=== PATIENT | female | born 1970 | race Caucasian/White ===

== ENCOUNTER 2018-02-06 08:55 | Inpatient (IN) | payer OTHER, SELFPAY | END 2018-02-07 18:30 | DRG 918 | PROVIDERS: Admitting Provider Internal Medicine; Emergency Provider Emergency Medicine; Family Provider Nurse Practitioner Family; PCP Nurse Practitioner Family; Visit Provider Internal Medicine | DX: T39.012A Poisoning by aspirin, intentional self-harm, initial encounter (principal); E87.3 Alkalosis; F32.9 Major depressive disorder, single episode, unspecified; Z87.891 Personal history of nicotine dependence | CPT/HCPCS: 36000; 36415; 36600; 74010; 74019; 80051; 80053; 80305; 80320; 80329; 81003; 82805; 83930; 84439; 84443; 85025; 87797; 93005; 93010; 96361; 96365; 96366; 99058; 99285; G0480; J1650; J3480 ==

== ENCOUNTER → 2018-08-05 12:44 | Outpatient (CLI) | payer OTHER, SELFPAY ==
--- NOTE | 2018-08-05 | DI.MG.S_ITS ---
BILATERAL DIGITAL SCREENING MAMMOGRAM 3D/2D WITH CAD: 08/05/2018 CLINICAL: Routine screening. Comparison is made to exams dated: 08/02/2017 mammogram, 08/11/2016 mammogram, and 07/31/2016 mammogram - [facility]. The tissue of both breasts is heterogeneously dense. This may lower the sensitivity of mammography. Current study was also evaluated with a Computer Aided Detection (CAD) system. There is architectural distortion in the left breast at 6 o'clock middle depth. No other significant masses, calcifications, or other findings are seen in either breast. IMPRESSION: INCOMPLETE: NEEDS ADDITIONAL IMAGING EVALUATION The architectural distortion in the left breast is indeterminate. Additional views with possible ultrasound are recommended. This exam was interpreted at Station ID: [id number]. NOTE: For mammograms, a report in lay terms will be sent to the patient. Approximately 15% of breast malignancies will not be visualized mammographically. In the management of a palpable breast mass, a negative mammogram must not discourage biopsy of a clinically suspicious lesion. Electronically Signed By: Lynn [email or web address]/[email or web address]:08/06/2018 10:46:54 letter sent: Additional Imaging Needed ACR BI-RADS Category 0: Incomplete 3340F
== END ==
PROVIDERS: Family Provider Nurse Practitioner Family; PCP Nurse Practitioner Family; Visit Provider Nurse Practitioner Family
DX: Z12.31 Encounter for screening mammogram for malignant neoplasm of breast (principal)
CPT/HCPCS: 77063; 77067

== ENCOUNTER → 2018-08-30 08:20 | Outpatient (CLI) | payer OTHER, SELFPAY ==
--- NOTE | 2018-08-30 | DI.MG.S_ITS ---
UNILATERAL LEFT DIGITAL DIAGNOSTIC MAMMOGRAM 3D/2D WITH ADDITIONAL VIEWS: 08/30/2018 CLINICAL: Additional evaluation requested from prior study. Comparison is made to exams dated: 08/05/2018 mammogram, 08/02/2017 mammogram, 08/11/2016 mammogram, and 07/31/2016 mammogram - [facility]. The tissue of left breast is heterogeneously dense. This may lower the sensitivity of mammography. The architectural distortion in the left breast at 6 o'clock middle depth is not seen in additional views. No other significant masses or calcifications are seen in the breast. IMPRESSION: There is no mammographic evidence of malignancy. A 1 year screening mammogram is recommended. This exam was interpreted at Station ID: [id number]. NOTE: For mammograms, a report in lay terms will be sent to the patient. Approximately 15% of breast malignancies will not be visualized mammographically. In the management of a palpable breast mass, a negative mammogram must not discourage biopsy of a clinically suspicious lesion. Electronically Signed By: Lynn Alvarado M.D. lk/:08/30/2018 08:56:43 letter sent: Normal Exam ACR BI-RADS Category 2: Benign Finding(s) 3342F
== END ==
PROVIDERS: Family Provider Nurse Practitioner Family; PCP Nurse Practitioner Family; Visit Provider Nurse Practitioner Family
DX: R92.8 Other abnormal and inconclusive findings on diagnostic imaging of breast (principal)
CPT/HCPCS: 77065; G0279

== ENCOUNTER → 2018-09-29 17:29 | Outpatient (CLI) | payer OTHER, SELFPAY ==
[2018-09-29 18:12] LABS: Influenza A and B by PCR Rapid Negative (Negative)
== END ==
PROVIDERS: Family Provider Nurse Practitioner Family; PCP Nurse Practitioner Family; Visit Provider Physician Assistant
DX: R68.89 Other general symptoms and signs (principal)
CPT/HCPCS: 87400

== ENCOUNTER → 2018-10-17 18:40 | Outpatient (CLI) | payer OTHER, SELFPAY ==
--- NOTE | 2018-10-17 18:41 | DI.RAD.S_ITS ---
PROCEDURE: XR SHOULDER RT MIN 2V INDICATIONS: pain with lateral and forward abduction TECHNIQUE: 3 views of the shoulder were acquired. COMPARISON: None. FINDINGS: Bones: No fractures or dislocations. No suspicious bony lesions. Visualized ribs appear intact. Mild AC joint degeneration. Mild glenohumeral degenerative joint disease Soft tissues: No suspicious soft tissue calcifications. IMPRESSION: Mild right shoulder joint degeneration. Dictated by: Bean Street M.D. on 10/17/2018 at 19:02 Approved by: Bean Street M.D. on 10/17/2018 at 19:03
== END ==
PROVIDERS: Family Provider Nurse Practitioner Family; PCP Nurse Practitioner Family; Visit Provider Physician Assistant
DX: M25.511 Pain in right shoulder (principal); M19.011 Primary osteoarthritis, right shoulder
CPT/HCPCS: 73030

== ENCOUNTER → 2018-10-21 13:44 | Outpatient (CLI) | payer OTHER, SELFPAY ==
--- NOTE | 2018-10-21 13:45 | DI.MRI.S_ITS ---
PROCEDURE: MR SHOULDER RT WO CON INDICATIONS: Right shoulder pain with foward and lateral abduction TECHNIQUE: Noncontrast oblique coronal T2 fast spin echo with fat saturation, oblique sagittal T1 spin echo and T2 fast spin echo with fat saturation, axial T1 spin echo and T2 fast spin echo with fat saturation through the shoulder. COMPARISON: None. FINDINGS: Image quality: Excellent. Rotator cuff: There is moderate grade bursal surface partial thickness tear involving anterior fibers of the distal supraspinatus at its insertion on greater tuberosity of humeral head extending to the musculotendinous junction at the level of the a.c. joint. Tendinosis and low-grade bursal surface partial-thickness tear involving the posterior fibers of the distal supraspinatus and infraspinatus is seen. Distal subscapularis tendinosis or low-grade intrasubstance partial thickness tear is seen. No full-thickness rotator cuff tendon rupture. Sagittal images demonstrate mild supraspinatus muscle atrophy. Bones and bursae: No bone marrow contusions or fractures. Mild to moderate acromioclavicular joint osteoarthritis is seen with inferior osteophyte formation compressing on musculotendinous junction of rotator cuff tendons. Mild to moderate glenohumeral joint osteoarthritis is also seen. Small amount of fluid is seen the glenohumeral joint and subacromial subdeltoid bursa. No gross loose body. Capsule and soft tissues: In the absence of intra-articular contrast, there is suggestion of superior anterior labral tear from 12 to 2:00 position. Anterior inferior labral tear is also likely present fall 5 to 6:00 position. The glenohumeral ligaments appear intact. The long head of the biceps tendon demonstrates normal location and morphology. The rotator interval appears normal, without fibrosis. The coracohumeral ligament is normal in thickness. IMPRESSION: 1. Tendinosis and moderate to high grade bursal surface partial-thickness tear involving anterior to mid fibers of distal supraspinatus at its insertion on the humeral head extending to musculotendinous junction. Tendinosis and low-grade bursal surface partial-thickness tear involving the posterior fibers of distal supraspinatus and infraspinatus. Distal subscapularis tendinosis and low-grade intrasubstance partial thickness tear. Mild supraspinatus muscle atrophy. 2. Suggestion of anterior superior labral tear at 12 to 2:00 position and an anterior inferior labral tear at 5 to 6:00 position. 3. Mild to moderate acromioclavicular joint and glenohumeral joint osteoarthritis. Dictated by: Tony Singer M.D. on 10/21/2018 at 14:21 Approved by: Tony Singer M.D. on 10/21/2018 at 14:38
== END ==
PROVIDERS: Family Provider Nurse Practitioner Family; PCP Nurse Practitioner Family; Visit Provider Physician Assistant
DX: M25.511 Pain in right shoulder (principal); M75.111 Incomplete rotator cuff tear or rupture of right shoulder, not specified as traumatic; M19.011 Primary osteoarthritis, right shoulder
CPT/HCPCS: 73221

== ENCOUNTER → 2018-11-18 08:36 | Outpatient (CLI) | payer OTHER, SELFPAY ==
--- NOTE | 2018-11-18 | DI.US.S_ITS ---
PROCEDURE: US ABDOMEN COMPLETE INDICATIONS: ELEVATED LIVER ENZYMES TECHNIQUE: Real-time scanning was performed of the abdominal and retroperitoneal organs, with image documentation. COMPARISON: [facility], , ABDOMEN 2 VIEW, 02/06/2018, 12:38. FINDINGS: Liver: Liver is normal in size (right hepatic lobe measuring 15.0 cm in sagittal diameter) and is diffusely increased in echogenicity. The imaged portions of the hepatic veins and portal vein appear patent on Doppler imaging. Gallbladder: Gallbladder appears unremarkable. Negative sonographic Garrido's sign per suspender cutter. Biliary ducts: Intrahepatic bile ducts are non-dilated. Extrahepatic bile duct caliber measures 5 mm in greatest diameter. Pancreas: Visualized portions of the pancreatic head are unremarkable. Pancreatic body and tail are obscured by overlying bowel gas. Spleen: Spleen is normal in size (9.2 cm in long axis) and homogeneous in echotexture. Kidneys: Kidneys are normal in size and echotexture. Right kidney measures 10.8 cm long; left kidney measures 10.4 cm long. No hydronephrosis or nephrolithiasis. Aorta: Proximal abdominal aorta measures 2.2 cm in diameter. Mid-abdominal aorta measures 2.0 cm in diameter. Distal abdominal aorta measures 1.7 cm in diameter. Iliacs: Proximal common iliac arteries are not seen on this exam, as they are obscured by overlying bowel gas IVC: Intrahepatic inferior vena cava appears patent. Miscellaneous: There is a trace pleural fluid/effusion seen near the left hepatic lobe. IMPRESSION: 1. Increased hepatic echogenicity, which can be seen with hepatic steatosis, hepatic fibrosis/cirrhosis, and/or hepatitis. 2. Trace pleural fluid/effusion. Dictated by: James Rasmussen M.D. on 11/18/2018 at 10:44 Approved by: James Rasmussen M.D. on 11/18/2018 at 11:05
== END ==
PROVIDERS: Family Provider Nurse Practitioner Family; PCP Nurse Practitioner Family; Visit Provider Nurse Practitioner Family
DX: R74.8 Abnormal levels of other serum enzymes (principal)
CPT/HCPCS: 76700

== ENCOUNTER → 2018-12-21 15:20 | Outpatient (CLI) | payer OTHER, SELFPAY ==
[2018-12-21 15:46] LABS: Influenza A and B by PCR Rapid Negative (Negative)
== END ==
PROVIDERS: Family Provider Nurse Practitioner Family; PCP Nurse Practitioner Family; Visit Provider Physician Assistant
DX: R68.89 Other general symptoms and signs (principal)
CPT/HCPCS: 87400

== ENCOUNTER → 2019-01-09 11:35 | Outpatient (REF) | payer OTHER, SELFPAY ==
[2019-01-09 11:57] LABS: Influenza A and B by PCR Rapid Negative (Negative)
== END ==
LOC: LAB 11:35
PROVIDERS: Family Provider Nurse Practitioner Family; PCP Nurse Practitioner Family; Visit Provider Family Medicine
DX: Z11.59 Encounter for screening for other viral diseases (principal)
CPT/HCPCS: 87400

== ENCOUNTER 2019-02-26 19:40 | Emergency (ER) | payer OTHER, SELFPAY ==
[2019-02-26 19:47] VITALS: BP 119/84; PULSE 93; RESP 14; TEMP 36.2; O2SAT 97
--- NOTE | 2019-02-26 19:53 | DI.RAD.S_ITS ---
PROCEDURE: XR HAND RT MIN 3V INDICATIONS: crush injury TECHNIQUE: 3 views of the hand(s) acquired. COMPARISON: None. FINDINGS: Bones: No fractures or dislocations. Carpal bones are normally aligned. No suspicious bony lesions. Soft tissues: No suspicious soft tissue calcifications. IMPRESSION: No fracture Dictated by: Bean Street M.D. on 02/26/2019 at 20:31 Approved by: Bean Street M.D. on 02/26/2019 at 20:32
--- NOTE | 2019-02-26 22:11 | ED.UPPEXIN ---
HPI - Extremity Injury (Upper) <VALENCIA Molina-BC - Last Filed: 02/26/19 22:22> General Chief Complaint: Extremity Injury, Upper Stated Complaint: RT HAND INJURY Time Seen by Provider: 02/26/19 21:55 Source: patient Mode of arrival: ambulatory Limitations: no limitations History of Present Illness HPI narrative: The patient is a 48-year-old female with history of anxiety and is a former smoker presents with chief complaint of right hand pain. 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 She complains of bruising. She has not taken anything for pain. She is worried about a fracture. She denies any previous injuries to her hand. She is right-hand dominant. Related Data Home Medications Medication Instructions Recorded Confirmed atorvastatin [Lipitor] 10 mg PO HS #0 09/20/17 12/21/18 hydroxyzine pamoate 50 mg capsule 50 mg PO BID PRN cap 04/04/18 12/21/18 topiramate XR 25 mg 25 mg PO DAILY 09/29/18 12/21/18 capsule,extended release 24 hr Previous Rx's Medication Instructions Recorded fluoxetine 20 mg capsule 20 mg PO DAILY #30 cap 04/04/18 methocarbamol 750 mg tablet 1,500 mg PO BEDTIME #30 tab 10/17/18 trazodone 100 mg tablet 100 mg PO BEDTIME PRN #90 tab 12/03/18 Allergies Allergy/AdvReac Type Severity Reaction Status Date / Time No Known Drug Allergies Allergy Verified 02/26/19 19:51 Review of Systems <MAGALIE Molina - Last Filed: 02/26/19 22:22> Review of Systems GENERAL: Denies chills, fatigue, malaise, fever, sweats. HEENT: Denies sinus pain, ear pain, sore throat, difficulty swallowing, dizziness. RESPIRATORY: Denies dyspnea, cough, wheezing, hemoptysis, sputum. CARDIOVASCULAR: Denies chest pain, palpitations, orthopnea, edema, GASTROINTESTINAL: Denies nausea, vomiting, abdominal pain, diarrhea, constipation, melena. : Denies dysuria, frequency, incontinence, hematuria, urinary retention. MUSCULOSKELETAL: See HPI SKIN: See HPI NEUROLOGIC: Denies weakness, headache, numbness, change in speech, confusion, seizures, incoordination. PSYCHIATRIC: No concerning psychosocial issues. 12 point review of systems is negative except for those stated above PFSH <MAGALIE Molina - Last Filed: 02/26/19 22:22> Social History Smoking Status: Former smoker Social History Smoking Status: Former smoker Exam <MAGALIE Molina - Last Filed: 02/26/19 22:22> Narrative Exam Narrative: GENERAL: This is a well-nourished, well-developed patient, no acute distress HEAD: Atraumatic. Normocephalic. No temporal or scalp tenderness. EYES: Pupils equal round and reactive. Extraocular motions intact. No scleral icterus. No injection or drainage. ENT: Nose without bleeding, purulent drainage or septal hematoma. Throat without erythema, tonsillar hypertrophy or exudate. Uvula midline. Airway patent. NECK: Trachea midline. No JVD or lymphadenopathy. Supple, nontender, no meningeal signs. CARDIOVASCULAR: Regular rate and rhythm RESPIRATORY: No cough. No increased respiratory effort. No stridor. EXTREMITIES: Pain to palpation diffusely right hand. Patient is able to flex all fingers, but not fully due to pain. Capillary refill less than 2 seconds all fingers right hand. NEURO: AOx3. SKIN: Diffuse ecchymosis noted on dorsal aspect of right hand going up 2nd and 3rd fingers. No laceration or abrasion. Initial Vital Signs Initial Vital Signs: Vital Signs Temperature 97.2 F L 02/26/19 19:47 Pulse Rate 93 H 02/26/19 19:47 Respiratory Rate 14 02/26/19 19:47 Blood Pressure 119/84 02/26/19 19:47 Pulse Oximetry 97 02/26/19 19:47 <Tee Ellsworth MD - Last Filed: 02/27/19 06:58> Initial Vital Signs Initial Vital Signs: Vital Signs Temperature 97.2 F L 02/26/19 19:47 Pulse Rate 93 H 02/26/19 19:47 Respiratory Rate 14 02/26/19 19:47 Blood Pressure 119/84 02/26/19 19:47 Pulse Oximetry 97 02/26/19 19:47 Course <MAGALIE Molina - Last Filed: 02/26/19 22:22> Orders Ordered: Discontinued Medications Ketorolac Tromethamine (Toradol) 60 mg IM NOW ONE Stop: 02/26/19 22:00 Last Admin: 02/26/19 22:18 Dose: 60 mg Vital Signs - 8 hr 02/26/19 19:47 Temperature 97.2 F L Pulse Rate 93 H Respiratory Rate 14 Blood Pressure 119/84 Pulse Oximetry 97 <Tee Ellsworth MD - Last Filed: 02/27/19 06:58> Orders Ordered: Discontinued Medications Ketorolac Tromethamine (Toradol) 60 mg IM NOW ONE Stop: 02/26/19 22:00 Last Admin: 02/26/19 22:18 Dose: 60 mg Vital Signs - 8 hr 02/26/19 19:47 Temperature 97.2 F L Pulse Rate 93 H Respiratory Rate 14 Blood Pressure 119/84 Pulse Oximetry 97 MDM - Extremity Injury (Upper) <REMIGIO Molina - Last Filed: 02/26/19 22:22> Imaging Data Hand x-ray: Radiologist's impression: [address] [address] XRay Report Signed Patient: Geri Hoskins KMR#: [id number] : 1970Acct:[id number] Age/Sex: 48 / FDate of Service: 02/26/19 Loc: ED Accession Number: [id number] Procedure: XR hand RT min 3V Ordering Provider: Tee Ellsworth MD PROCEDURE: XR HAND RT MIN 3V INDICATIONS: crush injury TECHNIQUE: 3 views of the hand(s) acquired. COMPARISON: None. FINDINGS: Bones: No fractures or dislocations. Carpal bones are normally aligned. No suspicious bony lesions. Soft tissues: No suspicious soft tissue calcifications. IMPRESSION: No fracture Dictated by: Bean Street M.D. on 02/26/2019 at 20:31 Approved by: Bean Street M.D. on 02/26/2019 at 20:32 [facility] Narrative Medical decision making narrative: The patient is a 48-year-old female who presents with right hand pain after an impact. She has a negative x-ray, but ecchymosis. She is neurovascularly intact. She was given Toradol in the emergency department. I discussed at length the rest ice compression elevation as well as follow up with primary care provider. Given that her job does a lot of lifting and she is right-hand dominant, I did give her few days off of work. I encouraged continued ibuprofen and Tylenol. Discussed taking ibuprofen immediately after Toradol injection awaiting 6-8 hours. Discussed monitoring circulation of the fingers and following up if any acute concerns. No questions or concerns upon discharge. Discharge Plan Departure Patient Disposition: Home Clinical Impression: Contusion Qualifiers: Encounter type: initial encounter Contusion area: hand Laterality: right Qualified Code(s): S60.221A - Contusion of right hand, initial encounter Discharge Date/Time: 02/26/19 22:28 Interventions: ED Discharge Assessment Last Done: 02/26/19 23:10 Instructions: DI for Contusion, DI for Hand Pain Activity Restrictions/Additional Instructions: Your x-rays came back negative. Please follow up with your primary care provider for re-evaluation. I have given you a few days off. Please use rest ice compression elevation. Please use [id number] pain medications as needed and able. Please do not take ibuprofen for 6-8 hours after the Toradol injection in the emergency department. Prescriptions: No Action topiramate 25 mg capsule,extended release 24hr 25 mg PO DAILY RF: 0 methocarbamol 750 mg tablet 1,500 mg PO BEDTIME Qty: 30 RF: 0 fluoxetine 20 mg capsule 20 mg PO DAILY Qty: 30 RF: 2 hydroxyzine pamoate 50 mg capsule 50 mg PO BID PRNRF: 0 atorvastatin [Lipitor] 10 MG tablet 10 mg PO HS Qty: 0 RF: 0 trazodone 100 mg tablet 100 mg PO BEDTIME PRN (Reason: insomnia) Qty: 90 RF: 1 Referrals: Caryn Bagley ARNP [Primary Care Provider] - Stand Alone Forms: Work Release Note <Tee Ellsworth MD - Last Filed: 02/27/19 06:58> Cosign ED Attending Shukriature Attestation: I was present in the ER at the time of this patient's care. I was available for consultation or to see the patient directly if requested. I agree with the evaluation, assessment and treatment plan noted in the record.
--- NOTE | 2019-02-26 22:14 | ED_ITS ---
HPI - Extremity Injury (Upper) <VALENCIA Molina-BC - Last Filed: 02/26/19 22:22> General Chief Complaint: Extremity Injury, Upper Stated Complaint: RT HAND INJURY Time Seen by Provider: 02/26/19 21:55 Source: patient Mode of arrival: ambulatory Limitations: no limitations History of Present Illness HPI narrative: The patient is a 48-year-old female with history of anxiety and is a former smoker presents with chief complaint of right hand pain. 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 She complains of bruising. She has not taken anything for pain. She is worried about a fracture. She denies any previous injuries to her hand. She is right-hand dominant. Related Data Home Medications Medication Instructions Recorded Confirmed atorvastatin [Lipitor] 10 mg PO HS #0 09/20/17 12/21/18 hydroxyzine pamoate 50 mg capsule 50 mg PO BID PRN cap 04/04/18 12/21/18 topiramate XR 25 mg 25 mg PO DAILY 09/29/18 12/21/18 capsule,extended release 24 hr Previous Rx's Medication Instructions Recorded fluoxetine 20 mg capsule 20 mg PO DAILY #30 cap 04/04/18 methocarbamol 750 mg tablet 1,500 mg PO BEDTIME #30 tab 10/17/18 trazodone 100 mg tablet 100 mg PO BEDTIME PRN #90 tab 12/03/18 Allergies Allergy/AdvReac Type Severity Reaction Status Date / Time No Known Drug Allergies Allergy Verified 02/26/19 19:51 Review of Systems <MAGALIE Molina - Last Filed: 02/26/19 22:22> Review of Systems GENERAL: Denies chills, fatigue, malaise, fever, sweats. HEENT: Denies sinus pain, ear pain, sore throat, difficulty swallowing, dizziness. RESPIRATORY: Denies dyspnea, cough, wheezing, hemoptysis, sputum. CARDIOVASCULAR: Denies chest pain, palpitations, orthopnea, edema, GASTROINTESTINAL: Denies nausea, vomiting, abdominal pain, diarrhea, constipation, melena. : Denies dysuria, frequency, incontinence, hematuria, urinary retention. MUSCULOSKELETAL: See HPI SKIN: See HPI NEUROLOGIC: Denies weakness, headache, numbness, change in speech, confusion, seizures, incoordination. PSYCHIATRIC: No concerning psychosocial issues. 12 point review of systems is negative except for those stated above PFSH <MAGALIE Molina - Last Filed: 02/26/19 22:22> Social History Smoking Status: Former smoker Social History Smoking Status: Former smoker Exam <MAGALIE Molina - Last Filed: 02/26/19 22:22> Narrative Exam Narrative: GENERAL: This is a well-nourished, well-developed patient, no acute distress HEAD: Atraumatic. Normocephalic. No temporal or scalp tenderness. EYES: Pupils equal round and reactive. Extraocular motions intact. No scleral icterus. No injection or drainage. ENT: Nose without bleeding, purulent drainage or septal hematoma. Throat without erythema, tonsillar hypertrophy or exudate. Uvula midline. Airway patent. NECK: Trachea midline. No JVD or lymphadenopathy. Supple, nontender, no meningeal signs. CARDIOVASCULAR: Regular rate and rhythm RESPIRATORY: No cough. No increased respiratory effort. No stridor. EXTREMITIES: Pain to palpation diffusely right hand. Patient is able to flex all fingers, but not fully due to pain. Capillary refill less than 2 seconds all fingers right hand. NEURO: AOx3. SKIN: Diffuse ecchymosis noted on dorsal aspect of right hand going up 2nd and 3rd fingers. No laceration or abrasion. Initial Vital Signs Initial Vital Signs: Vital Signs Temperature 97.2 F L 02/26/19 19:47 Pulse Rate 93 H 02/26/19 19:47 Respiratory Rate 14 02/26/19 19:47 Blood Pressure 119/84 02/26/19 19:47 Pulse Oximetry 97 02/26/19 19:47 <Tee Ellsworth MD - Last Filed: 02/27/19 06:58> Initial Vital Signs Initial Vital Signs: Vital Signs Temperature 97.2 F L 02/26/19 19:47 Pulse Rate 93 H 02/26/19 19:47 Respiratory Rate 14 02/26/19 19:47 Blood Pressure 119/84 02/26/19 19:47 Pulse Oximetry 97 02/26/19 19:47 Course <MAGALIE Molina - Last Filed: 02/26/19 22:22> Orders Ordered: Discontinued Medications Ketorolac Tromethamine (Toradol) 60 mg IM NOW ONE Stop: 02/26/19 22:00 Last Admin: 02/26/19 22:18 Dose: 60 mg Vital Signs - 8 hr 02/26/19 19:47 Temperature 97.2 F L Pulse Rate 93 H Respiratory Rate 14 Blood Pressure 119/84 Pulse Oximetry 97 <Tee Ellsworth MD - Last Filed: 02/27/19 06:58> Orders Ordered: Discontinued Medications Ketorolac Tromethamine (Toradol) 60 mg IM NOW ONE Stop: 02/26/19 22:00 Last Admin: 02/26/19 22:18 Dose: 60 mg Vital Signs - 8 hr 02/26/19 19:47 Temperature 97.2 F L Pulse Rate 93 H Respiratory Rate 14 Blood Pressure 119/84 Pulse Oximetry 97 MDM - Extremity Injury (Upper) <REMIGIO Molina - Last Filed: 02/26/19 22:22> Imaging Data Hand x-ray: Radiologist's impression: [address] [address] XRay Report Signed Patient: Geri Hoskins KMR#: [id number] : 1970Acct:[id number] Age/Sex: 48 / FDate of Service: 02/26/19 Loc: ED Accession Number: [id number] Procedure: XR hand RT min 3V Ordering Provider: Tee Ellsworth MD PROCEDURE: XR HAND RT MIN 3V INDICATIONS: crush injury TECHNIQUE: 3 views of the hand(s) acquired. COMPARISON: None. FINDINGS: Bones: No fractures or dislocations. Carpal bones are normally aligned. No suspicious bony lesions. Soft tissues: No suspicious soft tissue calcifications. IMPRESSION: No fracture Dictated by: Bean Street M.D. on 02/26/2019 at 20:31 Approved by: Bean Street M.D. on 02/26/2019 at 20:32 [facility] Narrative Medical decision making narrative: The patient is a 48-year-old female who presents with right hand pain after an impact. She has a negative x-ray, but ecchymosis. She is neurovascularly intact. She was given Toradol in the emergency department. I discussed at length the rest ice compression elevation as well as follow up with primary care provider. Given that her job does a lot of lifting and she is right-hand dominant, I did give her few days off of work. I encouraged continued ibuprofen and Tylenol. Discussed taking ibuprofen immediately after Toradol injection awaiting 6-8 hours. Discussed monitoring circulation of the fingers and following up if any acute concerns. No questions or concerns upon discharge. Discharge Plan Departure Patient Disposition: Home Clinical Impression: Contusion Qualifiers: Encounter type: initial encounter Contusion area: hand Laterality: right Qualified Code(s): S60.221A - Contusion of right hand, initial encounter Discharge Date/Time: 02/26/19 22:28 Interventions: ED Discharge Assessment Last Done: 02/26/19 23:10 Instructions: DI for Contusion, DI for Hand Pain Activity Restrictions/Additional Instructions: Your x-rays came back negative. Please follow up with your primary care provider for re-evaluation. I have given you a few days off. Please use rest ice compression elevation. Please use [id number] pain medications as needed and able. Please do not take ibuprofen for 6-8 hours after the Toradol injection in the emergency department. Prescriptions: No Action topiramate 25 mg capsule,extended release 24hr 25 mg PO DAILY RF: 0 methocarbamol 750 mg tablet 1,500 mg PO BEDTIME Qty: 30 RF: 0 fluoxetine 20 mg capsule 20 mg PO DAILY Qty: 30 RF: 2 hydroxyzine pamoate 50 mg capsule 50 mg PO BID PRNRF: 0 atorvastatin [Lipitor] 10 MG tablet 10 mg PO HS Qty: 0 RF: 0 trazodone 100 mg tablet 100 mg PO BEDTIME PRN (Reason: insomnia) Qty: 90 RF: 1 Referrals: Caryn Bagley ARNP [Primary Care Provider] - Stand Alone Forms: Work Release Note <Tee Ellsworth MD - Last Filed: 02/27/19 06:58> Cosign ED Attending Shukriature Attestation: I was present in the ER at the time of this patient's care. I was available for consultation or to see the patient directly if requested. I agree with the evaluation, assessment and treatment plan noted in the record.
[2019-02-26] MEDS: KETOROLAC 60 MG/2 ML VIAL IM (22:18)
[2019-02-26 22:22] VITALS: BP 142/83; PULSE 70; RESP 18; O2SAT 99
[2019-02-26 22:44] VITALS: PULSE 70
== END 2019-02-26 22:28 | disposition home or self-care (01) ==
PROVIDERS: Emergency Provider Nurse Practitioner Family; Family Provider Nurse Practitioner Family; PCP Nurse Practitioner Family
DX: S60.221A Contusion of right hand, initial encounter (principal); W23.1XXA Caught, crushed, jammed, or pinched between stationary objects, initial encounter; Y99.0 Civilian activity done for income or pay
CPT/HCPCS: 73130; 96372; 99282; 99283; J1885

== ENCOUNTER → 2019-08-06 11:18 | Outpatient (CLI) | payer OTHER, SELFPAY ==
--- NOTE | 2019-08-06 | DI.MG.S_ITS ---
BILATERAL DIGITAL SCREENING MAMMOGRAM 3D/2D WITH CAD: 08/06/2019 CLINICAL: Routine screening. Comparison is made to exams dated: 08/05/2018 mammogram, 08/02/2017 mammogram, and 07/31/2016 mammogram - [facility]. The tissue of both breasts is heterogeneously dense. This may lower the sensitivity of mammography. Current study was also evaluated with a Computer Aided Detection (CAD) system. No significant masses, calcifications, or other findings are seen in either breast. There has been no significant interval change. IMPRESSION: NEGATIVE There is no mammographic evidence of malignancy. A 1 year screening mammogram is recommended. This exam was interpreted at Station ID: [id number]. NOTE: For mammograms, a report in lay terms will be sent to the patient. Approximately 15% of breast malignancies will not be visualized mammographically. In the management of a palpable breast mass, a negative mammogram must not discourage biopsy of a clinically suspicious lesion. Electronically Signed By: Lynn elizalde/meghan:08/06/2019 13:04:27 letter sent: Normal Exam ACR BI-RADS Category 1: Negative [id number]
== END ==
PROVIDERS: Family Provider Nurse Practitioner Family; PCP Nurse Practitioner Family; Visit Provider Nurse Practitioner Family
DX: Z12.31 Encounter for screening mammogram for malignant neoplasm of breast (principal)
CPT/HCPCS: 77063; 77067

== ENCOUNTER → 2019-12-29 10:24 | Outpatient (ROUT) | payer OTHER, SELFPAY ==
[2019-12-29 11:11] LABS: Influenza A - CEPHEID Flu A NEGATIVE (NEGATIVE); Influenza B - CEPHEID Flu B NEGATIVE (NEGATIVE)
== END ==
PROVIDERS: PCP Nurse Practitioner Family; Visit Provider Internal Medicine
DX: R50.9 Fever, unspecified (principal)
CPT/HCPCS: 87502

== ENCOUNTER → 2020-06-15 12:38 | Outpatient (CLI) | payer OTHER, SELFPAY ==
--- NOTE | 2020-06-15 | DI.RAD.S_ITS ---
PROCEDURE: XR CERVICAL SPINE 2V OR 3V INDICATIONS: RIGHT RADICULAR HAND PAIN, RIGHT SHOULDER PAIN TECHNIQUE: 3 view(s) of the cervical spine were acquired. COMPARISON: None. FINDINGS: Bones: No fractures or dislocations to the T1 level. The lateral masses of C1 appear intact on the odontoid view. No suspicious bony lesions. There is a moderate degree of degenerative disc height reduction at C3-C4 with facet osteoarthritis that appears moderately severe and there is associated grade 1 anterolisthesis of C3 on C4. A similar degree of anterolisthesis of C4 on C5 is associated with moderate degenerative disc disease and facet osteoarthritis. Moderately severe to severe degenerative see 5-C6 and C6-C7 disc height reduction and endplate osteophyte formation is present to the degree that additional spinal and foraminal stenosis at these levels likely would be present. Soft tissues: No prevertebral soft tissue swelling. IMPRESSION: Moderately severe to severe mid and lower cervical degenerative disc disease and facet osteoarthritis allowing anterolisthesis, grade 1, of C3 on C4, and C4 on C5. Both spinal and foraminal stenosis would be expected at multiple levels along the cervical spine given the degree of degeneration found. Dictated by: Justin Martino M.D. on 06/15/2020 at 13:15 Approved by: Justin Martino M.D. on 06/15/2020 at 13:17
== END ==
PROVIDERS: Family Provider Nurse Practitioner Family; PCP Internal Medicine; Referring Provider Internal Medicine; Visit Provider Internal Medicine
DX: M25.511 Pain in right shoulder (principal); M79.641 Pain in right hand; M50.31 Other cervical disc degeneration, high cervical region; M47.812 Spondylosis without myelopathy or radiculopathy, cervical region; M43.12 Spondylolisthesis, cervical region
CPT/HCPCS: 72040

== ENCOUNTER 2020-07-20 18:06 | Emergency (ER) | payer OTHER, SELFPAY ==
[2020-07-20 18:11] VITALS: BP 139/82; PULSE 78; RESP 18; TEMP 36.8; O2SAT 100; BMI 27.9
--- NOTE | 2020-07-20 19:19 | ED.NECK ---
HPI - Neck Pain/Injury General Chief Complaint: Neck Pain/Injury Stated Complaint: MUSCLE ACHE NECK PAIN Time Seen by Provider: 07/20/20 19:09 Source: patient and family Mode of arrival: Ambulatory Limitations: no limitations History of Present Illness HPI Narrative: Patient here for chronic neck pain with exacerbation worsening the past 3-4 days. Ongoing for the past 2 years. Seen by primary care physician recently in the last month and had x-ray of the cervical spine noting degenerative disc disease. Patient is in the process of starting her 1st physical therapy session tomorrow. She is not received 1st appointment with her orthopedic surgeon yet. No MRI until completion of physical therapy. Denies any bowel or bladder incontinence or retention. No numbness or tingling to the feet or groin. Pain radiates on the right side and goes to the thumb index and middle fingers. No weakness. Pain limits range of motion of the right arm, not weakness. Again not weakness. No recent illness fever chills. Pain with rotation of the neck to the right. Pain of the right neck with attempt to forward flex the right arm or bring right hand behind the back. Is on light duty at work. Is off work for the next 3 days. 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 employer complaint: neck pain Related Data Home Medications Medication Instructions Recorded Confirmed atorvastatin [Lipitor] 10 mg PO HS #0 09/20/17 07/08/20 hydroxyzine pamoate 50 mg capsule 50 mg PO BID PRN cap 04/04/18 07/08/20 topiramate 25 mg capsule,extended 25 mg PO DAILY 09/29/18 07/08/20 release 24 hr estradiol 0.5 mg tablet 0.5 mg PO DAILY 07/08/20 07/08/20 melatonin 5 mg tablet 10 mg PO BEDTIME PRN 07/08/20 07/08/20 progesterone micronized 100 mg 100 mg PO QAM 07/08/20 07/08/20 capsule Previous Rx's Medication Instructions Recorded methocarbamol 750 mg tablet 1,500 mg PO BEDTIME #30 tab 10/17/18 trazodone 100 mg tablet 100 mg PO BEDTIME PRN #90 tab 07/08/20 diazepam [Valium] 5 mg PO BEDTIME PRN #7 tab 07/20/20 Allergies Allergy/AdvReac Type Severity Reaction Status Date / Time No Known Drug Allergies Allergy Verified 07/20/20 18:15 Review of Systems Review of Systems Narrative: GENERAL: Denies chills, fatigue, malaise, fever, sweats. HEENT: Denies sinus pain, ear pain, sore throat, difficulty swallowing, dizziness. RESPIRATORY: Denies dyspnea, cough, wheezing, hemoptysis, sputum. CARDIOVASCULAR: Denies chest pain, palpitations, orthopnea, edema, GASTROINTESTINAL: Denies nausea, vomiting, abdominal pain, diarrhea, constipation, melena. : Denies dysuria, frequency, incontinence, hematuria, urinary retention. MUSCULOSKELETAL: denies weakness, joint pain, or bony pain, complains of muscle pain. Complains of neck pain SKIN: Denies rash, skin lesions NEUROLOGIC: Denies weakness, headache, numbness, change in speech, confusion, seizures, incoordination. PSYCHIATRIC: No concerning psychosocial issues. ROS Unobtainable: All systems reviewed & are unremarkable except as noted in HPI and below Patient History Medical History Major depressive disorder, recurrent, moderate (Resolved) Salicylate overdose (Acute) Family History Mother No problems noted. Social History marital status: number of children: 2 household members: spouse housing: house occupational status: employed Smoking Status: Former smoker Smoking Status: Former smoker alcohol intake frequency: holidays/special occasions only Substance Use Type: does not use Exam Narrative Exam Narrative: GENERAL: patient appears stated age. Well-nourished, well-developed patient, in no distress, not toxic HEAD: Atraumatic. Normocephalic. EYES: Pupils equal round and reactive. Extraocular motions intact. No scleral icterus. No injection or drainage. ENT: Nose without bleeding, purulent drainage. Throat without erythema, tonsillar hypertrophy or exudate. Airway patent. NECK: Trachea midline. No midline tenderness or step-off. There is muscle spasm of the trapezius right greater than left as well as the right paracervical muscles. Increased pain with rotating head to the right. Able to rotate head to the left tilt up and down. CARDIOVASCULAR: Regular rate and rhythm without murmurs, gallops, or rubs. RESPIRATORY: Clear to auscultation. Breath sounds equal bilaterally. No wheezes, rales, or rhonchi. GASTROINTESTINAL: Abdomen soft, non-tender, nondistended. EXTREMITIES: No edema or joint tenderness. Pain on the right neck with attempt of right arm forward flexion and bringing the hand behind her back or attempt to do abduction of the right arm to 90? BACK: Nontender without deformity or crepitance. No flank tenderness. NEURO: AOx4. Clear speech no facial droop light touch intact to bilateral face hands and legs/ankles. Strong equal beer still runner compounder. Strong biceps reflex as well as bilateral patellar reflexes. Steady self gait no footdrop. SKIN: No rash or erythema of visible areas PSYCH: Not anxious, is cooperative Initial Vital Signs Initial Vital Signs: Vital Signs Temperature 98.2 F 07/20/20 18:11 Pulse Rate 78 07/20/20 18:11 Respiratory Rate 18 07/20/20 18:11 Blood Pressure 139/82 07/20/20 18:11 Pulse Oximetry 100 07/20/20 18:11 Course Orders Ordered: Discontinued Medications Hydrocodone Bitart/Acetaminophen ([place] 5/325) 2 tab PO NOW ONE Stop: 07/20/20 19:19 Last Admin: 07/20/20 19:25 Dose: 2 tab Documented by: IMTIAZ Ketorolac Tromethamine (Toradol) 30 mg IM NOW ONE Stop: 07/20/20 19:19 Last Admin: 07/20/20 19:26 Dose: 30 mg Documented by: IMTIAZ Ondansetron HCl (Zofran Odt) 4 mg SL NOW ONE Stop: 07/20/20 19:19 Last Admin: 07/20/20 19:24 Dose: 4 mg Documented by: IMTIAZ Prednisone (Deltasone) 60 mg PO NOW ONE Stop: 07/20/20 19:19 Last Admin: 07/20/20 19:24 Dose: 60 mg Documented by: IMTIAZ Reevaluation(s) Reevaluation #1: is driving. They agree with treatment plan tonight. Time: 19:28 Vital Signs Vital signs: Vital Signs - 8 hr 07/20/20 18:11 07/20/20 19:44 Temperature 98.2 F Pulse Rate 78 70 Respiratory Rate 18 16 Blood Pressure 139/82 115/67 Pulse Oximetry 100 99 MDM - Neck Pain/Injury Differential Diagnosis Differential diagnosis: Likely cervical radiculopathy Medical Records Attestation: I reviewed the patient's medical records. Medical records narrative: [address] [address] XRay Report Signed Patient: Geri Hoskins KMR#: [id number] : 1970Acct:[id number] Age/Sex: 49 / FDate of Service: 06/15/20 Loc: RAD Accession Number: [id number] Procedure: XR cervical spine 2V or 3V Ordering Provider: Ana Reyes PROCEDURE: XR CERVICAL SPINE 2V OR 3V INDICATIONS: RIGHT RADICULAR HAND PAIN, RIGHT SHOULDER PAIN TECHNIQUE: 3 view(s) of the cervical spine were acquired. COMPARISON: None. FINDINGS: Bones: No fractures or dislocations to the T1 level. The lateral masses of C1 appear intact on the odontoid view. No suspicious bony lesions. There is a moderate degree of degenerative disc height reduction at C3-C4 with facet osteoarthritis that appears moderately severe and there is associated grade 1 anterolisthesis of C3 on C4. A similar degree of anterolisthesis of C4 on C5 is associated with moderate degenerative disc disease and facet osteoarthritis. Moderately severe to severe degenerative see 5-C6 and C6-C7 disc height reduction and endplate osteophyte formation is present to the degree that additional spinal and foraminal stenosis at these levels likely would be present. Soft tissues: No prevertebral soft tissue swelling. IMPRESSION: Moderately severe to severe mid and lower cervical degenerative disc disease and facet osteoarthritis allowing anterolisthesis, grade 1, of C3 on C4, and C4 on C5. Both spinal and foraminal stenosis would be expected at multiple levels along the cervical spine given the degree of degeneration found. Dictated by: Justin Martino M.D. on 06/15/2020 at 13:15 Approved by: Justin Martino M.D. on 06/15/2020 at 13:17 [facility] Narrative Medical decision making narrative: No labs or imaging indicated tonight. This is ongoing. Acute on chronic exacerbation of right neck pain with cervical radiculopathy. No neuro deficits otherwise. No recent illness. Appropriate for discharge home Discharge Plan Departure Patient Disposition: Home Clinical Impression: Cervical radiculopathy Discharge Date/Time: 07/20/20 19:45 Instructions: DI for Cervical Radiculopathy, DI for Neck Pain, DI for Degenerative Disc Disease Activity Restrictions/Additional Instructions: No driving tonight. Be sure to attend to your 1st physical therapy session tomorrow. See family doctor as scheduled. Return if worse or if any questions or concerns. See orthopedic referral as provided by your family physician. Prescriptions: New diazepam [Valium] 5 mg tablet 5 mg PO BEDTIME PRN (Reason: muscle spasm) Qty: 7 RF: 0 No Action topiramate 25 mg capsule,extended release 24hr 25 mg PO DAILY RF: 0 methocarbamol 750 mg tablet 1,500 mg PO BEDTIME Qty: 30 RF: 0 hydroxyzine pamoate 50 mg capsule 50 mg PO BID PRNRF: 0 progesterone micronized 100 mg capsule 100 mg PO QAM RF: 0 estradiol 0.5 mg tablet 0.5 mg PO DAILY RF: 0 trazodone 100 mg tablet 100 mg PO BEDTIME PRN (Reason: insomnia) Qty: 90 RF: 3 melatonin 5 mg tablet 10 mg PO BEDTIME PRNRF: 0 atorvastatin [Lipitor] 10 MG tablet 10 mg PO HS Qty: 0 RF: 0 Referrals: Ana Reyes ARNP [Primary Care Provider] -
[2020-07-20] MEDS: predniSONE 20 MG TABLET 60 MG PO (19:24)
[2020-07-20] MEDS: ONDANSETRON 4 MG ODT SL (19:24)
[2020-07-20] MEDS: HYDROCODONE/ACET 5/325 TABLET 2 TAB PO (19:25)
[2020-07-20] MEDS: KETOROLAC 60 MG/2 ML VIAL 30 MG IM (19:26)
[2020-07-20 19:44] VITALS: BP 115/67; PULSE 70; RESP 16; O2SAT 99
== END 2020-07-20 19:45 | disposition home or self-care (01) ==
PROVIDERS: Emergency Provider Emergency Medicine; Family Provider Internal Medicine; PCP Internal Medicine
DX: M54.12 Radiculopathy, cervical region (principal)
CPT/HCPCS: 96372; 99283; J1885

== ENCOUNTER → 2020-08-11 10:59 | Outpatient (CLI) | payer OTHER, SELFPAY ==
--- NOTE | 2020-08-11 | DI.MG.S_ITS ---
BILATERAL DIGITAL SCREENING MAMMOGRAM 3D/2D WITH CAD: 08/11/2020 CLINICAL: Routine screening. Comparison is made to exams dated: 08/06/2019 mammogram, 08/30/2018 mammogram, and 08/05/2018 mammogram - [facility]. The tissue of both breasts is heterogeneously dense. This may lower the sensitivity of mammography. Current study was also evaluated with a Computer Aided Detection (CAD) system. No significant masses, calcifications, or other findings are seen in either breast. There has been no significant interval change. IMPRESSION: NEGATIVE There is no mammographic evidence of malignancy. A 1 year screening mammogram is recommended. This exam was interpreted at Station ID: [id number]. NOTE: For mammograms, a report in lay terms will be sent to the patient. Approximately 15% of breast malignancies will not be visualized mammographically. In the management of a palpable breast mass, a negative mammogram must not discourage biopsy of a clinically suspicious lesion. Electronically Signed By: Yary quintero/meghan:08/11/2020 17:14:50 letter sent: Normal Exam ACR BI-RADS Category 1: Negative [id number]
== END ==
PROVIDERS: Family Provider Internal Medicine; PCP Internal Medicine; Referring Provider Internal Medicine; Visit Provider Internal Medicine
DX: Z12.31 Encounter for screening mammogram for malignant neoplasm of breast (principal)
CPT/HCPCS: 77063; 77067

== ENCOUNTER 2020-08-20 10:30 | Outpatient (RCR) | payer OTHER, SELFPAY ==
--- NOTE | 2020-07-14 15:51 | PT.OIE ---
Current Diagnoses Pain in right shoulder (07/14/20) Radiculopathy, site unspecified (07/14/20) Cervicalgia (07/14/20) Past Medical History (This Medical Record has been edited. Action required.) Major depressive disorder, recurrent, moderate (Resolved) Salicylate overdose (Acute) Visit Care Team Role Provider Type JACEY Patrick Attending Provider Advanced Bowling Alley Mechanic Family Provider Primary Care Provider Referring Provider Specialty: Family Practice Address: [address] [place] [address], [facility] [place], [facility] Email: [email or web address] Physical Therapy Initial Evaluation PT-OP-A Visit Information Start: 07/13/20 14:06 Freq: Status: Active Protocol: Document 07/14/20 09:45 MB (Rec: 07/14/20 10:02 MB [id number]) Out-Patient Physical Therapy Visit Information Visit Information Visit Type Initial Evaluation Visit Note Healthcare Management, PT only Visit Start Time 09:45 Visit Stop Time 10:30 Total Visit Minutes 45 Visit Number 1 Evaluation Information Evaluation Date 07/14/20 PT-OP-B Current Condition Start: 07/13/20 14:06 Freq: Status: Active Protocol: Document 07/14/20 09:45 MB (Rec: 07/14/20 10:02 MB [id number]) Current Condition History of Current Condition Onset Date 2 years ago, progressive Current Complaints Numbness and tingling right hand, biceps area pain with movement/lift History of Current Condition Pt reports 7/10 right biceps pain with reaching, lifting and stretching and pain in side of right neck (mostly posterior) up to 4/10 and numbness and tingling right hand. Pt reports occ headache up the back of the head and into the right pentecostal. She takes Excedrin Migraine. She gets headaches about 3x/wk. 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 Pt is right handed. Pt was diagnosed with right biceps tendinits 09/2018. She was given a shot. The shot was helpful. She reports numbness dorsal and palmar middle three fingers of her right hand that is worse when her elbow is bent and at night. She was given muscle relaxor and anti- inflammatory at night and they are not helping. She is sleeping on her sides and back . Pt was put on light duty at work and is not supposed to lift more than 2 lbs. 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 She has had trouble with stocking and working in the [employer]. 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 duty until 08/13/2020. Pt reports a familial history of cervical changes. Pt denies further PMH. Prior Treatments and Tests Cervical spine x-ray 06/15/2020: mod to severe mid and lower cervical degenerative disc disease and facet OA allowing anterolisthesis grade 1 of C3 on C4, C4 on C5, spinal and formainal stenosis would be expected at multiple levels 2018 and 2019 biceps cortisone injections Treatment Goals Patient/Caregiver Goals To get this to go away and to have a normal life. I want to be able to sleep through the night. I want to be able to keep my job. I don't want to have surgery. PT-OP-C Subjective Start: 07/13/20 14:06 Freq: Status: Active Protocol: Document 07/14/20 09:45 MB (Rec: 07/14/20 10:02 MB [id number]) OP-PT Subjective Patient Comments Patient Comments See history of current condition Patient Reported Progress Worse Patient Questionnaires Neck Disability Index NDI Score 29 Neck Disability Index Impairment 40 to 59% Impaired (Score 20- 29) Quick Dash- Upper Extremity Quick Dash UE Impairment 60 to 79% Impaired (Score 60- 79) PT-OP-J Posture/Palpation/Skin Start: 07/13/20 14:06 Freq: Status: Active Protocol: Document 07/14/20 09:45 MB (Rec: 07/14/20 15:51 MB [id number]) Posture Evaluation Comments Posture Comments Standing: Dowager's hump, decreased cervical lordosis, decreased thoracic kyphosis, increased lumbar lordosis, right iliac crest higher than the left. PT-OP-K Range of Motion Start: 07/13/20 14:06 Freq: Status: Active Protocol: Document 07/14/20 09:45 MB (Rec: 07/14/20 15:51 MB [id number]) Cervical Spine Range of Motion Cervical Spine Active Testing Position Standing Flexion 18 Extension 40 Rotation Left 38 Rotation Right 40 Lateral Flexion Left 10 Lateral Flexion Right 20 Comments Pt reports increased numbness and tingling in right arm and hand with cervical flexion ( repeated x5) and cervical rotation Shoulder Goniometric Range of Motion Shoulder Right Shoulder ROM WFL No Testing Position Standing Flexion 90 Abduction 28 Comments Pt reports 7-8/10 lateral proximal right shoulder pain with abdcution efforts Left Shoulder ROM WFL Yes Testing Position Standing PT-OP-M Strength Start: 07/13/20 14:06 Freq: Status: Active Protocol: Document 07/14/20 09:45 MB (Rec: 07/14/20 15:51 MB [id number]) Shoulder Strength Shoulder Manual Muscle Testing Right Comments Deferred all MMT d/t pt response to active movement Left Flexion 5 Normal Abduction (C5) 5 Normal External Rotation 5 Normal Internal Rotation 5 Normal Elbow/Forearm Strength Elbow and Forearm Manual Muscle Testing Right Comments Deferred all MMT d/t pt response to active movement Left Flexion (C6) 5 Normal Extension (C7) 5 Normal Pronation 5 Normal Supination 5 Normal Wrist Strength Wrist Manual Muscle Testing Right Comments Deferred all MMT d/t pt response to active movement Left Flexion (C7) 5 Normal Extension (C6) 4 Good PT-OP-Q Treatments Start: 07/13/20 14:06 Freq: Status: Active Protocol: Document 07/14/20 09:45 MB (Rec: 07/14/20 15:28 MB [id number]) Self-Care/Home Management Treatment Education Caregiver Education Benefits of ice and heat, proper sleeping position with towel roll support at neck and pillow between arms, log roll to get in and OOB, pillow support under right arm when sitting PT-OP-T Assessment and Plan Start: 07/13/20 14:06 Freq: Status: Active Protocol: Document 07/14/20 09:45 MB (Rec: 07/14/20 15:47 MB [id number]) Physical Therapy Assessment Rehab Potential Rehabilitation Potential Fair Evaluation Complexity Number of Personal Factors/Comorbidities 1-2 Number of Body Systems Impaired 1-2 Clinical Presentation at Evaluation Evolving Impairments Impairments Activity Tolerance,Functional Mobility,Pain,Posture,ROM, Sensation,Soft Tissue Mobility ,Strength Goals 5 Weasand Trimmer Goal (LTG) Pt will report a 75% improvement in sleeping due to pain to promote restful sleep and recovery by 09/13/2020. LTG Duration 8 weeks 4 Alf Goal (LTG) Pt will perform progressive HEP with I including flexibility, postural and core strengthening, relaxation and ergonomic and body mechanics training to improve pain, posture and strength by 2019. 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 LTG Duration 8 weeks 2 Weasand Trimmer Goal (LTG) Pt will present with an improved NDI score of no more than 20% score to reflect decreased pain with functional activities by 09/13/2020. LTG Duration 8 weeks 1 Weasand Trimmer Goal (LTG) Pt will present with an improved QuickDASH score to reflect no more than 20% impairment to prepare for return to full duty work by . LTG Duration 8 weeks Assessment Summary Assessment Pt is a 50 y/o female presenting with progressive right posterolateral neck and lateral proximal right shoulder (near middle deltoid) pain as well as right 2nd, 3rd, and 4th finger numbness and tingling on palmar and dorsal sides of hand. Pt is tearful about her symptoms and how they are affecting her work, sleep and overall quality of life. Right lateral arm pain is provoked with active right shoulder movement and she cannot abduct her arm much today d/t c/o -05/24. Paresthesias down the arm to the hand increase with active neck flexion and rotation. Hand symptoms are not provoked by passive wrist extension and flexion. Pt's reports that her hand symptoms are worse when her right elbow is bent do not clearly follow a shoulder or cervical pattern d /t this occurs when the arm is supported by pillow. Pt presents with postural changes , decrease range of motion, weakness and myofascial changes. She will benefit from PT to address these deficits, for manual intervention, circuit breaker mechanic and ergonomic education and postural strengthening. Barriers include work requirements, ability to come to therapy only 1x/wk, chronicity of symptoms in setting of cervical changes and pt reporting history of 3 or more family members having had to have cervical surgeries in the past d/t similar presentation . Pt is also very anxious about her condition and states that she is leaving it to therapy to fix her. PT does spend extensive time educating pt about findings on x-ray report, showing drawings in anatomy book and on spinal model about the neck, nerve roots and dermatomes and goal that therapy can improve flexibility, strength, body mechanics and fascial changes but that PT cannot reverse degenerative changes of the spine. Physical Therapy Plan Frequency and Duration Frequency of Treatment 1x/Week Duration of Treatment 8 weeks Plan of Care Start Date 07/14/20 Plan of Care End Date 09/13/20 Therapeutic Interventions Therapeutic Interventions Balance Training,Canalithic Repositioning,Home Exercise Program,Joint Mobilizations, Manual Therapy,Neuromuscular Re-education,Patient/Caregiver Education,Self-Care/Home Management,Sensory Integration ,Soft Tissue Mobilization, Taping,Therapeutic Activities, Therapeutic Exercises Modalities Cold Pack/Ice Massage,Electric Stimulation,Hot Packs, Ultrasound Other Referrals/Consults Referrals/Consults Recommended Speak with doctor about extending light duty through August to allow PT to assist pt in reducing pain and improving posture, ergonomics and body mechanics Next Visit Focus/Plan Next Note Type Treatment Note Next Visit Plan Initiate racquet ball STM as pt tolerates, diaphragm breathing, initiate discussion about work station/body mechanics
--- NOTE | 2020-07-14 15:51 | PT.OPPOC ---
Physical, Occupational & Speech Therapy At [facility] Current Diagnoses Pain in right shoulder (07/14/20) Radiculopathy, site unspecified (07/14/20) Cervicalgia (07/14/20) Visit Care Team Role Provider Type JACEY Patrick Attending Provider Advanced Automation Design Engineer Family Provider Primary Care Provider Referring Provider Specialty: Family Practice Address: [address] [place] [address], [facility] [place], [facility] Email: Plan Of Care PT-OP-T Assessment and Plan Start: 07/13/20 14:06 Freq: Status: Active Protocol: Document 07/14/20 09:45 MB (Rec: 07/14/20 15:47 MB [id number]) Physical Therapy Assessment Rehab Potential Rehabilitation Potential Fair Evaluation Complexity Number of Personal Factors/Comorbidities 1-2 Number of Body Systems Impaired 1-2 Clinical Presentation at Evaluation Evolving Impairments Impairments Activity Tolerance,Functional Mobility,Pain,Posture,ROM, Sensation,Soft Tissue Mobility ,Strength Goals 5 Research Instructor Goal (LTG) Pt will report a 75% improvement in sleeping due to pain to promote restful sleep and recovery by 09/13/2020. LTG Duration 8 weeks 4 Senior Care Goal (LTG) Pt will perform progressive HEP with I including flexibility, postural and core strengthening, relaxation and ergonomic and body mechanics training to improve pain, posture and strength by 2019. 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 LTG Duration 8 weeks 2 Senior Care Goal (LTG) Pt will present with an improved NDI score of no more than 20% score to reflect decreased pain with functional activities by 09/13/2020. LTG Duration 8 weeks 1 Research Instructor Goal (LTG) Pt will present with an improved QuickDASH score to reflect no more than 20% impairment to prepare for return to full duty work by . LTG Duration 8 weeks Assessment Summary Assessment Pt is a 50 y/o female presenting with progressive right posterolateral neck and lateral proximal right shoulder (near middle deltoid) pain as well as right 2nd, 3rd, and 4th finger numbness and tingling on palmar and dorsal sides of hand. Pt is tearful about her symptoms and how they are affecting her work, sleep and overall quality of life. Right lateral arm pain is provoked with active right shoulder movement and she cannot abduct her arm much today d/t c/o 7-05/24. Paresthesias down the arm to the hand increase with active neck flexion and rotation. Hand symptoms are not provoked by passive wrist extension and flexion. Pt's reports that her hand symptoms are worse when her right elbow is bent do not clearly follow a shoulder or cervical pattern d /t this occurs when the arm is supported by pillow. Pt presents with postural changes , decrease range of motion, weakness and myofascial changes. She will benefit from PT to address these deficits, for manual intervention, body man and ergonomic education and postural strengthening. Barriers include work requirements, ability to come to therapy only 1x/wk, chronicity of symptoms in setting of cervical changes and pt reporting history of 3 or more family members having had to have cervical surgeries in the past d/t similar presentation . Pt is also very anxious about her condition and states that she is leaving it to therapy to fix her. PT does spend extensive time educating pt about findings on x-ray report, showing drawings in anatomy book and on spinal model about the neck, nerve roots and dermatomes and goal that therapy can improve flexibility, strength, body mechanics and fascial changes but that PT cannot reverse degenerative changes of the spine. Physical Therapy Plan Frequency and Duration Frequency of Treatment 1x/Week Duration of Treatment 8 weeks Plan of Care Start Date 07/14/20 Plan of Care End Date 09/13/20 Therapeutic Interventions Therapeutic Interventions Balance Training,Canalithic Repositioning,Home Exercise Program,Joint Mobilizations, Manual Therapy,Neuromuscular Re-education,Patient/Caregiver Education,Self-Care/Home Management,Sensory Integration ,Soft Tissue Mobilization, Taping,Therapeutic Activities, Therapeutic Exercises Modalities Cold Pack/Ice Massage,Electric Stimulation,Hot Packs, Ultrasound Other Referrals/Consults Referrals/Consults Recommended Speak with doctor about extending light duty through August to allow PT to assist pt in reducing pain and improving posture, ergonomics and body mechanics Next Visit Focus/Plan Next Note Type Treatment Note Next Visit Plan Initiate jonathan BACK as pt tolerates, diaphragm breathing, initiate discussion about work station/body mechanics Plan of Care Dates Plan of Care Start Date 07/14/20 Plan of Care End Date 09/13/20 Electronically Signed by: Tami Good, PT 07/14/20 [id number] Please Sign and Return: I have reviewed this Plan of Care and certify that the skilled therapy services above are required to meet the patient?s needs. Physician Signature Date Printed Name and Credentials Clinical Instructor Signature Printed Name and Credentials
--- NOTE | 2020-07-21 11:21 | PT.OTN ---
Current Diagnoses Pain in right shoulder (07/21/20) Radiculopathy, site unspecified (07/21/20) Cervicalgia (07/21/20) Physical Therapy Treatment Note PT-OP-A Visit Information Start: 07/13/20 14:06 Freq: Status: Active Protocol: Document 07/21/20 10:31 MB (Rec: 07/21/20 11:21 MB [id number]) Out-Patient Physical Therapy Visit Information Visit Information Visit Type Treatment Note Visit Start Time 10:31 Visit Stop Time 11:15 Total Visit Minutes 44 Visit Number 2 PT-OP-B Current Condition Start: 07/13/20 14:06 Freq: Status: Active Protocol: Document 07/14/20 09:45 MB (Rec: 07/14/20 10:02 MB [id number]) Current Condition History of Current Condition Onset Date 2 years ago, progressive Current Complaints Numbness and tingling right hand, biceps area pain with movement/lift History of Current Condition Pt reports 7/10 right biceps pain with reaching, lifting and stretching and pain in side of right neck (mostly posterior) up to 4/10 and numbness and tingling right hand. Pt reports occ headache up the back of the head and into the right christian. She takes Excedrin Migraine. She gets headaches about 3x/wk. It tends to occur with working in the [employer] and bending her neck with cutting. Pt is right handed. Pt was diagnosed with right biceps tendinits 09/2018. She was given a shot. The shot was helpful. She reports numbness dorsal and palmar middle three fingers of her right hand that is worse when her elbow is bent and at night. She was given muscle relaxor and anti- inflammatory at night and they are not helping. She is sleeping on her sides and back . Pt was put on light duty at work and is not supposed to lift more than 2 lbs. 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 She has had trouble with stocking and working in the [employer]. 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 duty until 08/13/2020. Pt reports a familial history of cervical changes. Pt denies further PMH. Prior Treatments and Tests Cervical spine x-ray 06/15/2020: mod to severe mid and lower cervical degenerative disc disease and facet OA allowing anterolisthesis grade 1 of C3 on C4, C4 on C5, spinal and formainal stenosis would be expected at multiple levels 2018 and 2019 biceps cortisone injections Treatment Goals Patient/Caregiver Goals To get this to go away and to have a normal life. I want to be able to sleep through the night. I want to be able to keep my job. I don't want to have surgery. PT-OP-C Subjective Start: 07/13/20 14:06 Freq: Status: Active Protocol: Document 07/21/20 10:31 MB (Rec: 07/21/20 11:21 MB [id number]) OP-PT Subjective Patient Comments Patient Comments I went to the ED last night. The pain just got so bad that I couldn't manage it. I worked during the day. I have been using ice and heat and using a massager. She is going to follow-up with Dr. Reyes about the pain, wondering about MRI. She got a shot of Tramadol, 7 tablets of Valium and has Meloxicam at home. She sees the doctor after PT today. Dr. Reyes wants to send her to an orthopedic surgeon. PT-OP-J Posture/Palpation/Skin Start: 07/13/20 14:06 Freq: Status: Active Protocol: Document 07/14/20 09:45 MB (Rec: 07/14/20 15:51 MB [id number]) Posture Evaluation Comments Posture Comments Standing: Dowager's hump, decreased cervical lordosis, decreased thoracic kyphosis, increased lumbar lordosis, right iliac crest higher than the left. PT-OP-K Range of Motion Start: 07/13/20 14:06 Freq: Status: Active Protocol: Document 07/14/20 09:45 MB (Rec: 07/14/20 15:51 MB [id number]) Cervical Spine Range of Motion Cervical Spine Active Testing Position Standing Flexion 18 Extension 40 Rotation Left 38 Rotation Right 40 Lateral Flexion Left 10 Lateral Flexion Right 20 Comments Pt reports increased numbness and tingling in right arm and hand with cervical flexion ( repeated x5) and cervical rotation Shoulder Goniometric Range of Motion Shoulder Right Shoulder ROM WFL No Testing Position Standing Flexion 90 Abduction 28 Comments Pt reports 7-8/10 lateral proximal right shoulder pain with abdcution efforts Left Shoulder ROM WFL Yes Testing Position Standing PT-OP-M Strength Start: 07/13/20 14:06 Freq: Status: Active Protocol: Document 07/14/20 09:45 MB (Rec: 07/14/20 15:51 MB [id number]) Shoulder Strength Shoulder Manual Muscle Testing Right Comments Deferred all MMT d/t pt response to active movement Left Flexion 5 Normal Abduction (C5) 5 Normal External Rotation 5 Normal Internal Rotation 5 Normal Elbow/Forearm Strength Elbow and Forearm Manual Muscle Testing Right Comments Deferred all MMT d/t pt response to active movement Left Flexion (C6) 5 Normal Extension (C7) 5 Normal Pronation 5 Normal Supination 5 Normal Wrist Strength Wrist Manual Muscle Testing Right Comments Deferred all MMT d/t pt response to active movement Left Flexion (C7) 5 Normal Extension (C6) 4 Good PT-OP-Q Treatments Start: 07/13/20 14:06 Freq: Status: Active Protocol: Document 07/21/20 10:31 MB (Rec: 07/21/20 11:21 MB [id number]) Therapeutic Exercises Supine Exercises Hook lying diaphragmatic Comments 5 reps today and head and neck supported and pt reports that she is better Sitting Exercises Upper traps MWM with racquet ball today Comments PT demo today and pt to try with sweat shirt on as tolerated at home Standing Exercises Infraspinatus MWM Comments Increased symptoms and so ed pt to work into it Racquet ball STM intrascapular area Comments Right levator and rhomboid area Self-Care/Home Management Treatment Education Other Education Talk with provider about acupuncture, dry needling and PT writes down DO name, benefits of lying supine with cervical support when pain gets bad, use of racquet balls and diaphragm breathing, talk with provider about magnesium for muscle spasms, lots of encouragement today about internal angeles of control, being able to self-massage PT-OP-T Assessment and Plan Start: 07/13/20 14:06 Freq: Status: Active Protocol: Document 07/21/20 10:31 MB (Rec: 07/21/20 11:21 MB [id number]) Physical Therapy Assessment Rehab Potential Rehabilitation Potential Fair Evaluation Complexity Number of Personal Factors/Comorbidities 1-2 Number of Body Systems Impaired 1-2 Clinical Presentation at Evaluation Evolving Impairments Impairments Activity Tolerance,Functional Mobility,Pain,Posture,ROM, Sensation,Soft Tissue Mobility ,Strength Goals 5 Custodial Goal (LTG) Pt will report a 75% improvement in sleeping due to pain to promote restful sleep and recovery by 09/13/2020. LTG Duration 8 weeks 4 Custodial Goal (LTG) Pt will perform progressive HEP with I including flexibility, postural and core strengthening, relaxation and ergonomic and body mechanics training to improve pain, posture and strength by 2019. 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 LTG Duration 8 weeks 2 Manager Cargo Goal (LTG) Pt will present with an improved NDI score of no more than 20% score to reflect decreased pain with functional activities by 09/13/2020. LTG Duration 8 weeks 1 Manager Cargo Goal (LTG) Pt will present with an improved QuickDASH score to reflect no more than 20% impairment to prepare for return to full duty work by . LTG Duration 8 weeks Assessment Summary Assessment Pt is tearful today about pain last night. PT did see pt even though she went to the ED last night because she did not have a new injury and she is seeing doctor after PT appointment today. Positioning , breathing and self-massage decrease her pain today with FACES scale 1/10 at end of treatment. Physical Therapy Plan Frequency and Duration Frequency of Treatment 1x/Week Duration of Treatment 8 weeks Plan of Care Start Date 07/14/20 Plan of Care End Date 09/13/20 Therapeutic Interventions Therapeutic Interventions Balance Training,Canalithic Repositioning,Home Exercise Program,Joint Mobilizations, Manual Therapy,Neuromuscular Re-education,Patient/Caregiver Education,Self-Care/Home Management,Sensory Integration ,Soft Tissue Mobilization, Taping,Therapeutic Activities, Therapeutic Exercises Modalities Cold Pack/Ice Massage,Electric Stimulation,Hot Packs, Ultrasound Other Referrals/Consults Referrals/Consults Recommended Speak with doctor about extending light duty through August to allow PT to assist pt in reducing pain and improving posture, ergonomics and body mechanics Next Visit Focus/Plan Next Note Type Treatment Note Next Visit Plan Con't progression and consider further relaxation exercises and perhaps Counterstrain, initiate discussion about work station/body mechanics
--- NOTE | 2020-07-28 15:30 | PT.OTN ---
Current Diagnoses Pain in right shoulder (07/28/20) Radiculopathy, site unspecified (07/28/20) Cervicalgia (07/28/20) Physical Therapy Treatment Note PT-OP-A Visit Information Start: 07/13/20 14:06 Freq: Status: Active Protocol: Document 07/28/20 14:30 MB (Rec: 07/28/20 15:24 MB [id number]) Out-Patient Physical Therapy Visit Information Visit Information Visit Type Treatment Note Visit Start Time 14:30 Visit Stop Time 15:23 Total Visit Minutes 53 Visit Number 3 PT-OP-B Current Condition Start: 07/13/20 14:06 Freq: Status: Active Protocol: Document 07/14/20 09:45 MB (Rec: 07/14/20 10:02 MB [id number]) Current Condition History of Current Condition Onset Date 2 years ago, progressive Current Complaints Numbness and tingling right hand, biceps area pain with movement/lift History of Current Condition Pt reports 7/10 right biceps pain with reaching, lifting and stretching and pain in side of right neck (mostly posterior) up to 4/10 and numbness and tingling right hand. Pt reports occ headache up the back of the head and into the right baptism. She takes Excedrin Migraine. She gets headaches about 3x/wk. It tends to occur with working in the [employer] and bending her neck with cutting. Pt is right handed. Pt was diagnosed with right biceps tendinits 09/2018. She was given a shot. The shot was helpful. She reports numbness dorsal and palmar middle three fingers of her right hand that is worse when her elbow is bent and at night. She was given muscle relaxor and anti- inflammatory at night and they are not helping. She is sleeping on her sides and back . Pt was put on light duty at work and is not supposed to lift more than 2 lbs. 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 She has had trouble with stocking and working in the [employer]. 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 duty until 08/13/2020. Pt reports a familial history of cervical changes. Pt denies further PMH. Prior Treatments and Tests Cervical spine x-ray 06/15/2020: mod to severe mid and lower cervical degenerative disc disease and facet OA allowing anterolisthesis grade 1 of C3 on C4, C4 on C5, spinal and formainal stenosis would be expected at multiple levels 2018 and 2019 biceps cortisone injections Treatment Goals Patient/Caregiver Goals To get this to go away and to have a normal life. I want to be able to sleep through the night. I want to be able to keep my job. I don't want to have surgery. PT-OP-C Subjective Start: 07/13/20 14:06 Freq: Status: Active Protocol: Document 07/28/20 14:30 MB (Rec: 07/28/20 15:24 MB [id number]) OP-PT Subjective Patient Comments Patient Comments I'm not optomistic. Pt states that she is over it. Her symptoms have moved into her left hand a little bit. She saw Dr. Reyes today and will have orthopedic surgeon consult on 08/25/2020. PT-OP-J Posture/Palpation/Skin Start: 07/13/20 14:06 Freq: Status: Active Protocol: Document 07/14/20 09:45 MB (Rec: 07/14/20 15:51 MB [id number]) Posture Evaluation Comments Posture Comments Standing: Dowager's hump, decreased cervical lordosis, decreased thoracic kyphosis, increased lumbar lordosis, right iliac crest higher than the left. PT-OP-K Range of Motion Start: 07/13/20 14:06 Freq: Status: Active Protocol: Document 07/14/20 09:45 MB (Rec: 07/14/20 15:51 MB [id number]) Cervical Spine Range of Motion Cervical Spine Active Testing Position Standing Flexion 18 Extension 40 Rotation Left 38 Rotation Right 40 Lateral Flexion Left 10 Lateral Flexion Right 20 Comments Pt reports increased numbness and tingling in right arm and hand with cervical flexion ( repeated x5) and cervical rotation Shoulder Goniometric Range of Motion Shoulder Right Shoulder ROM WFL No Testing Position Standing Flexion 90 Abduction 28 Comments Pt reports 7-8/10 lateral proximal right shoulder pain with abdcution efforts Left Shoulder ROM WFL Yes Testing Position Standing PT-OP-M Strength Start: 07/13/20 14:06 Freq: Status: Active Protocol: Document 07/14/20 09:45 MB (Rec: 07/14/20 15:51 MB [id number]) Shoulder Strength Shoulder Manual Muscle Testing Right Comments Deferred all MMT d/t pt response to active movement Left Flexion 5 Normal Abduction (C5) 5 Normal External Rotation 5 Normal Internal Rotation 5 Normal Elbow/Forearm Strength Elbow and Forearm Manual Muscle Testing Right Comments Deferred all MMT d/t pt response to active movement Left Flexion (C6) 5 Normal Extension (C7) 5 Normal Pronation 5 Normal Supination 5 Normal Wrist Strength Wrist Manual Muscle Testing Right Comments Deferred all MMT d/t pt response to active movement Left Flexion (C7) 5 Normal Extension (C6) 4 Good PT-OP-Q Treatments Start: 07/13/20 14:06 Freq: Status: Active Protocol: Document 07/28/20 14:30 MB (Rec: 07/28/20 15:24 MB [id number]) Therapeutic Exercises Sidelying Exercises Open book Comments Demonstrated today B and provided handout Manual Therapy Treatment Other Other Manual Treatments Pt agrees to Counterstrain to assess and treat fascial tension. She denies DM and eye issues. Pt presents with tension in the following fascial systems: spinal vein extension, ALL, LF, sinuvertebral, DPR and vagus nerve. PT treats stacks in the following systems: spinal vein extension thoracic spine, costocartilage. Suboccipital release, positional release right cervical paraspinals and B STM PT-OP-T Assessment and Plan Start: 07/13/20 14:06 Freq: Status: Active Protocol: Document 07/28/20 14:30 MB (Rec: 07/28/20 15:24 MB [id number]) Physical Therapy Assessment Rehab Potential Rehabilitation Potential Fair Evaluation Complexity Number of Personal Factors/Comorbidities 1-2 Number of Body Systems Impaired 1-2 Clinical Presentation at Evaluation Evolving Impairments Impairments Activity Tolerance,Functional Mobility,Pain,Posture,ROM, Sensation,Soft Tissue Mobility ,Strength Goals 5 Employment Trainer Goal (LTG) Pt will report a 75% improvement in sleeping due to pain to promote restful sleep and recovery by 09/13/2020. LTG Duration 8 weeks 4 Employment Trainer Goal (LTG) Pt will perform progressive HEP with I including flexibility, postural and core strengthening, relaxation and ergonomic and body mechanics training to improve pain, posture and strength by 2019. 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 LTG Duration 8 weeks 2 Employment Trainer Goal (LTG) Pt will present with an improved NDI score of no more than 20% score to reflect decreased pain with functional activities by 09/13/2020. LTG Duration 8 weeks 1 [facility] Goal (LTG) Pt will present with an improved QuickDASH score to reflect no more than 20% impairment to prepare for return to full duty work by . LTG Duration 8 weeks Assessment Summary Assessment Pt responds well to Counterstrain today and has no more headache after treatment . Suboccipital and B SCMs release with treatment. Con't treatment and progression as pt tolerates. Physical Therapy Plan Frequency and Duration Frequency of Treatment 1x/Week Duration of Treatment 8 weeks Plan of Care Start Date 07/14/20 Plan of Care End Date 09/13/20 Therapeutic Interventions Therapeutic Interventions Balance Training,Canalithic Repositioning,Home Exercise Program,Joint Mobilizations, Manual Therapy,Neuromuscular Re-education,Patient/Caregiver Education,Self-Care/Home Management,Sensory Integration ,Soft Tissue Mobilization, Taping,Therapeutic Activities, Therapeutic Exercises Modalities Cold Pack/Ice Massage,Electric Stimulation,Hot Packs, Ultrasound Other Referrals/Consults Referrals/Consults Recommended Speak with doctor about extending light duty through August to allow PT to assist pt in reducing pain and improving posture, ergonomics and body mechanics Next Visit Focus/Plan Next Note Type Treatment Note Next Visit Plan Ongoing manual work as appropriate. Con't progression and consider further relaxation exercises, initiate discussion about work station /body mechanics
--- NOTE | 2020-08-13 14:15 | PT.OTN ---
Current Diagnoses Pain in right shoulder (08/13/20) Radiculopathy, site unspecified (08/13/20) Cervicalgia (08/13/20) Physical Therapy Treatment Note PT-OP-A Visit Information Start: 07/13/20 14:06 Freq: Status: Active Protocol: Document 08/13/20 13:32 MB (Rec: 08/13/20 14:14 MB [id number]) Out-Patient Physical Therapy Visit Information Visit Information Visit Type Treatment Note Visit Start Time 13:32 Visit Stop Time 14:15 Total Visit Minutes 43 Visit Number 4 PT-OP-B Current Condition Start: 07/13/20 14:06 Freq: Status: Active Protocol: Document 07/14/20 09:45 MB (Rec: 07/14/20 10:02 MB [id number]) Current Condition History of Current Condition Onset Date 2 years ago, progressive Current Complaints Numbness and tingling right hand, biceps area pain with movement/lift History of Current Condition Pt reports 7/10 right biceps pain with reaching, lifting and stretching and pain in side of right neck (mostly posterior) up to 4/10 and numbness and tingling right hand. Pt reports occ headache up the back of the head and into the right congregation. She takes Excedrin Migraine. She gets headaches about 3x/wk. It tends to occur with working in the [employer] and bending her neck with cutting. Pt is right handed. Pt was diagnosed with right biceps tendinits 09/2018. She was given a shot. The shot was helpful. She reports numbness dorsal and palmar middle three fingers of her right hand that is worse when her elbow is bent and at night. She was given muscle relaxor and anti- inflammatory at night and they are not helping. She is sleeping on her sides and back . Pt was put on light duty at work and is not supposed to lift more than 2 lbs. 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 She has had trouble with stocking and working in the [employer]. 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 duty until 08/13/2020. Pt reports a familial history of cervical changes. Pt denies further PMH. Prior Treatments and Tests Cervical spine x-ray 06/15/2020: mod to severe mid and lower cervical degenerative disc disease and facet OA allowing anterolisthesis grade 1 of C3 on C4, C4 on C5, spinal and formainal stenosis would be expected at multiple levels 2018 and 2019 biceps cortisone injections Treatment Goals Patient/Caregiver Goals To get this to go away and to have a normal life. I want to be able to sleep through the night. I want to be able to keep my job. I don't want to have surgery. PT-OP-C Subjective Start: 07/13/20 14:06 Freq: Status: Active Protocol: Document 08/13/20 13:32 MB (Rec: 08/13/20 14:14 MB [id number]) OP-PT Subjective Patient Comments Patient Comments I'm hurting today. Pt reports that she has had increased stress, increased time making sandwiches at work and burning between her shoulder blades. PT-OP-J Posture/Palpation/Skin Start: 07/13/20 14:06 Freq: Status: Active Protocol: Document 07/14/20 09:45 MB (Rec: 07/14/20 15:51 MB [id number]) Posture Evaluation Comments Posture Comments Standing: Dowager's hump, decreased cervical lordosis, decreased thoracic kyphosis, increased lumbar lordosis, right iliac crest higher than the left. PT-OP-K Range of Motion Start: 07/13/20 14:06 Freq: Status: Active Protocol: Document 07/14/20 09:45 MB (Rec: 07/14/20 15:51 MB [id number]) Cervical Spine Range of Motion Cervical Spine Active Testing Position Standing Flexion 18 Extension 40 Rotation Left 38 Rotation Right 40 Lateral Flexion Left 10 Lateral Flexion Right 20 Comments Pt reports increased numbness and tingling in right arm and hand with cervical flexion ( repeated x5) and cervical rotation Shoulder Goniometric Range of Motion Shoulder Right Shoulder ROM WFL No Testing Position Standing Flexion 90 Abduction 28 Comments Pt reports 7-8/10 lateral proximal right shoulder pain with abdcution efforts Left Shoulder ROM WFL Yes Testing Position Standing PT-OP-M Strength Start: 07/13/20 14:06 Freq: Status: Active Protocol: Document 07/14/20 09:45 MB (Rec: 07/14/20 15:51 MB [id number]) Shoulder Strength Shoulder Manual Muscle Testing Right Comments Deferred all MMT d/t pt response to active movement Left Flexion 5 Normal Abduction (C5) 5 Normal External Rotation 5 Normal Internal Rotation 5 Normal Elbow/Forearm Strength Elbow and Forearm Manual Muscle Testing Right Comments Deferred all MMT d/t pt response to active movement Left Flexion (C6) 5 Normal Extension (C7) 5 Normal Pronation 5 Normal Supination 5 Normal Wrist Strength Wrist Manual Muscle Testing Right Comments Deferred all MMT d/t pt response to active movement Left Flexion (C7) 5 Normal Extension (C6) 4 Good PT-OP-Q Treatments Start: 07/13/20 14:06 Freq: Status: Active Protocol: Document 08/13/20 13:32 MB (Rec: 08/13/20 14:14 MB [id number]) Manual Therapy Treatment Other Other Manual Treatments Pt supine: first rib isometric left, suboccipital release, B MWM upper traps Pt prone: PA mobs thoracic spine grade III, rib recoil B and B scapular mobs, STM with therapy cream intrascapular area, upper traps and middle scalenes B PT-OP-T Assessment and Plan Start: 07/13/20 14:06 Freq: Status: Active Protocol: Document 08/13/20 13:32 MB (Rec: 08/13/20 14:14 MB [id number]) Physical Therapy Assessment Rehab Potential Rehabilitation Potential Fair Evaluation Complexity Number of Personal Factors/Comorbidities 1-2 Number of Body Systems Impaired 1-2 Clinical Presentation at Evaluation Evolving Impairments Impairments Activity Tolerance,Functional Mobility,Pain,Posture,ROM, Sensation,Soft Tissue Mobility ,Strength Goals 5 Fci Goal (LTG) Pt will report a 75% improvement in sleeping due to pain to promote restful sleep and recovery by 09/13/2020. LTG Duration 8 weeks 4 [employer] Goal (LTG) Pt will perform progressive HEP with I including flexibility, postural and core strengthening, relaxation and ergonomic and body mechanics training to improve pain, posture and strength by 2019. 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 LTG Duration 8 weeks 2 Fci Goal (LTG) Pt will present with an improved NDI score of no more than 20% score to reflect decreased pain with functional activities by 09/13/2020. LTG Duration 8 weeks 1 [facility]ci Goal (LTG) Pt will present with an improved QuickDASH score to reflect no more than 20% impairment to prepare for return to full duty work by . LTG Duration 8 weeks Assessment Summary Assessment Pt has been unable to participate with PT for 15 days d/t work schedule. She presents with increased B upper traps and left first rib tension on arrival and presents with improved tension after treatment. Con't manual work and start strengthening for intrascapular muscles to help postural load for neck as soon as she can tolerate. Physical Therapy Plan Frequency and Duration Frequency of Treatment 1x/Week Duration of Treatment 8 weeks Plan of Care Start Date 07/14/20 Plan of Care End Date 09/13/20 Therapeutic Interventions Therapeutic Interventions Balance Training,Canalithic Repositioning,Home Exercise Program,Joint Mobilizations, Manual Therapy,Neuromuscular Re-education,Patient/Caregiver Education,Self-Care/Home Management,Sensory Integration ,Soft Tissue Mobilization, Taping,Therapeutic Activities, Therapeutic Exercises Modalities Cold Pack/Ice Massage,Electric Stimulation,Hot Packs, Ultrasound Other Referrals/Consults Referrals/Consults Recommended Speak with doctor about extending light duty through August to allow PT to assist pt in reducing pain and improving posture, ergonomics and body mechanics Next Visit Focus/Plan Next Note Type Treatment Note Next Visit Plan Consider standing thread the needle and band intrascapular and shoulder ER strengthening. Ongoing manual work as appropriate. Con't progression and consider further relaxation exercises, initiate discussion about work station /body mechanics
--- NOTE | 2020-08-18 11:28 | PT.OTN ---
Current Diagnoses Pain in right shoulder (08/18/20) Radiculopathy, site unspecified (08/18/20) Cervicalgia (08/18/20) Physical Therapy Treatment Note PT-OP-A Visit Information Start: 07/13/20 14:06 Freq: Status: Active Protocol: Document 08/18/20 10:32 MB (Rec: 08/18/20 11:16 MB [id number]) Out-Patient Physical Therapy Visit Information Visit Information Visit Type Treatment Note Visit Start Time 10:32 Visit Stop Time 11:15 Total Visit Minutes 43 Visit Number 5 PT-OP-B Current Condition Start: 07/13/20 14:06 Freq: Status: Active Protocol: Document 07/14/20 09:45 MB (Rec: 07/14/20 10:02 MB [id number]) Current Condition History of Current Condition Onset Date 2 years ago, progressive Current Complaints Numbness and tingling right hand, biceps area pain with movement/lift History of Current Condition Pt reports 7/10 right biceps pain with reaching, lifting and stretching and pain in side of right neck (mostly posterior) up to 4/10 and numbness and tingling right hand. Pt reports occ headache up the back of the head and into the right methodist. She takes Excedrin Migraine. She gets headaches about 3x/wk. It tends to occur with working in the [employer] and bending her neck with cutting. Pt is right handed. Pt was diagnosed with right biceps tendinits 09/2018. She was given a shot. The shot was helpful. She reports numbness dorsal and palmar middle three fingers of her right hand that is worse when her elbow is bent and at night. She was given muscle relaxor and anti- inflammatory at night and they are not helping. She is sleeping on her sides and back . Pt was put on light duty at work and is not supposed to lift more than 2 lbs. 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 She has had trouble with stocking and working in the [employer]. 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 duty until 08/13/2020. Pt reports a familial history of cervical changes. Pt denies further PMH. Prior Treatments and Tests Cervical spine x-ray 06/15/2020: mod to severe mid and lower cervical degenerative disc disease and facet OA allowing anterolisthesis grade 1 of C3 on C4, C4 on C5, spinal and formainal stenosis would be expected at multiple levels 2018 and 2019 biceps cortisone injections Treatment Goals Patient/Caregiver Goals To get this to go away and to have a normal life. I want to be able to sleep through the night. I want to be able to keep my job. I don't want to have surgery. PT-OP-C Subjective Start: 07/13/20 14:06 Freq: Status: Active Protocol: Document 08/18/20 10:32 MB (Rec: 08/18/20 11:16 MB [id number]) OP-PT Subjective Patient Comments Patient Comments I wasn't expecting this. Pt hands PT out of work order that her provider gave her for 08/16/2020 to 08/26/2020. She sees orthopedic surgeon on 09/2020. Pt states that she is stressed about being out of work d/t her 's job is laying off employees and they are low staffed at her job. PT-OP-J Posture/Palpation/Skin Start: 07/13/20 14:06 Freq: Status: Active Protocol: Document 07/14/20 09:45 MB (Rec: 07/14/20 15:51 MB [id number]) Posture Evaluation Comments Posture Comments Standing: Dowager's hump, decreased cervical lordosis, decreased thoracic kyphosis, increased lumbar lordosis, right iliac crest higher than the left. PT-OP-K Range of Motion Start: 07/13/20 14:06 Freq: Status: Active Protocol: Document 07/14/20 09:45 MB (Rec: 07/14/20 15:51 MB [id number]) Cervical Spine Range of Motion Cervical Spine Active Testing Position Standing Flexion 18 Extension 40 Rotation Left 38 Rotation Right 40 Lateral Flexion Left 10 Lateral Flexion Right 20 Comments Pt reports increased numbness and tingling in right arm and hand with cervical flexion ( repeated x5) and cervical rotation Shoulder Goniometric Range of Motion Shoulder Right Shoulder ROM WFL No Testing Position Standing Flexion 90 Abduction 28 Comments Pt reports 7-8/10 lateral proximal right shoulder pain with abdcution efforts Left Shoulder ROM WFL Yes Testing Position Standing PT-OP-M Strength Start: 07/13/20 14:06 Freq: Status: Active Protocol: Document 07/14/20 09:45 MB (Rec: 09/30/20 15:51 MB [id number]) Shoulder Strength Shoulder Manual Muscle Testing Right Comments Deferred all MMT d/t pt response to active movement Left Flexion 5 Normal Abduction (C5) 5 Normal External Rotation 5 Normal Internal Rotation 5 Normal Elbow/Forearm Strength Elbow and Forearm Manual Muscle Testing Right Comments Deferred all MMT d/t pt response to active movement Left Flexion (C6) 5 Normal Extension (C7) 5 Normal Pronation 5 Normal Supination 5 Normal Wrist Strength Wrist Manual Muscle Testing Right Comments Deferred all MMT d/t pt response to active movement Left Flexion (C7) 5 Normal Extension (C6) 4 Good PT-OP-Q Treatments Start: 07/13/20 14:06 Freq: Status: Active Protocol: Document 08/18/20 10:32 MB (Rec: 08/18/20 11:16 MB [id number]) Therapeutic Exercises Supine Exercises Buteyko reduced breathing 3 Comments Diaphragm breathing and pt is able to perform x2 with holding 13-15 sec Buteyko reduced breathing 2 Comments Pt cannot perform as her nostril sticks shut and she does not like ex Buteyko breathing Supine Exercise Name Exercise 1 Reps/Minutes Explanation, trials, then 5 reps Comments HR and O2 at rest: 79 BPM and 98%; after first rep, O2 sats 98% and HR 67 Self-Care/Home Management Treatment Education Other Education Education with pt today about benefits of 2x/wk therapy while she is no working these two weeks. Ed pt to con't to try not to worry about work and to take care of herself with things that relax her including PT exercises. PT-OP-T Assessment and Plan Start: 07/13/20 14:06 Freq: Status: Active Protocol: Document 08/18/20 10:32 MB (Rec: 08/18/20 11:16 MB [id number]) Physical Therapy Assessment Rehab Potential Rehabilitation Potential Fair Evaluation Complexity Number of Personal Factors/Comorbidities 1-2 Number of Body Systems Impaired 1-2 Clinical Presentation at Evaluation Evolving Impairments Impairments Activity Tolerance,Functional Mobility,Pain,Posture,ROM, Sensation,Soft Tissue Mobility ,Strength Goals 5 [facility] Goal (LTG) Pt will report a 75% improvement in sleeping due to pain to promote restful sleep and recovery by 10/14/2020. LTG Duration 8 weeks 4 [facility] Goal (LTG) Pt will perform progressive HEP with I including flexibility, postural and core strengthening, relaxation and ergonomic and body mechanics training to improve pain, posture and strength by 2019. 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 08/18/2020: deferred testing today in preference of teaching relaxation exercises LTG Duration 8 weeks 2 Senior Hr Generalist Goal (LTG) Pt will present with an improved NDI score of no more than 20% score to reflect decreased pain with functional activities by 10/14/2020. 08/18/2020: deferred testing today in preference of teaching relaxation exercises LTG Duration 8 weeks 1 Senior Hr Generalist Goal (LTG) Pt will present with an improved QuickDASH score to reflect no more than 20% impairment to prepare for return to full duty work by . 08/18/2020: deferred testing today in preference of teaching relaxation exercises LTG Duration 8 weeks Assessment Summary Assessment Initiated relaxation exercises today and pt performs Buteyko breathing exercises 1 and 2 with cues. Her HR decreases and her O2 sats increase with reps and she is able to increase hold time with exercise 1 over reps: 12 sec, 15 sec, 30 sec and 35 sec. Pt has been written out of work for two weeks and so she can participate in PT twice a week while she is not working. Pt will benefit from PT twice a week to progress exercises and manual work. Will con't 2x/wk as long as pt is able with regard to her schedule. Con't relaxation exercises, manual work and start strengthening for intrascapular muscles to help postural load for neck as soon as she can tolerate. Physical Therapy Plan Frequency and Duration Frequency of Treatment 2x/Week Duration of Treatment 8 weeks Plan of Care Start Date 08/18/20 Plan of Care End Date 10/14/20 Therapeutic Interventions Therapeutic Interventions Balance Training,Canalithic Repositioning,Home Exercise Program,Joint Mobilizations, Manual Therapy,Neuromuscular Re-education,Patient/Caregiver Education,Self-Care/Home Management,Sensory Integration ,Soft Tissue Mobilization, Taping,Therapeutic Activities, Therapeutic Exercises Modalities Cold Pack/Ice Massage,Electric Stimulation,Hot Packs, Ultrasound Next Visit Focus/Plan Next Note Type Treatment Note Next Visit Plan Consider standing thread the needle and band intrascapular and shoulder ER strengthening. Ongoing manual work as appropriate. Con't progression and consider further relaxation exercises, initiate discussion about work station /body mechanics
--- NOTE | 2020-08-18 11:28 | PT.OPPOC ---
Physical, Occupational & Speech Therapy At [facility] Current Diagnoses Pain in right shoulder (08/18/20) Radiculopathy, site unspecified (08/18/20) Cervicalgia (08/18/20) Visit Care Team Role Provider Type JACEY Patrick Attending Provider Advanced Hvac Service Technician Family Provider Primary Care Provider Referring Provider Specialty: Family Practice Address: [address] [place] [address], [facility] [place], [facility] Email: Plan Of Care PT-OP-T Assessment and Plan Start: 07/13/20 14:06 Freq: Status: Active Protocol: Document 08/18/20 10:32 MB (Rec: 08/18/20 11:16 MB [id number]) Physical Therapy Assessment Rehab Potential Rehabilitation Potential Fair Evaluation Complexity Number of Personal Factors/Comorbidities 1-2 Number of Body Systems Impaired 1-2 Clinical Presentation at Evaluation Evolving Impairments Impairments Activity Tolerance,Functional Mobility,Pain,Posture,ROM, Sensation,Soft Tissue Mobility ,Strength Goals 5 Skilled Nursing Goal (LTG) Pt will report a 75% improvement in sleeping due to pain to promote restful sleep and recovery by 10/14/2020. LTG Duration 8 weeks 4 Religious Education Director Goal (LTG) Pt will perform progressive HEP with I including flexibility, postural and core strengthening, relaxation and ergonomic and body mechanics training to improve pain, posture and strength by 2019. 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 08/18/2020: deferred testing today in preference of teaching relaxation exercises LTG Duration 8 weeks 2 Skilled Nursing Goal (LTG) Pt will present with an improved NDI score of no more than 20% score to reflect decreased pain with functional activities by 10/14/2020. 08/18/2020: deferred testing today in preference of teaching relaxation exercises LTG Duration 8 weeks 1 Religious Education Director Goal (LTG) Pt will present with an improved QuickDASH score to reflect no more than 20% impairment to prepare for return to full duty work by . 08/18/2020: deferred testing today in preference of teaching relaxation exercises LTG Duration 8 weeks Assessment Summary Assessment Initiated relaxation exercises today and pt performs Buteyko breathing exercises 1 and 2 with cues. Her HR decreases and her O2 sats increase with reps and she is able to increase hold time with exercise 1 over reps: 12 sec, 15 sec, 30 sec and 35 sec. Pt has been written out of work for two weeks and so she can participate in PT twice a week while she is not working. Pt will benefit from PT twice a week to progress exercises and manual work. Will con't 2x/wk as long as pt is able with regard to her schedule. Con't relaxation exercises, manual work and start strengthening for intrascapular muscles to help postural load for neck as soon as she can tolerate. Physical Therapy Plan Frequency and Duration Frequency of Treatment 2x/Week Duration of Treatment 8 weeks Plan of Care Start Date 08/18/20 Plan of Care End Date 10/14/20 Therapeutic Interventions Therapeutic Interventions Balance Training,Canalithic Repositioning,Home Exercise Program,Joint Mobilizations, Manual Therapy,Neuromuscular Re-education,Patient/Caregiver Education,Self-Care/Home Management,Sensory Integration ,Soft Tissue Mobilization, Taping,Therapeutic Activities, Therapeutic Exercises Modalities Cold Pack/Ice Massage,Electric Stimulation,Hot Packs, Ultrasound Next Visit Focus/Plan Next Note Type Treatment Note Next Visit Plan Consider standing thread the needle and band intrascapular and shoulder ER strengthening. Ongoing manual work as appropriate. Con't progression and consider further relaxation exercises, initiate discussion about work station /body mechanics Plan of Care Dates Plan of Care Start Date 08/18/20 Plan of Care End Date 10/14/20 Electronically Signed by: Tami Good, PAULO 08/18/20 [id number] Please Sign and Return: I have reviewed this Plan of Care and certify that the skilled therapy services above are required to meet the patient?s needs. Physician Signature Date Printed Name and Credentials Clinical Instructor Signature Printed Name and Credentials
--- NOTE | 2020-08-20 11:19 | PT.OTN ---
Current Diagnoses Pain in right shoulder (08/20/20) Radiculopathy, site unspecified (08/20/20) Cervicalgia (08/20/20) Physical Therapy Treatment Note PT-OP-A Visit Information Start: 07/13/20 14:06 Freq: Status: Active Protocol: Document 08/20/20 10:34 MB (Rec: 08/20/20 11:17 MB [id number]) Out-Patient Physical Therapy Visit Information Visit Information Visit Type Treatment Note Visit Start Time 10:34 Visit Stop Time 11:15 Total Visit Minutes 41 Visit Number 6 PT-OP-B Current Condition Start: 07/13/20 14:06 Freq: Status: Active Protocol: Document 07/14/20 09:45 MB (Rec: 07/14/20 10:02 MB [id number]) Current Condition History of Current Condition Onset Date 2 years ago, progressive Current Complaints Numbness and tingling right hand, biceps area pain with movement/lift History of Current Condition Pt reports 7/10 right biceps pain with reaching, lifting and stretching and pain in side of right neck (mostly posterior) up to 4/10 and numbness and tingling right hand. Pt reports occ headache up the back of the head and into the right sikhism. She takes Excedrin Migraine. She gets headaches about 3x/wk. It tends to occur with working in the [employer] and bending her neck with cutting. Pt is right handed. Pt was diagnosed with right biceps tendinits 09/2018. She was given a shot. The shot was helpful. She reports numbness dorsal and palmar middle three fingers of her right hand that is worse when her elbow is bent and at night. She was given muscle relaxor and anti- inflammatory at night and they are not helping. She is sleeping on her sides and back . Pt was put on light duty at work and is not supposed to lift more than 2 lbs. 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 She has had trouble with stocking and working in the [employer]. 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 duty until 08/13/2020. Pt reports a familial history of cervical changes. Pt denies further PMH. Prior Treatments and Tests Cervical spine x-ray 06/15/2020: mod to severe mid and lower cervical degenerative disc disease and facet OA allowing anterolisthesis grade 1 of C3 on C4, C4 on C5, spinal and formainal stenosis would be expected at multiple levels 2018 and 2019 biceps cortisone injections Treatment Goals Patient/Caregiver Goals To get this to go away and to have a normal life. I want to be able to sleep through the night. I want to be able to keep my job. I don't want to have surgery. PT-OP-C Subjective Start: 07/13/20 14:06 Freq: Status: Active Protocol: Document 08/20/20 10:34 MB (Rec: 08/20/20 11:17 MB [id number]) OP-PT Subjective Patient Comments Patient Comments The breathing exercises really helped because my got laid off on Sunday. Pt with increased stress at this time with her situation and her 's. PT-OP-J Posture/Palpation/Skin Start: 07/13/20 14:06 Freq: Status: Active Protocol: Document 07/14/20 09:45 MB (Rec: 07/14/20 15:51 MB [id number]) Posture Evaluation Comments Posture Comments Standing: Dowager's hump, decreased cervical lordosis, decreased thoracic kyphosis, increased lumbar lordosis, right iliac crest higher than the left. PT-OP-K Range of Motion Start: 07/13/20 14:06 Freq: Status: Active Protocol: Document 07/14/20 09:45 MB (Rec: 07/14/20 15:51 MB [id number]) Cervical Spine Range of Motion Cervical Spine Active Testing Position Standing Flexion 18 Extension 40 Rotation Left 38 Rotation Right 40 Lateral Flexion Left 10 Lateral Flexion Right 20 Comments Pt reports increased numbness and tingling in right arm and hand with cervical flexion ( repeated x5) and cervical rotation Shoulder Goniometric Range of Motion Shoulder Right Shoulder ROM WFL No Testing Position Standing Flexion 90 Abduction 28 Comments Pt reports 7-8/10 lateral proximal right shoulder pain with abdcution efforts Left Shoulder ROM WFL Yes Testing Position Standing PT-OP-M Strength Start: 07/13/20 14:06 Freq: Status: Active Protocol: Document 07/14/20 09:45 MB (Rec: 07/14/20 15:51 MB [id number]) Shoulder Strength Shoulder Manual Muscle Testing Right Comments Deferred all MMT d/t pt response to active movement Left Flexion 5 Normal Abduction (C5) 5 Normal External Rotation 5 Normal Internal Rotation 5 Normal Elbow/Forearm Strength Elbow and Forearm Manual Muscle Testing Right Comments Deferred all MMT d/t pt response to active movement Left Flexion (C6) 5 Normal Extension (C7) 5 Normal Pronation 5 Normal Supination 5 Normal Wrist Strength Wrist Manual Muscle Testing Right Comments Deferred all MMT d/t pt response to active movement Left Flexion (C7) 5 Normal Extension (C6) 4 Good PT-OP-Q Treatments Start: 07/13/20 14:06 Freq: Status: Active Protocol: Document 08/20/20 10:34 MB (Rec: 08/20/20 11:17 MB [id number]) Manual Therapy Treatment Other Other Manual Treatments Pt agrees to Counterstrain to assess and treat fascial tension. She presents with tension in the following fascial systems: vagus nerve and ALL. PT treats stacks in the following systems: vagus starting proximally and moving down to most distal points. Suboccipital release after Counterstrain. PT-OP-T Assessment and Plan Start: 07/13/20 14:06 Freq: Status: Active Protocol: Document 08/20/20 10:34 MB (Rec: 08/20/20 11:17 MB [id number]) Physical Therapy Assessment Rehab Potential Rehabilitation Potential Fair Evaluation Complexity Number of Personal Factors/Comorbidities 1-2 Number of Body Systems Impaired 1-2 Clinical Presentation at Evaluation Evolving Impairments Impairments Activity Tolerance,Functional Mobility,Pain,Posture,ROM, Sensation,Soft Tissue Mobility ,Strength Goals 5 Forensic Investigator Goal (LTG) Pt will report a 75% improvement in sleeping due to pain to promote restful sleep and recovery by 10/14/2020. LTG Duration 8 weeks 4 Longterm Goal (LTG) Pt will perform progressive HEP with I including flexibility, postural and core strengthening, relaxation and ergonomic and body mechanics training to improve pain, posture and strength by 2019. 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 08/18/2020: deferred testing today in preference of teaching relaxation exercises LTG Duration 8 weeks 2 Longterm Goal (LTG) Pt will present with an improved NDI score of no more than 20% score to reflect decreased pain with functional activities by 10/14/2020. 08/18/2020: deferred testing today in preference of teaching relaxation exercises LTG Duration 8 weeks 1 Forensic Investigator Goal (LTG) Pt will present with an improved QuickDASH score to reflect no more than 20% impairment to prepare for return to full duty work by . 08/18/2020: deferred testing today in preference of teaching relaxation exercises LTG Duration 8 weeks Assessment Summary Assessment Pt with increased sympathetic response d/t many life stressors. She responds well to Counterstrain that did address vagus nerve and she has better affect after treatment and her pain is better. Physical Therapy Plan Frequency and Duration Frequency of Treatment 2x/Week Duration of Treatment 8 weeks Plan of Care Start Date 08/18/20 Plan of Care End Date 10/14/20 Therapeutic Interventions Therapeutic Interventions Balance Training,Canalithic Repositioning,Home Exercise Program,Joint Mobilizations, Manual Therapy,Neuromuscular Re-education,Patient/Caregiver Education,Self-Care/Home Management,Sensory Integration ,Soft Tissue Mobilization, Taping,Therapeutic Activities, Therapeutic Exercises Modalities Cold Pack/Ice Massage,Electric Stimulation,Hot Packs, Ultrasound Next Visit Focus/Plan Next Note Type Treatment Note Next Visit Plan Consider standing thread the needle and band intrascapular and shoulder ER strengthening. Ongoing manual work as appropriate. Con't progression and consider further relaxation exercises, initiate discussion about work station /body mechanics
--- NOTE | 2020-08-26 14:09 | PT.OPDS ---
Addendum entered and electronically signed by Tami Good PT 08/26/20 14:10: Send to Ana Reyes Original Note: Current Diagnoses Pain in right shoulder (08/20/20) Radiculopathy, site unspecified (08/20/20) Cervicalgia (08/20/20) Visit Care Team Role Provider Type JACEY Patrick Attending Provider Advanced Platform Stapler Family Provider Primary Care Provider Referring Provider Specialty: Family Practice Address: [address] [place] [address], [facility] [place], [place], [facility] Email: [email or web address] Visit Number Visit Number 6 Discharge Summary PT-OP-B Current Condition Start: 07/13/20 14:06 Freq: Status: Active Protocol: Document 07/14/20 09:45 MB (Rec: 07/14/20 10:02 MB [id number]) Current Condition History of Current Condition Onset Date 2 years ago, progressive Current Complaints Numbness and tingling right hand, biceps area pain with movement/lift History of Current Condition Pt reports 7/10 right biceps pain with reaching, lifting and stretching and pain in side of right neck (mostly posterior) up to 4/10 and numbness and tingling right hand. Pt reports occ headache up the back of the head and into the right druze. She takes Excedrin Migraine. She gets headaches about 3x/wk. It tends to occur with working in the [employer] and bending her neck with cutting. Pt is right handed. Pt was diagnosed with right biceps tendinits 09/2018. She was given a shot. The shot was helpful. She reports numbness dorsal and palmar middle three fingers of her right hand that is worse when her elbow is bent and at night. She was given muscle relaxor and anti- inflammatory at night and they are not helping. She is sleeping on her sides and back . Pt was put on light duty at work and is not supposed to lift more than 2 lbs. 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 She has had trouble with stocking and working in the [employer]. 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 duty until 08/13/2020. Pt reports a familial history of cervical changes. Pt denies further PMH. Prior Treatments and Tests Cervical spine x-ray 06/15/2020: mod to severe mid and lower cervical degenerative disc disease and facet OA allowing anterolisthesis grade 1 of C3 on C4, C4 on C5, spinal and formainal stenosis would be expected at multiple levels 2018 and 2019 biceps cortisone injections Treatment Goals Patient/Caregiver Goals To get this to go away and to have a normal life. I want to be able to sleep through the night. I want to be able to keep my job. I don't want to have surgery. PT-OP-C Subjective Start: 07/13/20 14:06 Freq: Status: Active Protocol: Document 08/20/20 10:34 MB (Rec: 08/20/20 11:17 MB [id number]) OP-PT Subjective Patient Comments Patient Comments The breathing exercises really helped because my got laid off on Sunday. Pt with increased stress at this time with her situation and her 's. PT-OP-J Posture/Palpation/Skin Start: 07/13/20 14:06 Freq: Status: Active Protocol: Document 07/14/20 09:45 MB (Rec: 07/14/20 15:51 MB [id number]) Posture Evaluation Comments Posture Comments Standing: Dowager's hump, decreased cervical lordosis, decreased thoracic kyphosis, increased lumbar lordosis, right iliac crest higher than the left. PT-OP-K Range of Motion Start: 07/13/20 14:06 Freq: Status: Active Protocol: Document 07/14/20 09:45 MB (Rec: 07/14/20 15:51 MB [id number]) Cervical Spine Range of Motion Cervical Spine Active Testing Position Standing Flexion 18 Extension 40 Rotation Left 38 Rotation Right 40 Lateral Flexion Left 10 Lateral Flexion Right 20 Comments Pt reports increased numbness and tingling in right arm and hand with cervical flexion ( repeated x5) and cervical rotation Shoulder Goniometric Range of Motion Shoulder Right Shoulder ROM WFL No Testing Position Standing Flexion 90 Abduction 28 Comments Pt reports 7-8/10 lateral proximal right shoulder pain with abdcution efforts Left Shoulder ROM WFL Yes Testing Position Standing PT-OP-M Strength Start: 07/13/20 14:06 Freq: Status: Active Protocol: Document 07/14/20 09:45 MB (Rec: 07/14/20 15:51 MB [id number]) Shoulder Strength Shoulder Manual Muscle Testing Right Comments Deferred all MMT d/t pt response to active movement Left Flexion 5 Normal Abduction (C5) 5 Normal External Rotation 5 Normal Internal Rotation 5 Normal Elbow/Forearm Strength Elbow and Forearm Manual Muscle Testing Right Comments Deferred all MMT d/t pt response to active movement Left Flexion (C6) 5 Normal Extension (C7) 5 Normal Pronation 5 Normal Supination 5 Normal Wrist Strength Wrist Manual Muscle Testing Right Comments Deferred all MMT d/t pt response to active movement Left Flexion (C7) 5 Normal Extension (C6) 4 Good PT-OP-T Assessment and Plan Start: 07/13/20 14:06 Freq: Status: Active Protocol: Document 08/26/20 14:07 MB (Rec: 08/26/20 14:09 MB [id number]) Physical Therapy Plan Discharge Physical Therapy Discharge Reasons Patient Request Discharge Comments Pt had orthopedic surgeon visit and emailed PT stating that she is to have two MRIs and is written out of work until Sep 17. She was told to stop PT at this time and cancelled all PT appointments. Will d/c PT.
== END 2020-08-27 12:19 ==
LOC: PHYS 10:30
PROVIDERS: Family Provider Internal Medicine; PCP Internal Medicine; Referring Provider Internal Medicine; Visit Provider Internal Medicine
DX: M25.511 Pain in right shoulder (principal); M54.10 Radiculopathy, site unspecified; M54.2 Cervicalgia
CPT/HCPCS: 97110; 97140; 97162; 97535

== ENCOUNTER → 2020-12-03 16:32 | Outpatient (CLI) | payer OTHER, SELFPAY ==
--- NOTE | 2020-12-03 16:35 | DI.MRI.S_ITS ---
PROCEDURE: MR THORACIC SPINE WO CON INDICATIONS: RADICULOPATHY, THORACIC REGION TECHNIQUE: Noncontrast sagittal T1 spine echo and T2 fast spin echo, sagittal STIR, axial T1 and T2 fast spin echo through the thoracic spine. COMPARISON: None. FINDINGS: Image quality: Excellent. Alignment and Curvature: There is normal bony alignment. Bone Marrow: Marrow is of normal overall signal. No acute vertebral body compression fractures. Spinal Cord: Visualized spinal cord is normal in size and signal. Paraspinous Soft Tissues: No paravertebral masses. Miscellaneous: At the T6-T7 level, there is focal moderate disc space narrowing seen, with a mild central disc protrusion. No significant neural foraminal or central canal narrowing can be seen. There is mild disc space narrowing seen at T7-T8 and T8-T9, without neural foraminal narrowing or central canal narrowing seen at these levels. At the L2-L3 level, there is minimal retrolisthesis seen, with moderate disc bulge and mild central canal narrowing. [id number] neural foraminal narrowing can be seen at this level. IMPRESSION: Degenerative changes are seen, which are most prominent at T6-T7 and at L2-L3. Dictated by: Nicholas Dudley M.D. on 12/03/2020 at 17:21 Approved by: Nicholas Dudley M.D. on 12/03/2020 at 17:24
== END ==
PROVIDERS: Family Provider Internal Medicine; PCP Internal Medicine; Referring Provider Physical Medicine & Rehabilitation; Visit Provider Physical Medicine & Rehabilitation
DX: M47.24 Other spondylosis with radiculopathy, thoracic region (principal); M47.26 Other spondylosis with radiculopathy, lumbar region
CPT/HCPCS: 72146

== ENCOUNTER → 2021-08-12 11:17 | Outpatient (CLI) | payer OTHER, SELFPAY ==
--- NOTE | 2021-08-12 11:19 | DI.MG.S_ITS ---
BILATERAL DIGITAL SCREENING MAMMOGRAM 3D/2D WITH CAD: 08/12/2021 CLINICAL: Routine screening. Comparison is made to exams dated: 08/11/2020 mammogram, 08/06/2019 mammogram, 08/05/2018 mammogram, 08/02/2017 mammogram, 07/31/2016 mammogram, and 07/28/2015 mammogram - [facility]. The tissue of both breasts is heterogeneously dense. This may lower the sensitivity of mammography. Current study was also evaluated with a Computer Aided Detection (CAD) system. No significant masses, calcifications, or other findings are seen in either breast. There has been no significant interval change. IMPRESSION: NEGATIVE There is no mammographic evidence of malignancy. A 1 year screening mammogram is recommended. This exam was interpreted at Station ID: [id number]. NOTE: For mammograms, a report in lay terms will be sent to the patient. Approximately 15% of breast malignancies will not be visualized mammographically. In the management of a palpable breast mass, a negative mammogram must not discourage biopsy of a clinically suspicious lesion. Electronically Signed By: Herminio sagastume/mgehan:08/12/2021 12:44:51 letter sent: Normal Exam ACR BI-RADS Category 1: Negative [id number]
== END ==
PROVIDERS: Family Provider Internal Medicine; PCP Internal Medicine; Referring Provider Internal Medicine; Visit Provider Internal Medicine
DX: Z12.31 Encounter for screening mammogram for malignant neoplasm of breast (principal)
CPT/HCPCS: 77063; 77067

== ENCOUNTER → 2021-08-23 08:11 | Outpatient (CLI) | payer OTHER, SELFPAY ==
--- NOTE | 2021-08-23 08:12 | DI.RAD.S_ITS ---
PROCEDURE: XR FOOT RT MIN 3V INDICATIONS: RIGHT foot pain, tearing sensation, swelling TECHNIQUE: 3 views of the foot were acquired. COMPARISON: [facility], , FOOT 3V LEFT, 02/21/2013, 9:26. FINDINGS: Bones: No fractures or dislocations. Bipartite medial sesamoid of 1st metatarsal head is seen. Mild 1st MTP joint osteoarthritic changes are noted. Osteoarthritic changes also seen at talonavicular joint. No suspicious bony lesions. Soft tissues: No tibiotalar joint effusion. Achilles tendon appears normal. IMPRESSION: No gross acute right foot fracture or dislocation. Osteoarthritis in midfoot and forefoot joint as above. No gross soft tissue abnormality is noted. Dictated by: Tony Singer M.D. on 08/23/2021 at 8:24 Approved by: Tony Singer M.D. on 08/23/2021 at 8:25
== END ==
PROVIDERS: Family Provider Internal Medicine; PCP Internal Medicine; Referring Provider Physician Assistant; Visit Provider Physician Assistant
DX: M79.671 Pain in right foot (principal); M19.071 Primary osteoarthritis, right ankle and foot
CPT/HCPCS: 73630

== ENCOUNTER 2021-11-02 19:49 | Observation (INO) | payer OTHER, SELFPAY ==
[2021-11-02 19:58] VITALS: BP 132/80; PULSE 85; RESP 16; TEMP 36.8; O2SAT 100
[2021-11-02 20:16] LABS: Add Manual Diff / Slide Review NO; Basophils Absolute Auto 100 /uL (0-100); Basophils Percent Auto 0.7 % (0-2); Eosinophils Absolute Auto 200 /uL (0-450); Eosinophils Percent Auto 2.8 % (2-4); Hematocrit 35.8 % (36-46); Hemoglobin 12.5 g/dL (12.0-16.0); Lymphocytes Absolute Auto 2000 /uL (1100-4500); Lymphocytes Percent Auto 26.2 % (25-40); Mean Corpuscular HGB Conc 34.8 % (30-36); Mean Corpuscular Hemoglobin 31.1 PG (26-34); Mean Corpuscular Volume 89.4 fL (80-100); Monocytes Absolute Auto 500 /uL (0-900); Monocytes Percent Auto 6.5 % (3-14); Neutrophils Absolute Auto 4900 /uL (1500-7000); Neutrophils Percent Auto 63.8 % (50-75); Platelet Count 284 X10^3/uL (150-400); White Blood Cell Count 7.7 X10^3/uL (4.5-11.0)
[2021-11-02 20:30] LABS: Alanine Aminotransferase 57 IU/L (<35); Albumin 4.1 g/dL (3.5-5.0); Albumin Globulin Ratio 1.5 (1.0-2.8); Alkaline Phosphatase 91 U/L (38-126); Aspartate Aminotransferase 116 IU/L (14-36); Bilirubin Total 0.8 mg/dL (0.2-1.3); Blood Urea Nitrogen 16 mg/dL (7-17); Calcium 9.7 mg/dL (8.4-10.2); Carbon Dioxide 31 mmol/L (22-32); Chloride 103 mmol/L (98-107); Estimated Glomerular Filt Rate > 60.0 mL/min (>60); Globulin 2.7 g/dL (1.7-4.1); Glucose 103 mg/dL (70-100); HEMOLYSIS < 15 (0-50); Lipase 36 U/L (23-300); Potassium 3.3 mmol/L (3.4-5.1); Sodium 136 mmol/L (137-145); Total Protein 6.8 g/dL (6.3-8.2)
--- NOTE | 2021-11-02 21:27 | ED_ITS ---
HPI - Abdominal Pain General Chief Complaint: Abdominal Pain Stated Complaint: stomach pains Time Seen by Provider: 11/02/21 21:25 Source: patient Mode of arrival: Ambulatory History of Present Illness HPI narrative: Patient is female who presents with sudden onset of epigastric pain. She said it started right around 2:30pm. She felt nauseous and like she was going to pass out but never did pass out. He has not vomited. Pain has progressively gotten worse. She denies any fever chills or body aches. She did have 1-2 episodes of diarrhea. She denies any lower abdominal cramping. No prior abdominal surgeries Related Data Home Medications Medication Instructions Recorded Confirmed atorvastatin 10 mg tablet (Lipitor) 10 mg PO HS #0 09/20/17 11/03/21 hydroxyzine pamoate 50 mg capsule 50 mg PO BID PRN cap 04/04/18 11/03/21 topiramate 25 mg capsule,extended 25 mg PO DAILY 09/29/18 11/03/21 release 24 hr estradiol 0.5 mg tablet 0.5 mg PO DAILY 07/08/20 11/03/21 melatonin 5 mg tablet 10 mg PO BEDTIME PRN 07/08/20 11/03/21 progesterone micronized 100 mg 100 mg PO QAM 07/08/20 11/03/21 capsule trazodone 100 mg tablet 50 mg PO BEDTIME PRN 11/03/21 11/03/21 Previous Rx's Medication Instructions Recorded methocarbamol 750 mg tablet 1,500 mg PO BEDTIME #30 tab 10/17/18 diazepam 5 mg tablet (Valium) 5 mg PO BEDTIME PRN #7 tab 07/20/20 Allergies Allergy/AdvReac Type Severity Reaction Status Date / Time No Known Drug Allergies Allergy Verified 07/20/20 18:15 Review of Systems Review of Systems Narrative: GENERAL: Denies chills, fatigue, malaise, fever, sweats, travel HEENT: Denies sinus pain, ear pain, sore throat, difficulty swallowing, neck pain RESPIRATORY: Denies dyspnea, cough, wheezing, hemoptysis, sputum. CARDIOVASCULAR: Denies chest pain, palpitations, orthopnea, edema GASTROINTESTINAL: see HPI : Denies dysuria, frequency, incontinence, hematuria, urinary retention, flank pain. MUSCULOSKELETAL: Denies weakness, joint pain, or bony pain SKIN: No rash, no erythema, no pruritus NEUROLOGIC: Denies weakness, dizziness, headache, numbness, change in speech, confusion PSYCHIATRIC: No concerning psychosocial issues. 12 point review of systems is negative except for those stated above and HPI Patient History Medical History (Updated 11/03/21 @ 00:07 by Maria E Truong DO) Major depressive disorder, recurrent, moderate Salicylate overdose Family History Mother No problems noted. Social History marital status: number of children: 2 household members: spouse housing: house occupational status: employed Smoking Status: Former smoker Smoking Status: Former smoker alcohol intake frequency: holidays/special occasions only Substance Use Type: does not use Exam Initial Vital Signs Initial Vital Signs: Vital Signs Temperature 98.2 F 11/02/21 19:58 Pulse Rate 85 11/02/21 19:58 Respiratory Rate 16 11/02/21 19:58 Blood Pressure 132/80 11/02/21 19:58 Pulse Oximetry 100 11/02/21 19:58 GENERAL: Alert well-appearing 51-year-old female and in no acute distress. HEENT: Head atraumatic,EOMI, pupils reactive, face symmetric, moist mucous membranes CARDIOVASCULAR: Regular rate and rhythm without murmurs, rubs or gallops. RESPIRATORY: Breath sounds equal bilaterally, no wheezes rales or rhonchi. ABDOMEN: Soft, epigastric tenderness positive Garrido sign no guarding or rebound no lower abdominal pain : No CVA tenderness EXTREMITIES: Normal range of motion, no clubbing or edema. Neurovascularly intact NEUROLOGICAL: Alert and oriented x4.Normal gait and speech. SKIN: Warm, dry, no laceration, no petechiae, no rashes or lesions. Course Orders Ordered: ED Orders 11/02/21 19:58 EKG-12 Lead Stat 11/02/21 20:05 Complete Blood Count AUTO DIFF Stat Comprehensive Metabolic Panel Stat Lipase Stat 11/02/21 21:35 US abdomen limited Stat Lactated Ringer's (Lactated Ringers) 1,000 mls @ 100 mls/hr IV CONT OLI Last Admin: 11/03/21 02:19 Dose: 100 mls/hr Documented by: JENIFER Ketorolac Tromethamine (Ketorolac 30 Mg/Ml Vial) 15 mg IV Q6H PRN PRN Reason: Pain, Moderate (4-6) Stop: 11/08/21 02:02 Ondansetron HCl (Ondansetron 4 Mg/2 Ml Inj) 4 mg IV Q6HR PRN PRN Reason: Nausea And Vomiting Trazodone HCl (Trazodone 50 Mg Tablet) 50 mg PO BEDTIME PRN PRN Reason: Sleep Discontinued Medications Ketorolac Tromethamine (Ketorolac 30 Mg/Ml Vial) 15 mg IV NOW ONE Stop: 11/02/21 21:36 Last Admin: 11/02/21 21:42 Dose: 15 mg Documented by: SARAH Ondansetron HCl (Ondansetron 4 Mg/2 Ml Inj) 4 mg IV NOW ONE Stop: 11/02/21 21:36 Last Admin: 11/02/21 21:42 Dose: 4 mg Documented by: SARAH Vital Signs Vital signs: Vital Signs - 8 hr 11/02/21 19:58 Temperature 98.2 F Pulse Rate 85 Respiratory Rate 16 Blood Pressure 132/80 Pulse Oximetry 100 MDM - Abdominal Pain Lab Data Result diagrams: 11/02/21 20:05 11/02/21 20:05 Labs: Lab Results 11/02/21 11/02/21 Range/Units 20:05 20:05 WBC 7.7 (4.5-11.0) X10^3/uL RBC 4.00 (4.0-5.2) X10^6/uL Hgb 12.5 (12.0-16.0) g/dL Hct 35.8 L (36-46) % MCV 89.4 (80-100) fL MCH 31.1 (26-34) PG MCHC 34.8 (30-36) % RDW 14.0 (11.6-14.8) % Plt Count 284 (150-400) X10^3/uL Neut % (Auto) 63.8 (50-75) % Lymph % (Auto) 26.2 (25-40) % Mathews % (Auto) 6.5 (3-14) % Eos % (Auto) 2.8 (2-4) % Baso % (Auto) 0.7 (0-2) % Neut # (Auto) 4900 (1552-6069) /uL Lymph # (Auto) 2000 (8479-9802) /uL Mathews # (Auto) 500 (0-900) /uL Eos # (Auto) 200 (0-450) /uL Baso # (Auto) 100 (0-100) /uL Sodium 136 L (137-145) mmol/L Potassium 3.3 L (3.4-5.1) mmol/L Chloride 103 (98-107) mmol/L Carbon Dioxide 31 (22-32) mmol/L BUN 16 (7-17) mg/dL Creatinine 0.64 (0.52-1.04) mg/dL Estimated GFR > 60.0 (>60) mL/min BUN/Creatinine Ratio 25.0 H (6-22) Glucose 103 H (70-100) mg/dL Calcium 9.7 (8.4-10.2) mg/dL Total Bilirubin 0.8 (0.2-1.3) mg/dL AST 116 H (14-36) IU/L ALT 57 H (<35) IU/L Alkaline Phosphatase 91 (38-126) U/L Total Protein 6.8 (6.3-8.2) g/dL Albumin 4.1 (3.5-5.0) g/dL Globulin 2.7 (1.7-4.1) g/dL Albumin/Globulin Ratio 1.5 (1.0-2.8) Lipase 36 (23-300) U/L Imaging Data US - abdomen: Radiologist's Impression: PROCEDURE:? US ABDOMEN LIMITED ? INDICATIONS:? RUQ ? TECHNIQUE:? Real-time scanning was performed of the abdominal and retroperitoneal organs, with image documentation.? ? COMPARISON:? [facility], , US ABDOMEN COMPLETE, 11/18/2018, 8:58. ? FINDINGS:? ? Liver:? Liver is normal in size and homogeneous in echotexture.? ? Gallbladder:? Multiple small stones are seen in dependent portion of gallbladder lumen with through acoustic shadowing and measures up to 6 mm in size.? There is no gallbladder wall thickening or pericholecystic fluid.? Positive sonographic Garrido sign is noted. ? Biliary ducts:? Intrahepatic bile ducts are non-dilated.? Extrahepatic bile duct caliber measures 12.3 mm.? Normal is 6-7 mm or less in diameter, or 10 mm or less post-cholecystectomy.? ? Pancreas:? Visualized portions of the pancreas are sonographically normal.? ? IMPRESSION:? 1. Cholelithiasis with positive sonographic Garrido sign consistent with acute cholecystitis. 2. No intrahepatic biliary ductal dilatation.? Prominence of common bile duct measures up to 1.2 cm in diameter.? No gross choledocholithiasis is identified. ? ? Dictated by: Tony Singer M.D. on 11/02/2021 at 22:37 ? ? ECG Data Interpretation: Normal sinus rhythm rate 69 CA interval 140 QRS [address] changes no T- wave inversions MDM Narrative Medical decision making narrative: The patient's pain is significantly improved after Toradol. Liver enzymes are elevated with out elevation of bilirubin or lipase. Ultrasound confirms cholelithiasis with out acute cholecystitis. Dr. Franco updated on patient's symptoms test results and happily accepts. Discharge Plan Departure Patient Disposition: Admitted as Observation Clinical Impression: Cholelithiasis Admit Date/Time: 11/03/21 00:40 Admit Provider: Isaura Franco
--- NOTE | 2021-11-02 21:35 | DI.US.S_ITS ---
PROCEDURE: US ABDOMEN LIMITED INDICATIONS: RUQ TECHNIQUE: Real-time scanning was performed of the abdominal and retroperitoneal organs, with image documentation. COMPARISON: [facility], [place], US ABDOMEN COMPLETE, 11/18/2018, 8:58. FINDINGS: Liver: Liver is normal in size and homogeneous in echotexture. Gallbladder: Multiple small stones are seen in dependent portion of gallbladder lumen with through acoustic shadowing and measures up to 6 mm in size. There is no gallbladder wall thickening or pericholecystic fluid. Positive sonographic Garrido sign is noted. Biliary ducts: Intrahepatic bile ducts are non-dilated. Extrahepatic bile duct caliber measures 12.3 mm. Normal is 6-7 mm or less in diameter, or 10 mm or less post-cholecystectomy. Pancreas: Visualized portions of the pancreas are sonographically normal. IMPRESSION: 1. Cholelithiasis with positive sonographic Garrido sign consistent with acute cholecystitis. 2. No intrahepatic biliary ductal dilatation. Prominence of common bile duct measures up to 1.2 cm in diameter. No gross choledocholithiasis is identified. Dictated by: Tony Singer M.D. on 11/02/2021 at 22:37 Approved by: Tony Singer M.D. on 11/02/2021 at 22:39
[2021-11-02] MEDS: KETOROLAC 30 MG/ML VIAL 15 MG IV (21:42)
[2021-11-02] MEDS: ONDANSETRON 4 MG/2 ML INJ IV (21:42)
[2021-11-03] VITALS (17 sets, daily range): BP systolic 98–133; BP diastolic 59–81; PULSE 63–104; RESP 12–18; TEMP 36.1–37.1; O2SAT 97–100; BMI 26.0; BMI 25.4
--- NOTE | 2021-11-03 | PATH_ITS ---
[facility] Accession Number: [id number] . 01 Material submitted: . gallbladder - GALLBLADDER . 02 Diagnosis: Gallbladder, Cholecystectomy: Chronic cholecystitis, cholesterolosis, and cholelithiasis. MRV 11/07/2021 1103 Local . 02 Electronically signed: . Ave Casarez MD, Pathologist NPI- [id number] . 01 Gross description: . Received in formalin, labeled with the patient's name and additionally labeled gallbladder is a gallbladder specimen measuring 5.8 x 3.0 x 2.0 cm. The serosal surface is green-szymanski smooth and glistening. The liver bed surface is brown-green and shaggy. The cystic duct margin is inked blue. The specimen is opened through the cystic duct margin revealing dozens of yellow bosselated calculi and calculi fragments ranging in size from less than 1.0 mm up to 7.0 mm in greatest dimension. Several small calculi are seen lodged proximal to the tortuous cystic duct. The gallbladder mucosa is dark brown to green and velvety with sawant cholesterolosis. The gallbladder wall averages 2.0 mm in thickness. No masses or lesions are identified. [employer] sections, including the cystic duct margin, are submitted in cassette A1. ([id number]) /MRV 11/04/2021 1346 Local . 02 Pathologist provided ICD-10: K81.1, K80.60 . 02 CPT . [id number] Performed at: [facility] [address] [id number] MD Alan Winston MD Phone: [phone] Performed at: 02 [facility] [place] [address] [place], [place] [id number] MD Alondra Singleton MD Phone: [phone]
[2021-11-03 01:09] LABS: COVID19 -Nasal RAPID Negative (Negative)
[2021-11-03] MEDS: LACTATED RINGERS 1,000 ML 100 ML IV ×4 (02:19→16:22)
[2021-11-03 05:50] LABS: Pregnancy Test Urine Negative (Negative)
--- NOTE | 2021-11-03 06:43 | PC.ADMIT ---
[email or web address] Admission Note: Patient admitted to AC unit at 0050, alert and oriented x 4, hard of hearing. Oriented to room and call light. Independent in room. Denies pain/nausea/ diarrhea. NPO. LR running @ 100/hr. Urine specimen sent to lab. Bed in low position and brakes are locked. The patient,Geri Hoskins,51 y/o, was given written information regarding hospital policies, unit procedures and contact persons. Patient's smoking status: Former smoker. Vital Signs - 8 hr 11/03/21 01:09 11/03/21 06:21 Temperature 97.3 F L 98.8 F Pulse Rate 71 78 Respiratory Rate 18 18 Blood Pressure 115/69 103/68 Pulse Oximetry 99 98
--- NOTE | 2021-11-03 07:52 | P.HP_ITS ---
History of Present Illness History of Present Illness Date Patient Seen: 11/03/21 Time Patient Seen: 07:52 Date of Onset of Symptoms: 11/02/21 Chief complaint: stomach pains Narrative: Was at work and began having 10/10 pain in the RUQ. Nausea, no emesis. Previous episodes of a much milder, and shorter variety. Pain now resolved. Patient History Medical History Major depressive disorder, recurrent, moderate Salicylate overdose Family & Social History Family History Mother No problems noted. Social History: household members spouse Prior Living Arrangements House Safety & Behavioral: Feels Safe in Current Yes Environment Been Physically Hurt or No Threatened By a Person Suicidal Ideation Description None Suicide Plan Description No Plan Tobacco & Substance use: Smoking Status Former smoker alcohol intake frequency holiday/special occasion Substance Use Type does not use Meds Home Medications and Allergies Home Medications Medication Instructions Recorded Confirmed Type atorvastatin 10 mg tablet (Lipitor) 10 mg PO HS #0 09/20/17 11/03/21 History hydroxyzine pamoate 50 mg capsule 50 mg PO BID PRN cap 04/04/18 11/03/21 History topiramate 25 mg capsule,extended 25 mg PO DAILY 09/29/18 11/03/21 History release 24 hr methocarbamol 750 mg tablet 1,500 mg PO BEDTIME #30 tab 10/17/18 11/03/21 Rx estradiol 0.5 mg tablet 0.5 mg PO DAILY 07/08/20 11/03/21 History melatonin 5 mg tablet 10 mg PO BEDTIME PRN 07/08/20 11/03/21 History progesterone micronized 100 mg 100 mg PO QAM 07/08/20 11/03/21 History capsule diazepam 5 mg tablet (Valium) 5 mg PO BEDTIME PRN #7 tab 07/20/20 11/03/21 Rx trazodone 100 mg tablet 50 mg PO BEDTIME PRN 11/03/21 11/03/21 History Allergies Allergy/AdvReac Type Severity Reaction Status Date / Time No Known Drug Allergies Allergy Verified 07/20/20 18:15 Review of Systems Review of Systems ROS: Yes All systems reviewed with the patient and are negative except as otherwise documented Exam Vital Signs (past 8 hours): - 11/03/21 01:09 11/03/21 06:21 Temperature 97.3 F L 98.8 F Pulse Rate 71 78 Respiratory Rate 18 18 Blood Pressure 115/69 103/68 Pulse Oximetry 99 98 Oxygen Delivery Method Room Air Oxygen Flow Rate 0 Const General: cooperative and comfortable Nutritional Appearance: average body habitus [facility] [place] Head: normal to inspection, normocephalic and atraumatic Other: nasal congestion no drainage. Eyes Sclera: sclerae normal Neck Neck: trachea midline Chest Chest: normal inspection of the chest Resp Effort & Inspection: normal respiratory effort and able to speak in complete sentences Cardio Rate: regular rate Rhythm: regular rhythm GI Inspection: normal to inspection Palpation: soft Other: non tender Skin General: no rashes or lesions noted and turgor normal Neuro General: patient awake and patient oriented x3 Cognition: normal cognition Extrem General: normal to inspection Psych Appearance: grossly normal Attitude: cooperative Judgment: judgment good Objective Labs Result Diagrams: 11/02/21 20:05 11/02/21 20:05 Labs: Laboratory Results - last 24 hr 11/02/21 11/02/21 11/03/21 20:05 20:05 00:52 WBC 7.7 RBC 4.00 Hgb 12.5 Hct 35.8 L MCV 89.4 MCH 31.1 MCHC 34.8 RDW 14.0 Plt Count 284 Neut % (Auto) 63.8 Lymph % (Auto) 26.2 Richardson % (Auto) 6.5 Eos % (Auto) 2.8 Baso % (Auto) 0.7 Neut # (Auto) 4900 Lymph # (Auto) 2000 Richardson # (Auto) 500 Eos # (Auto) 200 Baso # (Auto) 100 Sodium 136 L Potassium 3.3 L Chloride 103 Carbon Dioxide 31 BUN 16 Creatinine 0.64 Estimated GFR > 60.0 BUN/Creatinine Ratio 25.0 H Glucose 103 H Calcium 9.7 Total Bilirubin 0.8 AST 116 H ALT 57 H Alkaline Phosphatase 91 Total Protein 6.8 Albumin 4.1 Globulin 2.7 Albumin/Globulin Ratio 1.5 Lipase 36 Urine Test SARS-CoV-2 (PCR) Negative 11/03/21 05:35 WBC RBC Hgb Hct MCV MCH MCHC RDW Plt Count Neut % (Auto) Lymph % (Auto) Richardson % (Auto) Eos % (Auto) Baso % (Auto) Neut # (Auto) Lymph # (Auto) Richardson # (Auto) Eos # (Auto) Baso # (Auto) Sodium Potassium Chloride Carbon Dioxide BUN Creatinine Estimated GFR BUN/Creatinine Ratio Glucose Calcium Total Bilirubin AST ALT Alkaline Phosphatase Total Protein Albumin Globulin Albumin/Globulin Ratio Lipase Urine Test Negative SARS-CoV-2 (PCR) Assessment & Plan Assessment & Plan narrative: Acute cholecystitis with gallstones. Plan: Lap hal with IOC if indicated COVID-19 COVID-19 status: Negative Time Spent With Patient Time with patient: 30 to 49 minutes with 50% spent counseling/coordinating care Critical Care time: I spent a total of [] minutes of critical care time on this patient's care today; this time is exclusive of procedural time. Quality VTE Deep Vein Thrombosis/Pulmonary Embolism Present on Admission: No
--- NOTE | 2021-11-03 13:28 | PC.NURSE ---
Pt escorted to OR suite at 1245 IVF HL. Denies any discomfort at this time. Willawait return.
--- NOTE | 2021-11-03 14:36 | PM.PREOP ---
Pre-operative Note COVID-19 COVID-19 status: Negative Result date/Date tested (Pos, Neg/Pending): 11/03/21 Criteria for continued procedure: Expected advancement of disease process and Continuing or worsening of significant or severe pain Interval Note History & Physical reviewed/Exam performed by Physician: Yes Changes to H&P: No ASA Class (for procedural sedation): II
--- NOTE | 2021-11-03 15:00 | DI.RAD.S_ITS ---
PROCEDURE: XR CHOLANGIOGRAM OPERATIVE INDICATIONS: LAPROSCOPIC CHOLISTECTOMY COMPARISON: None. FINDINGS: Biliary ducts: The surgeon injected contrast into the biliary ducts after cannulation of the cystic duct stump. Visualized intra- and extrahepatic bile ducts are normal in caliber, without strictures. No intraluminal filling defects to suggest retained ductal stones or sludge. No evidence for iatrogenic ductal injury. Duodenum: Contrast flows promptly through the sphincter of Oddi into the duodenum, which appears normal in caliber. IMPRESSION: Normal intraoperative cholangiogram. Dictated by: Fina Patterson MD, PhD on 11/03/2021 at 16:01 Approved by: Fina Patterson MD, PhD on 11/03/2021 at 16:21
[2021-11-03] MEDS: CEFAZOLIN 2 GM/20 ML SYRINGE IV (15:15)
--- NOTE | 2021-11-03 15:33 | SUR.OPER ---
Supine on padded OR bed, head on pillow, safety belt at thigh, left arm padded and tucked at side. Right arm secured on padded arm board <90 degrees abduction. Legs uncrossed. Padded footboard in place. Tape over blanket to secure lower legs.
[2021-11-03] MEDS: BUPIVACAINE 0.5% (PF) VIAL 30 ML INJ (15:53)
[2021-11-03] MEDS: LIDOCAINE 1% W/EPI 20 ML INJ (15:53)
[2021-11-03] MEDS: IOPAMIDOL 15 ML VIAL INJ (16:01)
[2021-11-03] MEDS: GLUCAGON,HUMAN RECOMBINANT 1 MG/ML VIAL IV (16:19)
--- NOTE | 2021-11-03 16:36 | CM.DANOTE ---
DCP Assessment: Patient is a 51 yr old female who was admitted for stomach pain and needed a Lap Felicita preformed by Dr. Franco. CM met with patient at the bedside and explained role. patient was alert and oriented x4 at time of visit. Patient lives in [place] with her tee. Patient states she is independent with all ADLS and drives at her baseline. During visit surgical team came to take patient to OR for surgery. CM will follow up with patient again tomorrow if there are any new DC planning needs that arise. I: Healthcare management P: DC home with Tee when medically stable. No identified DC planning needs. 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 No Advance Directives on File No History Provided By Patient,Medical Record Prior Living Arrangements House Household Members spouse Type of transporation used prior to Drives own vehicle admit Independent with ADL's Yes Is patient alert and oriented? Yes Barriers to Discharge No Discharge Plan Home Whiteboard Updated in Patient Room with No name and ext. # of Cuff [employer] Machine Operator Review Status In Process Next Review Type Continued Stay Review
--- NOTE | 2021-11-03 17:41 | PM.OP.1 ---
Operative Date/Time/Diagnoses Date of procedure: 11/03/21 Time of procedure: 17:41 Pre-op diagnosis: Gallstones Post-op diagnosis: other (Gallstones and choledocholithiasis) Procedure & Clinicians Procedure: Laparoscopic cholecystectomy with intraoperative cholangiogram and common bile duct exploration under fluoroscopy Same procedure as scheduled: Yes Indications: Gallstones and common bile duct stones Surgeon: Roscoe Gurein Click Yes if Unassisted: Yes Anesthesia Type: General Operative Notes Findings: Common bile duct obstruction relieved after common bile duct exploration under fluoroscopy Procedure in detail: The patient was given preoperative antibiotic. The patient was brought to the operating room, placed on the table in the supine position. General endotracheal anesthesia was induced. The abdomen was prepped and draped. A time-out was performed. We made a 1 cm infraumbilical incision. We dissected down to the base of the umbilical stalk using cautery. We grasped the umbilical stalk with a Radha clamp to elevate the abdominal wall. We scored the fascia in the midline with cautery 1 cm. We pierced the peritoneum with a Peon clamp. The Yamile port was placed and the abdomen was insufflated to 15 mmHg. A 10 mm 30 degree laparoscopic was inserted. There was no evidence of any injury from the entry. Next, we placed 5 mm ports in the subxiphoid position and right upper quadrant at the midclavicular line and anterior axillary line. Patient was then positioned in reverse Trendelenburg and the table was tilted to the left. The gallbladder was grasped at the dome and retracted cephalad. There were some adhesions of mesenteric tissue to the right liver which were carefully dissected with cautery to allow full retraction of the gallbladder. We then dissected the cystic structures with a combination of hook cautery and blunt dissection. We obtained a critical view. Next, a cholangiogram was performed using the 6 Gibraltarian ureteral catheter. The cystic duct common duct and hepatic duct were well visualized but there was no flow of contrast into the duodenum. 1 mg of glucagon was administered and 5 minutes elapsed with a repeat cholangiogram showing no relief of the obstruction. Using fluoroscopy the ureteral catheter was advanced down to the sphincter avoid eye and gently advanced through the sphincter. We then had good flow of contrast into the duodenum with no obvious filling defects remaining. Presumably some sludge was pushed through and relieved the obstruction. We then placed hemoclips on the cystic duct and artery and divided the cystic duct and artery sharply between the clips. The gallbladder was then dissected off the liver and placed in a specimen retrieval bag. We irrigated the right upper quadrant and all the aspirate returned clear. We then removed the 5 mm ports under direct vision we removed the Yamile port. We then injected some local into the fascia and closed the fascia with 2 interrupted 0 Vicryl sutures. The skin incisions were closed with 4 Monocryl and Steri-Strips were applied. Band-Aids were applied over the Steri-Strips. EBL: 10 mL Specimen: Gallbladder Post-operative Condition: stable Disposition: PACU
[2021-11-03] MEDS: OXYCODONE/ACETAMINOPHEN 5/325 TABLET 1 TAB PO (23:22)
[2021-11-03] MEDS: TRAZODONE 100 MG TABLET 50 MG PO (23:23)
[2021-11-04 01:10] VITALS: BP 115/71; PULSE 91; RESP 18; TEMP 37.1; O2SAT 99
[2021-11-04 06:49] VITALS: BP 116/71; PULSE 80; RESP 12; TEMP 37; O2SAT 100
[2021-11-04 07:45] VITALS: BP 103/61; PULSE 81; RESP 16; TEMP 36.7; O2SAT 97
[2021-11-04 09:17] LABS: Alanine Aminotransferase 524 IU/L (<35); Albumin 3.7 g/dL (3.5-5.0); Albumin Globulin Ratio 1.4 (1.0-2.8); Alkaline Phosphatase 194 U/L (38-126); Aspartate Aminotransferase 598 IU/L (14-36); BUN Creatinine Ratio 20.5 (6-22); Bilirubin Total 3.4 mg/dL (0.2-1.3); Blood Urea Nitrogen 15 mg/dL (7-17); Calcium 8.7 mg/dL (8.4-10.2); Carbon Dioxide 29 mmol/L (22-32); Chloride 103 mmol/L (98-107); Estimated Glomerular Filt Rate > 60.0 mL/min (>60); Globulin 2.6 g/dL (1.7-4.1); Glucose 100 mg/dL (70-100); HEMOLYSIS < 15 (0-50); Potassium 3.9 mmol/L (3.4-5.1); Sodium 138 mmol/L (137-145); Total Protein 6.3 g/dL (6.3-8.2)
[2021-11-04] MEDS: OXYCODONE/ACETAMINOPHEN 5/325 TABLET 1 TAB PO (10:26)
--- NOTE | 2021-11-04 11:51 | P.DS_ITS ---
History of Present Illness History of Present Illness Date Patient Seen: 11/04/21 Time Patient Seen: 11:51 Chief complaint: stomach pains Discharge Providers Provider Date of admission: 11/03/21 00:40 Discharge Date: 11/04/21 Primary care physician: JACEY Patrick Discharge provider: Roscoe Guerin MD Summary Hospital Course Discharge Diagnosis: Gallstones Hospital Course: The patient underwent a laparoscopic cholecystectomy with intraoperative cholangiogram and common bile duct exploration on 11/03/2021. The next day her liver enzymes were slightly elevated but she felt well. She was discharged home with pain pills and instructions to check her labs again in 3 days. Exam Vital Signs (past 8 hours): - 11/04/21 06:49 11/04/21 07:45 Temperature 98.6 F 98.0 F Pulse Rate 80 81 Respiratory Rate 12 16 Blood Pressure 116/71 103/61 Pulse Oximetry 100 97 Oxygen Delivery Method Room Air Oxygen Flow Rate 0 Objective Labs Result Diagrams: 11/02/21 20:05 11/04/21 08:35 Labs: Laboratory Results - last 24 hr 11/04/21 08:35 Sodium 138 Potassium 3.9 Chloride 103 Carbon Dioxide 29 BUN 15 Creatinine 0.73 Estimated GFR > 60.0 BUN/Creatinine Ratio 20.5 Glucose 100 Calcium 8.7 Total Bilirubin 3.4 H AST 598 H ALT 524 H Alkaline Phosphatase 194 H D Total Protein 6.3 Albumin 3.7 Globulin 2.6 Albumin/Globulin Ratio 1.4 [facility] Medical History Major depressive disorder, recurrent, moderate Salicylate overdose Family History Mother No problems noted. Social History marital status: number of children: 2 household members: spouse housing: house occupational status: employed Smoking Status: Former smoker alcohol intake: current Discharge Plan Discharge Plan Patient Disposition: Home Provider Discharge Comment: Have labs drawn on Sunday. No lifting greater than 20 lb for 2 weeks. Okay to remove the outer dressing and shower after 24 hours. Leave the Steri-Strips on until they start to peel off in 1-2 weeks. Discharge orders & Medications Prescriptions: New oxycodone-acetaminophen [Percocet] 5-325 mg tablet 1 tab PO Q8H PRN (Reason: pain) Qty: 10 0RF Continued trazodone 100 mg tablet 50 mg PO BEDTIME PRN (Reason: insomnia) 0RF Follow up/Referrals: Ana Reyes ARNP [Primary Care Provider] - Discharge Data Primary Care Provider: Ana Reyes Attending Provider: Isaura Franco VTE Deep Vein Thrombosis/Pulmonary Embolism Present on Admission: No
--- NOTE | 2021-11-04 12:30 | PC.NURSE ---
Day shift: Pt left unit via WC. Mindy by FARHAD Curry at approx 1225. Spouse in room for teachings and he will be driving Pt home. Paperwork signed and all questions answered. Pt has all personal belongings. scripts sent to Pt's pharmacy electronic. Pt was given her wallet from the safe and paperwork for that is in the chart. All lap site dressings remain CDI. Percocet for pain and worked well. Pt did not want to stay for lunch.
== END 2021-11-04 12:33 | disposition home or self-care (01) ==
LOC: ED 11-03 00:07 → AC 11-03 00:41
PROVIDERS: Surgery; Admitting Provider Surgery; Emergency Provider Emergency Medicine; Family Provider Internal Medicine; PCP Internal Medicine; Referring Provider Emergency Medicine; Visit Provider Surgery
PROC: 0FT44ZZ Resection of Gallbladder, Percutaneous Endoscopic Approach (ICD-10-PCS; CPT 47562; principal; 2021-11-03 13:15)
DX: K80.71 Calculus of gallbladder and bile duct without cholecystitis with obstruction (principal); F33.8 Other recurrent depressive disorders; Z20.822 Contact with and (suspected) exposure to COVID-19
CPT/HCPCS: 47564; 36415; 74300; 76705; 80053; 81025; 83690; 85025; 87086; 87635; 93005; 93010; 96361; 96374; 96375; 99219; 99284; C9803; G0378; J0690; J1100; J1610; J1885; J2250; J2405; J2704; J3010

== ENCOUNTER → 2021-11-07 08:15 | Outpatient (CLI) | payer OTHER, SELFPAY ==
[2021-11-03 00:57] VITALS: BMI 26.0
[2021-11-07 09:02] LABS: Alanine Aminotransferase 503 IU/L (<35); Albumin 3.8 g/dL (3.5-5.0); Albumin Globulin Ratio 1.4 (1.0-2.8); Alkaline Phosphatase 244 U/L (38-126); Aspartate Aminotransferase 297 IU/L (14-36); BUN Creatinine Ratio 18.3 (6-22); Bilirubin Total 1.3 mg/dL (0.2-1.3); Blood Urea Nitrogen 13 mg/dL (7-17); Calcium 9.2 mg/dL (8.4-10.2); Carbon Dioxide 32 mmol/L (22-32); Chloride 106 mmol/L (98-107); Estimated Glomerular Filt Rate > 60.0 mL/min (>60); Globulin 2.7 g/dL (1.7-4.1); Glucose 106 mg/dL (70-100); HEMOLYSIS < 15 (0-50); Potassium 4.1 mmol/L (3.4-5.1); Sodium 140 mmol/L (137-145); Total Protein 6.5 g/dL (6.3-8.2)
== END ==
PROVIDERS: Family Provider Internal Medicine; PCP Internal Medicine; Referring Provider Surgery; Visit Provider Surgery
DX: K80.20 Calculus of gallbladder without cholecystitis without obstruction (principal)
CPT/HCPCS: 36415; 80053

== ENCOUNTER → 2021-11-09 15:05 | Outpatient (CLI) | payer OTHER, SELFPAY ==
[2021-11-03 00:57] VITALS: BMI 26.0
[2021-11-09 15:27] LABS: Add Manual Diff / Slide Review NO; Basophils Absolute Auto 0 /uL (0-100); Basophils Percent Auto 0.7 % (0-2); Eosinophils Absolute Auto 400 /uL (0-450); Eosinophils Percent Auto 5.8 % (2-4); Hematocrit 38.5 % (36-46); Hemoglobin 12.9 g/dL (12.0-16.0); Lymphocytes Absolute Auto 1200 /uL (1100-4500); Lymphocytes Percent Auto 17.5 % (25-40); Mean Corpuscular HGB Conc 33.5 % (30-36); Mean Corpuscular Hemoglobin 30.6 PG (26-34); Mean Corpuscular Volume 91.1 fL (80-100); Monocytes Absolute Auto 500 /uL (0-900); Monocytes Percent Auto 6.6 % (3-14); Neutrophils Absolute Auto 4800 /uL (1500-7000); Neutrophils Percent Auto 69.4 % (50-75); Platelet Count 341 X10^3/uL (150-400); Red Blood Cell Count 4.23 X10^6/uL (4.0-5.2); Red Cell Distribution Width 14.5 % (11.6-14.8); White Blood Cell Count 6.9 X10^3/uL (4.5-11.0)
[2021-11-09 15:45] LABS: Alanine Aminotransferase 421 IU/L (<35); Albumin 4.4 g/dL (3.5-5.0); Albumin Globulin Ratio 1.5 (1.0-2.8); Alkaline Phosphatase 377 U/L (38-126); Aspartate Aminotransferase 151 IU/L (14-36); Bilirubin Total 1.2 mg/dL (0.2-1.3); Blood Urea Nitrogen 16 mg/dL (7-17); Calcium 9.6 mg/dL (8.4-10.2); Carbon Dioxide 29 mmol/L (22-32); Chloride 103 mmol/L (98-107); Estimated Glomerular Filt Rate > 60.0 mL/min (>60); Glucose 111 mg/dL (70-100); HEMOLYSIS < 15 (0-50); Potassium 4.3 mmol/L (3.4-5.1); Sodium 137 mmol/L (137-145); Total Protein 7.4 g/dL (6.3-8.2)
== END ==
PROVIDERS: Surgery; Family Provider Internal Medicine; PCP Internal Medicine; Referring Provider Internal Medicine; Visit Provider Internal Medicine
DX: K80.20 Calculus of gallbladder without cholecystitis without obstruction (principal)
CPT/HCPCS: 36415; 80053; 85025

== ENCOUNTER → 2021-11-18 08:01 | Outpatient (CLI) | payer OTHER, SELFPAY ==
[2021-11-03 00:57] VITALS: BMI 26.0
[2021-11-18 08:26] LABS: Add Manual Diff / Slide Review NO; Basophils Absolute Auto 100 /uL (0-100); Basophils Percent Auto 1.4 % (0-2); Eosinophils Absolute Auto 500 /uL (0-450); Eosinophils Percent Auto 8.6 % (2-4); Hematocrit 38.2 % (36-46); Hemoglobin 12.8 g/dL (12.0-16.0); Lymphocytes Absolute Auto 2300 /uL (1100-4500); Lymphocytes Percent Auto 37.6 % (25-40); Mean Corpuscular HGB Conc 33.5 % (30-36); Mean Corpuscular Hemoglobin 30.4 PG (26-34); Mean Corpuscular Volume 90.6 fL (80-100); Monocytes Absolute Auto 400 /uL (0-900); Monocytes Percent Auto 7.2 % (3-14); Neutrophils Absolute Auto 2800 /uL (1500-7000); Neutrophils Percent Auto 45.2 % (50-75); Platelet Count 357 X10^3/uL (150-400); Red Blood Cell Count 4.21 X10^6/uL (4.0-5.2); Red Cell Distribution Width 13.8 % (11.6-14.8); White Blood Cell Count 6.2 X10^3/uL (4.5-11.0)
[2021-11-18 08:45] LABS: Alanine Aminotransferase 65 IU/L (<35); Albumin Globulin Ratio 1.4 (1.0-2.8); Alkaline Phosphatase 207 U/L (38-126); Aspartate Aminotransferase 30 IU/L (14-36); BUN Creatinine Ratio 39.1 (6-22); Bilirubin Total 0.7 mg/dL (0.2-1.3); Blood Urea Nitrogen 25 mg/dL (7-17); Calcium 9.7 mg/dL (8.4-10.2); Carbon Dioxide 30 mmol/L (22-32); Chloride 107 mmol/L (98-107); Estimated Glomerular Filt Rate > 60.0 mL/min (>60); Globulin 2.8 g/dL (1.7-4.1); Glucose 100 mg/dL (70-100); HEMOLYSIS < 15 (0-50); Potassium 4.8 mmol/L (3.4-5.1); Sodium 139 mmol/L (137-145); Total Protein 6.8 g/dL (6.3-8.2)
== END ==
PROVIDERS: Family Provider Internal Medicine; PCP Internal Medicine; Referring Provider Surgery; Visit Provider Surgery
DX: K80.20 Calculus of gallbladder without cholecystitis without obstruction (principal)
CPT/HCPCS: 36415; 80053; 85025

== ENCOUNTER → 2021-12-07 10:26 | Outpatient (CLI) | payer OTHER, SELFPAY ==
[2021-11-03 00:57] VITALS: BMI 26.0
[2021-12-07 11:23] LABS: COVID19 -Nasal RAPID Negative (Negative)
== END ==
PROVIDERS: Family Provider Internal Medicine; PCP Internal Medicine; Visit Provider Family Medicine Sleep Medicine
DX: Z20.822 Contact with and (suspected) exposure to COVID-19 (principal)
CPT/HCPCS: 87635; C9803

== ENCOUNTER 2021-12-09 13:13 | Day surgery (SDC) | payer OTHER, SELFPAY ==
[2021-11-03 00:57] VITALS: BMI 26.0
--- NOTE | 2021-12-09 12:27 | PM.HP.1 ---
History of Present Illness History of Present Illness Chief complaint: [facility] [place] Narrative: 51 Years Old Female seen today for consideration of a screening colonoscopy. There have been no lower GI symptoms suggesting disease such as change in bowel habits, bleeding, abdominal pain or anemia. There's been no family history of colon cancer or colon polyps. Overall health issues have been stable, including no major cardiac events for at least 6 weeks. Past Medical History: Suicide attempts x 2; 01/2018 Inpatient psych admit, [place]; 02/08/2018 Panic attacks Yeast infection Paronychia, right great toe Metabolic syndrome Elevated liver enzymes Impaired glucose metabolism Hyperlipidemia Biceps tendinitis, right Migraine w/out aura Hormone replacement therapy Depression, major, recurrent, in full remission Generalized anxiety disorder in remission Insomnia Past Surgical History: Tubal Ligation 1995 Ovarian cyst removal 1994 Family History: Father: Stroke, Deafness, Hypertension, Hyperlipidemia, Prostate Cancer (2005) Mother: Suicide at 41 yo; bipolar Siblings: brother d 11/2015, 49yo; Abdominal Aneurysm Social History: Marital Status: - Tee (1963) G4, P2, SAb2; b 1989, John (estranged, meth addict); b 1995, [place] Occupation: [employer] Household occupants: and son Education: 12 years 1 drink per weekend Patient History Medical History Major depressive disorder, recurrent, moderate Salicylate overdose Family & Social History Family History Mother No problems noted. Social History: household members spouse Tobacco & Substance use: Smoking Status Former smoker alcohol intake current alcohol intake frequency holiday/special occasion Substance Use Type does not use Meds Home Medications and Allergies Home Medications Medication Instructions Recorded Confirmed Type trazodone 100 mg tablet 50 mg PO BEDTIME PRN 11/03/21 12/09/21 History Allergies Allergy/AdvReac Type Severity Reaction Status Date / Time No Known Drug Allergies Allergy Verified 12/09/21 13:41 Review of Systems Review of Systems Narrative: All remaining ROS were reviewed and negative except as addressed. Exam Narrative Exam Narrative: GENERAL: Alert and oriented, appearing stated age and in no acute distress. HEENT: Head normocephalic/atraumatic. Extraocular movements intact. LUNGS: Clear to ausculation bilaterally, no wheezes, rhonchi or rales. CV: Normal S1 and S2 with regular rate and rhythm, no audible murmurs, rubs or gallops. ABDOMEN: Soft, non-tender, non-distended, no organomegaly. Positive bowel sounds. EXTREMITIES: No clubbing, cyanosis, or edema. NEURO: Cranial nerves II through XII grossly intact, no focal deficits. PSYCH: Alert and oriented x 3. SKIN: No concerning lesions. Assessment & Plan Assessment & Plan narrative: 1. Screening for colon cancer Plan for colonoscopy. The nature and character of the procedure as well as anticipated results were discussed. The possibility of not completing the procedure was also discussed. Possible complications including aspiration pneumonia, bleeding, perforation and reaction to medications either for sedation or preparation and missed lesions were discussed. Questions were answered and proceeding to the colonoscopy was elected. Informed consent signed. I sincerely appreciate the referral allowing me to participate in this patient's care. Please contact me with any questions or concerns.
--- NOTE | 2021-12-09 12:28 | PM.OP.COLON ---
Operative Date/Time/Diagnoses Date of procedure: 12/09/21 Procedure Notes SCOAP/Timeout: 2:26 p.m. Procedure in detail: ENDOSCOPIST: Estela Aguayo MD Sedation RN: Rafaela Del Rio RN Sedation start time: 2:27 p.m. Sedation end time: 2:48 p.m. PROCEDURE: Colonoscopy INDICATIONS: 1. Screening for colon cancer MEDICATION: Levsin 0.125 mg sublingual, incremental doses of Versed and fentanyl until appropriate level sedation achieved. ASA CLASS: 2 CECAL WITHDRAWAL TIME: 10 minutes COMPLICATIONS: None. EXTENT OF PROCEDURE: Cecum. QUALITY OF PREP: Good with portions of liquid stool. PROCEDURE: Prior to insertion of the colonoscope, a digital rectal examination was accomplished with circumferential palpation of the distal rectal mucosa without significant findings being noted. The high-definition pediatric colonoscope was passed into the rectum in the usual fashion and advanced over to the cecum without difficulty. The ileocecal valve, appendiceal stoma, and medial wall all could be inspected and no abnormalities were seen. ASCENDING COLON: As the colonoscope was withdrawn, care was taken to expose and inspect the haustral folds and no abnormalities were seen. HEPATIC FLEXURE: Normal, no polyps, diverticula or other abnormalities. TRANSVERSE COLON: Normal, no polyps, diverticula or other abnormalities. DESCENDING COLON: Normal, no polyps, diverticula or other abnormalities. SIGMOID COLON: Normal, no polyps, diverticula or other abnormalities. RECTUM: Normal. J maneuver was produced. There was no significant perianal disease. The J maneuver was broken. The remainder of the rectum was inspected and there was no external hemorrhoid disease. The scope was withdrawn. IMPRESSION: 1. Normal colonoscopy PLAN: 1. Repeat colonoscopy in 10 years. The possibility of a missed lesion including a malignancy has been discussed with the patient previously. Potential alarm symptoms have been discussed and should be reported immediately.
[2021-12-09 13:45] VITALS: BP 107/79; PULSE 99; RESP 20; TEMP 36.2; O2SAT 99; BMI 24.8
[2021-12-09] MEDS: LACTATED RINGERS 1,000 ML 200 ML IV (13:48)
[2021-12-09] MEDS: HYOSCYAMINE 0.125 MG TABLET PO (13:50)
[2021-12-09] MEDS: MIDAZOLAM 5 MG/5 ML VIAL IV (14:36)
[2021-12-09] MEDS: fentaNYL 250 MCG/5 ML INJ IV (14:36)
[2021-12-09 14:53] VITALS: BP 99/58; PULSE 85; RESP 15; TEMP 36.9; O2SAT 98
[2021-12-09 14:59] VITALS: BP 110/74; PULSE 88; RESP 16; O2SAT 99
[2021-12-09 15:05] VITALS: BP 109/76; PULSE 98; RESP 14; TEMP 36.6; O2SAT 97
[2021-12-09 15:15] VITALS: BP 114/68; PULSE 78; RESP 18; TEMP 37; O2SAT 97
== END 2021-12-09 15:30 | disposition home or self-care (01) ==
PROVIDERS: Family Provider Internal Medicine; PCP Internal Medicine; Referring Provider Student in an Organized Health Care Education/Training Program; Visit Provider Student in an Organized Health Care Education/Training Program
PROC: 0DJD8ZZ Inspection of Lower Intestinal Tract, Via Natural or Artificial Opening Endoscopic (ICD-10-PCS; CPT 45378; principal; 2021-12-09 14:30)
DX: Z12.11 Encounter for screening for malignant neoplasm of colon (principal)
CPT/HCPCS: 45378; J2250; J3010

== ENCOUNTER → 2022-03-02 09:52 | Outpatient (CLI) | payer OTHER, SELFPAY ==
[2021-11-03 00:57] VITALS: BMI 26.0
--- NOTE | 2022-03-02 | DI.MRI.S_ITS ---
PROCEDURE: MR CERVICAL SPINE WO CON INDICATIONS: spinal stenosis, cervical region TECHNIQUE: Noncontrast sagittal T1 spin echo and T2 fast spin echo, sagittal STIR, foraminal oblique sagittal T2 fast spin echo, and axial gradient echo or T2 fast spin echo through the cervical spine. COMPARISON: [facility], MR, MR CERVICAL SPINE WITHOUT CONTRAST, 09/08/2020, 15:44. FINDINGS: Image quality: This examination is limited by involuntary motion artifact. Alignment and Curvature: Reversal of the normal cervical lordosis is seen, with the apex at the C5 level. There is mild anterolisthesis at C3-C4, with minimal anterolisthesis at C4-C5. Bone Marrow: Marrow demonstrates normal overall signal. Spinal Cord: Visualized spinal cord has normal size and signal. No cerebellar tonsillar herniation. Paraspinous Soft Tissues: No paravertebral masses. Prevertebral soft tissues are normal in thickness. C2-C3: The disc height is well-preserved. Loss of disc signal is seen at this level. A moderate degree of generalized disc osteophyte complex is seen. Minimal central canal narrowing is seen. Stable from the prior study. C3-C4: Mild loss of disc height is seen. Loss of disc signal is seen. A mild degree of generalized disc osteophyte complex is seen. There is mild right-sided and moderate to prominent left-sided facet hypertrophy. There is moderate to severe left-sided and no right-sided neural foraminal narrowing. Mild to moderate central canal narrowing is seen at this level, with minimal mass effect upon the ventral spinal cord. These imaging findings have progressed compared to the prior study. C4-C5: Mild loss of disc height is seen. Loss of disc signal is seen. Moderate generalized disc osteophyte complex is seen. There is a mild central disc protrusion. Mild facet joint hypertrophy is seen. There is moderate left-sided and no significant right-sided neural foraminal narrowing seen. Mild central canal narrowing is seen. These degenerative changes are slightly progressed compared to the prior. C5-C6: Moderate loss of disc height is seen. Loss of disc signal is seen. At least moderate disc osteophyte complex is seen. There is a central disc osteophyte protrusion seen. Uncovertebral joint hypertrophy is seen at this level. Reactive marrow endplate changes are seen which are hypointense on T1-weighted imaging and hyperintense on T2 weighted imaging, which is most consistent with edema (Modic type I changes). Moderate facet joint hypertrophy is seen. There is at least moderate bilateral neural foraminal narrowing seen, right worse than left. Moderate central canal narrowing is seen. There is associated mass effect upon the ventral spinal cord. These imaging findings have progressed compared to the prior study. C6-C7: At least moderate loss of disc height and disc signal can be seen. At least moderate disc osteophyte complex is seen at this level. Mild facet joint hypertrophy is seen. There is at least moderate bilateral neural foraminal narrowing seen. Mild to moderate central canal narrowing is seen. These degenerative changes are minimally progressed compared to 2020. C7-T1: No significant abnormality is seen. IMPRESSION: Multiple levels of cervical spine degenerative change are seen, which are overall worst inferiorly at C5-C6 and C6-C7. There is reversal of the normal cervical lordosis seen, with alignment abnormalities present. The degenerative changes are overall mildly progressed compared to 2020. Dictated by: Nicholas Dudley M.D. on 03/02/2022 at 9:50 Approved by: Nicholas Dudley M.D. on 03/02/2022 at 9:58
== END ==
PROVIDERS: Family Provider Internal Medicine; PCP Internal Medicine; Referring Provider Physical Medicine & Rehabilitation; Visit Provider Physical Medicine & Rehabilitation
DX: M48.02 Spinal stenosis, cervical region (principal); M47.812 Spondylosis without myelopathy or radiculopathy, cervical region
CPT/HCPCS: 72141

== ENCOUNTER → 2022-04-19 12:38 | Outpatient (CLI) | payer OTHER, SELFPAY ==
[2021-11-03 00:57] VITALS: BMI 26.0
--- NOTE | 2022-04-19 12:49 | DI.RAD.S_ITS ---
PROCEDURE: XR KUB INDICATIONS: Asymptomatic microscopic hematuria TECHNIQUE: One view of the abdomen acquired. COMPARISON: None. FINDINGS: Surgical changes and devices: None. Bowel: Bowel gas pattern is normal. Moderate right colonic stool. No obstruction. Soft tissues: No suspicious abdominal calcifications. Visualized solid organ contours appear normal in size. Bones: No suspicious bony lesions. IMPRESSION: No visualized cause of hematuria. Dictated by: Wanda Stephens M.D. on 04/19/2022 at 17:24 Approved by: Wanda Stephens M.D. on 04/19/2022 at 17:25
== END ==
PROVIDERS: Family Provider Internal Medicine; PCP Internal Medicine; Referring Provider Internal Medicine; Visit Provider Internal Medicine
DX: R31.21 Asymptomatic microscopic hematuria (principal); R33.9 Retention of urine, unspecified; R39.15 Urgency of urination
CPT/HCPCS: 74018

== ENCOUNTER → 2022-04-26 06:38 | Outpatient (CLI) | payer OTHER, SELFPAY ==
[2021-11-03 00:57] VITALS: BMI 26.0
--- NOTE | 2022-04-26 | DI.US.S_ITS ---
PROCEDURE: US PELVIC COMPLETE INDICATIONS: Pelvic and perineal pain/microscopic hematuria TECHNIQUE: Real-time scanning was performed of the pelvic organs, with image documentation. Additional endovaginal scanning was necessary due to incomplete visualization of the adnexal and endometrial structures by transabdominal scanning. COMPARISON: None. FINDINGS: Uterus: Uterus is anteverted and normal in size at 7.1 x 4.4 x 2.7 cm. A left anterior subserosal fibroid measures 2.2 x 2.3 x 1.7 cm. A nonspecific subserosal hyperechoic focus measures 0.5 x 0.6 x 0.7 cm that may represent additional small fibroid. The endometrium measures 2 mm combined thickness. Ovaries: The right ovary measures 1.6 x 1.8 x 1.6 cm, with a calculated ovarian volume of 2 cc. The left ovary measures 1.7 x 1.8 x 1.4 cm, with a calculated ovarian volume of 2 cc. A small echogenic focus measuring 0.4 cm is seen within the right ovary that may represent a small calcification or less likely a tiny dermoid tumor. A simple left ovarian cyst measures 1.1 cm, which does not require follow-up based on updated SRU guidelines. Other: No pathologic free abdominal or pelvic fluid. IMPRESSION: 1. No acute sonographic abnormality in the pelvis. 2. Small uterine fibroids. 3. If symptoms persist, further evaluation could be considered with MRI. We strive to produce accurate, complete, and clear reports of imaging services. To assist us in improving patient care, this report was composed using standard report templates and voice recognition software. Therefore, it may contain abnormal punctuation, insertions and/or omissions. Occasional wrong-word or sound-alike substitutions may occur. Though we review the report and make efforts to correct it, we do recommend that the report be read carefully in proper context to recognize any text inaccuracies. Dictated by: Baldo Izquierdo M.D. on 04/26/2022 at 10:55 Approved by: Baldo Izquierdo M.D. on 04/26/2022 at 11:06
== END ==
PROVIDERS: Family Provider Internal Medicine; PCP Internal Medicine; Referring Provider Internal Medicine; Visit Provider Internal Medicine
DX: R10.2 Pelvic and perineal pain (principal); R31.21 Asymptomatic microscopic hematuria; D25.2 Subserosal leiomyoma of uterus
CPT/HCPCS: 76830; 76856

== ENCOUNTER → 2022-08-21 12:42 | Outpatient (CLI) | payer OTHER, SELFPAY ==
[2021-11-03 00:57] VITALS: BMI 26.0
--- NOTE | 2022-08-21 12:45 | DI.MG.S_ITS ---
BILATERAL DIGITAL SCREENING MAMMOGRAM 3D/2D WITH CAD: 08/21/2022 CLINICAL: Routine screening. Comparison is made to exams dated: 08/12/2021 mammogram, 08/11/2020 mammogram, 08/06/2019 mammogram, 08/05/2018 mammogram, and 08/02/2017 mammogram - [facility]. Both breasts are heterogeneously dense, which may obscure small masses (category c / 51-75% glandular tissue). Current study was also evaluated with a Computer Aided Detection (CAD) system. No significant masses, calcifications, or other findings are seen in either breast. There has been no significant interval change. IMPRESSION: NEGATIVE There is no mammographic evidence of malignancy. A 1 year screening mammogram is recommended. Based on the Tyrer Cuzick model (a risk assessment model) the patient's lifetime risk is 9.8% and her 10 year risk is 2.8%. According to the ACR, ACS, and NCCN guidelines, an annual breast MRI exam along with mammogram is recommended if the patient's lifetime risk is 20% or greater. This exam was interpreted at Station ID: [id number]. NOTE: For mammograms, a report in lay terms will be sent to the patient. Approximately 15% of breast malignancies will not be visualized mammographically. In the management of a palpable breast mass, a negative mammogram must not discourage biopsy of a clinically suspicious lesion. Electronically Signed By: Herminio sagastume/meghan:08/21/2022 15:08:53 letter sent: Normal Exam ACR BI-RADS Category 1: Negative 3341F
== END ==
PROVIDERS: Family Provider Internal Medicine; PCP Internal Medicine; Referring Provider Internal Medicine; Visit Provider Internal Medicine
DX: Z12.31 Encounter for screening mammogram for malignant neoplasm of breast (principal)
CPT/HCPCS: 77063; 77067

== ENCOUNTER → 2022-09-13 15:54 | Outpatient (ROUT) | payer OTHER, SELFPAY ==
[2021-11-03 00:57] VITALS: BMI 26.0
[2022-09-13 16:40] LABS: Influenza A - CEPHEID Flu A NEGATIVE (NEGATIVE); Influenza B - CEPHEID Flu B NEGATIVE (NEGATIVE); Respiratory Syncytial Virus Negative (Negative)
[2022-09-13 16:42] LABS: COVID-19 CEPHEID 4-PLEX PCR Negative (Negative)
== END ==
PROVIDERS: Family Provider Internal Medicine; PCP Internal Medicine; Visit Provider Internal Medicine
DX: R05.9 Cough, unspecified (principal); R51.9 Headache, unspecified
CPT/HCPCS: 0241U

== ENCOUNTER → 2023-04-26 18:38 | Outpatient (CLI) | payer OTHER, SELFPAY ==
[2021-11-03 00:57] VITALS: BMI 26.0
--- NOTE | 2023-04-26 18:39 | DI.RAD.S_ITS ---
PROCEDURE: XR KNEE LT 3V INDICATIONS: Pain in proximal tibia after fall TECHNIQUE: 3 views of the knee were acquired. COMPARISON: [facility], CR, XR TIBIA FIBULA LT 2V, 04/26/2023, 18:49. FINDINGS: Bones: No fractures or dislocations. No suspicious bony lesions. Soft tissues: No joint effusion. No suspicious soft tissue calcifications. IMPRESSION: No acute osseous abnormality. Dictated by: Herminio Ojeda M.D. on 04/27/2023 at 8:59 Approved by: Herminio Ojeda M.D. on 04/27/2023 at 8:59
--- NOTE | 2023-04-26 18:39 | DI.RAD.S_ITS ---
PROCEDURE: XR TIBIA FIBULA LT 2V INDICATIONS: Pain in proximal tibia after fall TECHNIQUE: 2 views of the tibia and fibula were acquired. COMPARISON: [facility], CR, XR KNEE LT 3V, 04/26/2023, 18:49. FINDINGS: Bones: No fractures or dislocations. No suspicious bony lesions. Plantar calcaneal spur. Soft tissues: No suspicious soft tissue calcifications or masses. Benign soft tissue calcifications at the gates. IMPRESSION: No acute osseous abnormality. Dictated by: Herminio Ojeda M.D. on 04/27/2023 at 8:57 Approved by: Herminio Ojeda M.D. on 04/27/2023 at 8:58
== END ==
PROVIDERS: Family Provider Internal Medicine; PCP Internal Medicine; Referring Provider Physician Assistant; Visit Provider Physician Assistant
DX: M25.562 Pain in left knee (principal); M79.662 Pain in left lower leg
CPT/HCPCS: 73562; 73590

== ENCOUNTER 2023-06-24 15:41 | Emergency (ER) | payer OTHER, SELFPAY ==
[2021-11-03 00:57] VITALS: BMI 26.0
[2023-06-24 15:45] VITALS: BP 145/92; PULSE 84; RESP 18; TEMP 37.1; O2SAT 100; BMI 29.0
[2023-06-24 16:32] LABS: Appearance Urine UA Cloudy; Color Urine UA Red
[2023-06-24 16:33] LABS: Glucose Urine UA NEGATIVE (Negative); Protein Urine UA 2+ (Negative); Specific Gravity Urine UA >=1.030 (1.000-1.035)
[2023-06-24 16:34] LABS: Bacteria Urine Many (>30); Bilirubin Urine UA Negative (NEGATIVE); Ketones Urine UA TRACE (NEGATIVE); Leukocyte Esterase Urine UA TRACE (NEGATIVE); Nitrite Urine UA POSITIVE (Negative); Occult Blood Urine UA 3+ (Negative); RBC Urine >100/HPF (0-5/HPF); Squamous Epithelial Cell Urine None Seen (0-5/HPF); WBC Urine 1-5/HPF (0-5/HPF)
[2023-06-24 16:36] LABS: Culture Indicated Urine Specimen Cultured
--- NOTE | 2023-06-24 16:53 | ED_ITS ---
HPI - Female Genitourinary General Chief complaint: Urogenital-Female Stated complaint: Backache, Hematuria Time Seen by Provider: 06/24/23 16:01 Source: patient Mode of arrival: Ambulatory History of Present Illness HPI Narrative: Patient is a 53-year-old female without significant past medical history presenting today with sudden onset of back pain and hematuria. She reports that she was feeling fine yesterday today she is home sat down for dinner and did not feel very good. Having some right-sided flank pain radiating to her abdomen. No fever chills nausea or vomiting. She reports that she has no history of nephrolithiasis no painful or frequent urination. Does report gross blood in her urine. Related Data Home Medications Medication Instructions Recorded Confirmed trazodone 100 mg tablet 50 mg PO BEDTIME PRN insomnia 11/03/21 12/09/21 Previous Rx's Medication Instructions Recorded cephalexin 500 mg capsule 500 mg PO BID 7 days #14 caps 06/24/23 hydrocodone 5 mg-acetaminophen 325 1 tab PO Q6H PRN pain #10 tabs 06/24/23 mg tablet ondansetron 4 mg disintegrating 4 mg PO Q6-8H PRN nausea and 06/24/23 tablet vomiting #10 tabs Allergies Allergy/AdvReac Type Severity Reaction Status Date / Time No Known Drug Allergies Allergy Verified 12/09/21 13:41 Review of Systems Review of Systems ROS Unobtainable: All systems reviewed & are unremarkable except as noted in HPI and below Patient History Medical History (Updated 06/24/23 @ 18:50 by Maria E Truong DO) Major depressive disorder, recurrent, moderate Salicylate overdose Family History Mother No problems noted. alcohol intake frequency: holidays/special occasions only Substance Use Type: does not use Exam Initial Vital Signs Initial Vital Signs: Vital Signs Temperature 98.8 F 06/24/23 15:45 Pulse Rate 84 06/24/23 15:45 Respiratory Rate 18 06/24/23 15:45 Blood Pressure 145/92 H 06/24/23 15:45 Pulse Oximetry 100 06/24/23 15:45 Oxygen Delivery Method Room Air 06/24/23 15:45 GEN: Alert well-appearing 53-year-old female HEENT: Head atraumatic,EOMI, pupils reactive, face symmetric, moist mucous membranes CARDIOVASCULAR: Regular rate and rhythm without murmurs, rubs or gallops. RESPIRATORY: Breath sounds equal bilaterally, no wheezes rales or rhonchi. ABDOMEN: Soft, nontender. Normoactive bowel sounds all 4 quadrants. No guarding or rebound. : Right CVA tenderness EXTREMITIES: Normal range of motion, no clubbing or edema. Neurovascularly intact NEUROLOGICAL: Alert and oriented x4. SKIN: Warm, dry, no laceration, no petechiae, no rashes or lesions. Course Orders Ordered: Discontinued Medications Hydrocodone Bitart/Acetaminophen (Hydrocodone/Acet 5/325 Prepack) 1 bottle [facility] [place] SEEINSTR ONE Stop: 06/24/23 19:01 Last Admin: 06/24/23 19:11 Dose: 1 bottle Documented By: ALEXIS Sodium Chloride (Normal Saline 0.9%) 1,000 mls @ 1,000 mls/hr IV BOLUS ONE Stop: 06/24/23 17:43 Last Infusion: 06/24/23 18:52 Dose: 0 mls/hr Documented By: Admin: 06/24/23 17:12 Dose: 1,000 mls/hr Documented By: ALEXIS Ceftriaxone Sodium 1,000 mg/ (Sodium Chloride) 100 mls @ 200 mls/hr IV NOW ONE Stop: 06/24/23 16:45 Last Infusion: 06/24/23 17:52 Dose: 0 mls/hr Documented By: Admin: 06/24/23 17:13 Dose: 200 mls/hr Documented By: ALEXIS Ketorolac Tromethamine (Ketorolac 30 Mg/Ml Vial) 15 mg IV NOW ONE Stop: 06/24/23 17:00 Last Admin: 06/24/23 17:14 Dose: 15 mg Documented By: ALEXIS Ondansetron HCl (Ondansetron 4 Mg Odt Prepack) 1 bottle [facility] [place] SEEINSTR ONE Stop: 06/24/23 19:01 Last Admin: 06/24/23 19:11 Dose: 1 bottle Documented By: ALEXIS Vital Signs Vital signs: Vital Signs - 8 hr 06/24/23 15:45 Temperature 98.8 F Pulse Rate 84 Respiratory Rate 18 Blood Pressure 145/92 H Pulse Oximetry 100 Oxygen Delivery Method Room Air MDM - Female Genitourinary Lab Data 06/24/23 16:14 06/24/23 16:14 Labs: Lab Results 06/24/23 06/24/23 06/24/23 Range/Units 15:45 16:14 16:14 WBC 7.4 (4.5-11.0) X10^3/uL RBC 4.31 (4.0-5.2) X10^6/uL Hgb 13.2 (12.0-16.0) g/dL Hct 38.9 (36-46) % MCV 90.2 (80-100) fL MCH 30.5 (26-34) PG MCHC 33.8 (30-36) % RDW 13.3 (11.6-14.8) % Plt Count 355 (150-400) X10^3/uL Neut % (Auto) 64.8 (50-75) % Lymph % (Auto) 24.0 L (25-40) % [place] % (Auto) 7.2 (3-14) % Eos % (Auto) 2.7 (2-4) % Baso % (Auto) 1.3 (0-2) % Neut # (Auto) 4800 (7949-0303) /uL Lymph # (Auto) 1800 (8664-7644) /uL [place] # (Auto) 500 (0-900) /uL Eos # (Auto) 200 (0-450) /uL Baso # (Auto) 100 (0-100) /uL Sodium 139 (137-145) mmol/L Potassium 3.8 (3.4-5.1) mmol/L Chloride 103 (98-107) mmol/L Carbon Dioxide 28 (22-32) mmol/L BUN 19 H (7-17) mg/dL Creatinine 0.74 (0.52-1.04) mg/dL Estimated GFR > 60 (>60) mL/min BUN/Creatinine Ratio 25.7 H (6-22) Glucose 111 H (70-100) mg/dL Lactate (0.7-2.1) mmol/L Calcium 9.7 (8.4-10.2) mg/dL Total Bilirubin 0.4 (0.2-1.3) mg/dL AST 32 (14-36) IU/L ALT 49 H (<35) IU/L Alkaline Phosphatase 127 H (38-126) U/L Total Protein 7.4 (6.3-8.2) g/dL Albumin 4.3 (3.5-5.0) g/dL Globulin 3.1 (1.7-4.1) g/dL Albumin/Globulin Ratio 1.4 (1.0-2.8) Lipase 44 (23-300) U/L Procalcitonin 0.04 (<0.5) ng/mL Urine Color Red Urine Appearance Cloudy Urine pH 5.0 (4.5-8.0) Ur Specific [place] >=1.030 H (1.000-1.035) Urine Protein 2+ H (Negative) Urine Glucose (UA) Negative (Negative) g/dL Urine Ketones Trace H (NEGATIVE) Urine Occult Blood 3+ H (Negative) Urine Nitrate Positive H (Negative) Urine Bilirubin Negative (NEGATIVE) Urine Urobilinogen 1.0 (0.2) E.U./dL Ur Leukocyte Esterase Trace H (NEGATIVE) Urine RBC >100/hpf H (0-5/HPF) Urine WBC 1-5/hpf (0-5/HPF) Ur Squamous Epith Cells None seen (0-5/HPF) Urine Bacteria Many (>30) H (None) Urine Yeast 5-10/hpf H (None) Ur Culture Indicated? Specimen cultured Micro UA Comment 06/24/23 Range/Units 16:14 WBC (4.5-11.0) X10^3/uL RBC (4.0-5.2) X10^6/uL Hgb (12.0-16.0) g/dL Hct (36-46) % MCV (80-100) fL MCH (26-34) PG MCHC (30-36) % RDW (11.6-14.8) % Plt Count (150-400) X10^3/uL Neut % (Auto) (50-75) % Lymph % (Auto) (25-40) % [place] % (Auto) (3-14) % Eos % (Auto) (2-4) % Baso % (Auto) (0-2) % Neut # (Auto) (5032-4793) /uL Lymph # (Auto) (6864-9594) /uL [place] # (Auto) (0-900) /uL Eos # (Auto) (0-450) /uL Baso # (Auto) (0-100) /uL Sodium (137-145) mmol/L Potassium (3.4-5.1) mmol/L Chloride (98-107) mmol/L Carbon Dioxide (22-32) mmol/L BUN (7-17) mg/dL Creatinine (0.52-1.04) mg/dL Estimated GFR (>60) mL/min BUN/Creatinine Ratio (6-22) Glucose (70-100) mg/dL Lactate 1.0 (0.7-2.1) mmol/L Calcium (8.4-10.2) mg/dL Total Bilirubin (0.2-1.3) mg/dL AST (14-36) IU/L ALT (<35) IU/L Alkaline Phosphatase (38-126) U/L Total Protein (6.3-8.2) g/dL Albumin (3.5-5.0) g/dL Globulin (1.7-4.1) g/dL Albumin/Globulin Ratio (1.0-2.8) Lipase (23-300) U/L Procalcitonin (<0.5) ng/mL Urine Color Urine Appearance Urine pH (4.5-8.0) Ur Specific [place] (1.000-1.035) Urine Protein (Negative) Urine Glucose (UA) (Negative) g/dL Urine Ketones (NEGATIVE) Urine Occult Blood (Negative) Urine Nitrate (Negative) Urine Bilirubin (NEGATIVE) Urine Urobilinogen (0.2) E.U./dL Ur Leukocyte Esterase (NEGATIVE) Urine RBC (0-5/HPF) Urine WBC (0-5/HPF) Ur Squamous Epith Cells (0-5/HPF) Urine Bacteria (None) Urine Yeast (None) Ur Culture Indicated? Micro UA Comment Imaging Data CT scan - abdomen/pelvis: Radiologist's Impression: PROCEDURE:? CT KIDNEY URETER BLADDER (KUB) ? INDICATIONS:? right flank ? TECHNIQUE:? Axial sections were acquired from the lung bases to the pubic symphysis.? Coronal and sagittal reformats were performed.? For radiation dose reduction, the following was used: ?automated exposure control, adjustment of mA and/or kV according to patient size.? ? COMPARISON:? None. ? FINDINGS: ? Lower thorax: The lung bases are clear.? Heart size normal.? No hiatal hernia. ? Liver:? Normal in size and attenuation. No contour deformity present. ? Biliary system:? Cholecystectomy.? No intra or extrahepatic bile duct dilation. ? Pancreas:? Unremarkable without mass or inflammation evident. ? Spleen:? Normal in size and density. ? Adrenals:? Normal morphology and density. ? Reproductive system:? Unremarkable as visualized. ? Urinary system:? Moderate right hydronephrosis annular associated with 3 mm calculus in the proximal right ureter.? 2 mm nonobstructive calculi noted in the right renal collecting system.? Additional 1-2 mm calculus in the left renal collecting system is also nonobstructive.? No left hydronephrosis. ? Gastrointestinal system:? The bowel is unremarkable without evidence of bowel obstruction or inflammation. The stomach appears unremarkable. ? Appendix:? No findings to suggest acute appendicitis. ? Peritoneal spaces:? No mesenteric or retroperitoneal adenopathy.? No free air.? No free fluid.? ? Vasculature:? Aortic atherosclerotic vascular calcification noted without evidence of aneurysm. ? Abdominal wall:? Abdominal wall intact without evidence of ventral or inguinal hernias. ? Musculoskeletal:? Normal bone mineralization.? Degenerative disc disease and arthropathy noted in lower lumbar spine.? No acute fractures.? ? IMPRESSION: ? 1. Moderate right hydronephrosis and hydroureter associated with 3 mm calculus in proximal right ureter ? 2. Additional smaller bilateral nonobstructing renal calculi.? Approved by: Evelio No M.D. on 06/24/2023 at 17:25? [facility] Narrative Medical decision making narrative: Patient 53-year-old female who presents with sudden onset of right-sided flank pain and hematuria. She is found to have nitrates and leukocytes and hematuria. No leukocytosis normal electrolytes no ZULMA. He is given fluids Toradol and Rocephin in the ED. CT confirms 3 mm stone. She is afebrile no evidence of sepsis at this time. Pain is much better after Toradol. Discussed with patient when to return to the ED including fever pain not controlled. Discharge Plan Departure Patient Disposition: Home Clinical Impression: Kidney stones, UTI (urinary tract infection) Instructions: DI for Kidney Infection, DI for Urinary Tract Infection (UTI) Activity Restrictions/Additional Instructions: *You have been diagnosed with kidney stone, UTI *What to do: At this time you will pass the kidney stone. He will also have an infection. Please stay hydrated *Continue to take medications as directed Keflex 500 mg twice a day for 7 days Ibuprofen 600 mg every 6 hours if needed for ionr-oe-iouxxbom pain Zofran 4 mg every 8 hours if needed for nausea or vomiting [place] 1 tablet every 6 hours if needed for severe pain *Follow up with your primary care provider in 2-3 days or call [phone] *Return to ER if you should have increasing pain persistent vomiting [or] any new, worsening or concerning symptoms CONTROLLED SUBSTANCE DISCHARGE (Narcotoic/benzodiazepine/Flexeril/Phenergan) 1. You have been prescribed narcotic medications, it does have acetaminophen/Tylenol/paracetamol in it, DO NOT TAKE MORE THAN 4,00mg in 24 hours of Tylenol. TRAMADOL DOES NOT CONTAIN TYLENOL 2. Please understand that we cannot provide further refills of narcotics, benzodiazepines or controlled substances through the ED and her pain management will need to be through your provider. 3. While on these medications you cannot drive or operate heavy machinery. 4. You cannot sign legal documents or perform any duties such as this. 5. As long as you're taking opiate pain medications he should also be taking a stool softener such as Colace, Dulcolax, MiraLAX or prune juice, to help avoid constipation. Prescriptions: New hydrocodone-acetaminophen 5-325 mg tablet 1 tab PO Q6H PRN (Reason: pain) Qty: 10 0RF cephalexin 500 mg capsule 500 mg PO BID 7 Days Qty: 14 0RF ondansetron 4 mg tablet,disintegrating 4 mg PO Q6-8H PRN (Reason: nausea and vomiting) Qty: 10 0RF No Action trazodone 100 mg tablet 50 mg PO BEDTIME PRN (Reason: insomnia) Referrals: Ana Reyes ARNP [Primary Care Provider] - Stand Alone Forms: Patient Portal/API, Work Release Note
[2023-06-24 16:56] LABS: Add Manual Diff / Slide Review NO; Basophils Absolute Auto 100 /uL (0-100); Basophils Percent Auto 1.3 % (0-2); Eosinophils Absolute Auto 200 /uL (0-450); Eosinophils Percent Auto 2.7 % (2-4); Hematocrit 38.9 % (36-46); Hemoglobin 13.2 g/dL (12.0-16.0); Lymphocytes Absolute Auto 1800 /uL (1100-4500); Mean Corpuscular HGB Conc 33.8 % (30-36); Mean Corpuscular Hemoglobin 30.5 PG (26-34); Mean Corpuscular Volume 90.2 fL (80-100); Monocytes Absolute Auto 500 /uL (0-900); Monocytes Percent Auto 7.2 % (3-14); Neutrophils Absolute Auto 4800 /uL (1500-7000); Neutrophils Percent Auto 64.8 % (50-75); Platelet Count 355 X10^3/uL (150-400); Red Blood Cell Count 4.31 X10^6/uL (4.0-5.2); Red Cell Distribution Width 13.3 % (11.6-14.8); White Blood Cell Count 7.4 X10^3/uL (4.5-11.0)
--- NOTE | 2023-06-24 16:59 | DI.CT.S_ITS ---
PROCEDURE: CT KIDNEY URETER BLADDER (KUB) INDICATIONS: right flank TECHNIQUE: Axial sections were acquired from the lung bases to the pubic symphysis. Coronal and sagittal reformats were performed. For radiation dose reduction, the following was used: automated exposure control, adjustment of mA and/or kV according to patient size. COMPARISON: None. FINDINGS: Lower thorax: The lung bases are clear. Heart size normal. No hiatal hernia. Liver: Normal in size and attenuation. No contour deformity present. Biliary system: Cholecystectomy. No intra or extrahepatic bile duct dilation. Pancreas: Unremarkable without mass or inflammation evident. Spleen: Normal in size and density. Adrenals: Normal morphology and density. Reproductive system: Unremarkable as visualized. Urinary system: Moderate right hydronephrosis annular associated with 3 mm calculus in the proximal right ureter. 2 mm nonobstructive calculi noted in the right renal collecting system. Additional 1-2 mm calculus in the left renal collecting system is also nonobstructive. No left hydronephrosis. Gastrointestinal system: The bowel is unremarkable without evidence of bowel obstruction or inflammation. The stomach appears unremarkable. Appendix: No findings to suggest acute appendicitis. Peritoneal spaces: No mesenteric or retroperitoneal adenopathy. No free air. No free fluid. Vasculature: Aortic atherosclerotic vascular calcification noted without evidence of aneurysm. Abdominal wall: Abdominal wall intact without evidence of ventral or inguinal hernias. Musculoskeletal: Normal bone mineralization. Degenerative disc disease and arthropathy noted in lower lumbar spine. No acute fractures. IMPRESSION: 1. Moderate right hydronephrosis and hydroureter associated with 3 mm calculus in proximal right ureter 2. Additional smaller bilateral nonobstructing renal calculi. Approved by: Evelio No M.D. on 06/24/2023 at 17:25
[2023-06-24 17:00] LABS: Alanine Aminotransferase 49 IU/L (<35); Albumin 4.3 g/dL (3.5-5.0); Albumin Globulin Ratio 1.4 (1.0-2.8); Alkaline Phosphatase 127 U/L (38-126); Aspartate Aminotransferase 32 IU/L (14-36); BUN Creatinine Ratio 25.7 (6-22); Bilirubin Total 0.4 mg/dL (0.2-1.3); Blood Urea Nitrogen 19 mg/dL (7-17); Calcium 9.7 mg/dL (8.4-10.2); Carbon Dioxide 28 mmol/L (22-32); Chloride 103 mmol/L (98-107); Estimated Glomerular Filt Rate > 60 mL/min (>60); Globulin 3.1 g/dL (1.7-4.1); Glucose 111 mg/dL (70-100); HEMOLYSIS < 15 (0-50); Lipase 44 U/L (23-300); Potassium 3.8 mmol/L (3.4-5.1); Sodium 139 mmol/L (137-145); Total Protein 7.4 g/dL (6.3-8.2)
[2023-06-24] MEDS: SODIUM CHLORIDE 0.9% 1,000 ML 1000 ML IV (17:12)
[2023-06-24] MEDS: cefTRIAXone 1,000 MG in SODIUM CHLORIDE 0.9% 100 ML 200 MG IV (17:13)
[2023-06-24] MEDS: KETOROLAC 30 MG/ML VIAL 15 MG IV (17:14)
[2023-06-24 17:17] LABS: Procalcitonin 0.04 ng/mL (<0.5)
[2023-06-24 17:24] VITALS: PULSE 72; RESP 18; O2SAT 99
[2023-06-24 17:30] VITALS: BP 120/75; PULSE 73; O2SAT 98
[2023-06-24 18:00] VITALS: BP 110/57; PULSE 94; O2SAT 98
[2023-06-24 18:30] VITALS: BP 113/80; PULSE 86; O2SAT 98
[2023-06-24 19:00] VITALS: BP 119/80; PULSE 79; O2SAT 94
[2023-06-24] MEDS: HYDROCODONE/ACET 5/325 PREPACK 1 BOTTLE MISC (19:11)
[2023-06-24] MEDS: ONDANSETRON 4 MG ODT PREPACK 1 BOTTLE MISC (19:11)
== END 2023-06-24 19:20 | disposition home or self-care (01) ==
PROVIDERS: Emergency Provider Emergency Medicine; Family Provider Internal Medicine; PCP Internal Medicine
DX: N20.0 Calculus of kidney (principal); N39.0 Urinary tract infection, site not specified; R10.9 Unspecified abdominal pain
CPT/HCPCS: 36415; 74176; 80053; 81001; 83605; 83690; 84145; 85025; 87040; 87086; 96365; 96375; 99284; J0696; J1885

== ENCOUNTER → 2023-08-09 07:41 | Outpatient (CLI) | payer OTHER, SELFPAY ==
[2021-11-03 00:57] VITALS: BMI 26.0
--- NOTE | 2023-08-09 | DI.MG.S_ITS ---
BILATERAL DIGITAL SCREENING MAMMOGRAM 3D/2D WITH CAD: 08/09/2023 CLINICAL: Routine screening. Comparison is made to exams dated: 08/21/2022 mammogram, 08/12/2021 mammogram, and 08/11/2020 mammogram - [facility]. Both breasts are heterogeneously dense, which may obscure small masses (category c / 51-75% glandular tissue). Current study was also evaluated with a Computer Aided Detection (CAD) system. No significant masses, calcifications, or other findings are seen in either breast. There has been no significant interval change. IMPRESSION: NEGATIVE There is no mammographic evidence of malignancy. A 1 year screening mammogram is recommended. Based on the Tyrer Cuzick model (a risk assessment model) the patient's lifetime risk is 9.7% and her 10 year risk is 2.9%. According to the ACR, ACS, and NCCN guidelines, an annual breast MRI exam along with mammogram is recommended if the patient's lifetime risk is 20% or greater. This exam was interpreted at Station ID: [id number]. NOTE: For mammograms, a report in lay terms will be sent to the patient. Approximately 15% of breast malignancies will not be visualized mammographically. In the management of a palpable breast mass, a negative mammogram must not discourage biopsy of a clinically suspicious lesion. Electronically Signed By: Baldo simon/meghan:08/09/2023 14:22:56 letter sent: Normal Exam ACR BI-RADS Category 1: Negative 3341F
== END ==
PROVIDERS: Family Provider Internal Medicine; PCP Internal Medicine; Referring Provider Internal Medicine; Visit Provider Internal Medicine
DX: Z12.31 Encounter for screening mammogram for malignant neoplasm of breast (principal)
CPT/HCPCS: 77063; 77067

== ENCOUNTER → 2023-11-07 14:23 | Outpatient (ROUT) | payer OTHER, SELFPAY ==
[2021-11-03 00:57] VITALS: BMI 26.0
[2023-11-07 14:41] LABS: INR 0.9 (0.9-1.3); Prothrombin Time 10.8 SECONDS (9.4-12.5)
[2023-11-07 14:43] LABS: PTT Partial Thromboplastin Tim 27 SECONDS (25.1-36.5)
== END ==
PROVIDERS: Family Provider Internal Medicine; PCP Internal Medicine; Visit Provider Internal Medicine
DX: H11.32 Conjunctival hemorrhage, left eye (principal)
CPT/HCPCS: 85610; 85730

== ENCOUNTER → 2023-11-24 09:47 | Outpatient (CLI) | payer OTHER, SELFPAY ==
[2021-11-03 00:57] VITALS: BMI 26.0
== END ==
PROVIDERS: Family Provider Internal Medicine; PCP Internal Medicine; Visit Provider Nurse Practitioner Family
DX: J02.9 Acute pharyngitis, unspecified (principal)
CPT/HCPCS: 87070

== ENCOUNTER → 2024-01-23 08:29 | Outpatient (CLI) | payer OTHER, SELFPAY ==
[2021-11-03 00:57] VITALS: BMI 26.0
--- NOTE | 2024-01-23 08:30 | DI.US.S_ITS ---
PROCEDURE: US ABDOMEN LIMITED INDICATIONS: ELEVATED LFTS TECHNIQUE: Real-time focused scanning was performed of the abdomen, with image documentation. COMPARISON: [facility], , US ABDOMEN LIMITED, 11/02/2021, 22:16. FINDINGS: The liver is normal size measuring 15.8 cm in length. The margin is smooth. Parenchymal echotexture is homogeneous. No mass. The gallbladder surgically absent. Biliary tree is appropriate post cholecystectomy with the common duct measuring 8 mm. The visible portion of the pancreas is normal. There is no right upper quadrant free fluid. Appropriate direction of flow in the main portal vein. IMPRESSION: Normal sonographic appearance of the liver. No sign of biliary obstruction. Dictated by: Yary Bailey M.D. on 01/23/2024 at 11:20 Approved by: Yary Bailey M.D. on 01/23/2024 at 11:22
== END ==
LOC: US 08:30
PROVIDERS: Family Provider Internal Medicine; PCP Internal Medicine; Referring Provider Family Medicine; Visit Provider Family Medicine
DX: R79.89 Other specified abnormal findings of blood chemistry (principal); Z90.49 Acquired absence of other specified parts of digestive tract
CPT/HCPCS: 76705

== ENCOUNTER → 2024-02-29 13:40 | Outpatient (CLI) | payer OTHER, SELFPAY ==
[2021-11-03 00:57] VITALS: BMI 26.0
--- NOTE | 2024-02-29 13:41 | DI.CT.S_ITS ---
PROCEDURE: CT ABDOMEN PELVIS W CON INDICATIONS: ABNORMAL ENZYME LEVELS TECHNIQUE: After the administration of intravenous contrast, axial sections acquired from the lung bases to the pubic symphysis. Coronal and sagittal reformats were performed. For radiation dose reduction, the following was used: automated exposure control, adjustment of mA and/or kV according to patient size. COMPARISON: CT, CT KIDNEY URETER BLADDER (KUB), 06/24/2023, 17:09. FINDINGS: Image quality: Diagnostic. Lower Chest: No significant findings. ABDOMEN: Liver: No solid mass. Normal size. Mild hepatic steatosis. Gallbladder: Surgically absent. Biliary ducts: There is mild intrahepatic biliary dilation. Common bile duct measures 12 mm. Question tiny intraductal stones within the distal common bile duct. Pancreas: No ductal dilation. Spleen: Size is within normal limits. Adrenal Glands: No adrenal nodules. Kidneys and Ureters: There is a 2 mm nonobstructive stone in the left kidney. No hydronephrosis. No solid mass. No complex renal cystic lesion which requires follow up. Stomach and Bowel: Normal bowel caliber, without significant wall thickening. Normal appendix. Mild diverticulosis without diverticulitis. Peritoneum: No abnormal intraperitoneal fluid. No free air. Ventral Wall: No significant ventral hernia. Abdominal Nodes: No retroperitoneal or mesenteric adenopathy by size criteria. Vessels: Aorta and inferior vena cava are normal in size. PELVIS: Pelvic Organs: Unremarkable. Bladder: No bladder wall thickening, accounting for underdistention. Pelvic Nodes: No enlarged lymph nodes. Miscellaneous: No inguinal hernias are seen. Bones: No aggressive osseous abnormality. Moderate to severe spondylitic changes in lumbar spine. IMPRESSION: 1. Cholecystectomy. There is intrahepatic and extrahepatic biliary dilation. Question tiny intraductal stones in the distal common bile duct. Consider MRCP for further evaluation. 2. Mild hepatic steatosis. 3. A 2 mm nonobstructive stone in the left kidney. 4. Mild diverticulosis without diverticulitis. Dictated by: Dougie Jane M.D. on 03/01/2024 at 8:04 Approved by: Dougie Jane M.D. on 03/01/2024 at 8:49
== END ==
PROVIDERS: Family Provider Internal Medicine; PCP Internal Medicine; Referring Provider Internal Medicine; Visit Provider Internal Medicine
DX: K83.8 Other specified diseases of biliary tract (principal); N20.0 Calculus of kidney; K57.90 Diverticulosis of intestine, part unspecified, without perforation or abscess without bleeding; K76.0 Fatty (change of) liver, not elsewhere classified; R79.89 Other specified abnormal findings of blood chemistry; M47.816 Spondylosis without myelopathy or radiculopathy, lumbar region; R74.8 Abnormal levels of other serum enzymes; Z90.49 Acquired absence of other specified parts of digestive tract
CPT/HCPCS: 74177; Q9967

== ENCOUNTER → 2024-03-11 16:12 | Outpatient (CLI) | payer OTHER, SELFPAY ==
[2021-11-03 00:57] VITALS: BMI 26.0
--- NOTE | 2024-03-11 | DI.MRI.S_ITS ---
PROCEDURE: MR AB PANCREATIC/MRCP PROTOCOL INDICATIONS: ABNORMAL CT OF ABDOMEN, ELEVATED LFTS TECHNIQUE: Coronal HASTE through the abdomen, axial 2-D FLASH in- and how-[id number], and breath-hold T2 FSE with fat saturation through the biliary system and pancreas. Oblique coronal and axial thin-slice HASTE, radial thick-slab HASTE centered on the extrahepatic bile ducts. COMPARISON: [facility], CT, CT ABDOMEN PELVIS W CON, 02/29/2024, 15:33. FINDINGS: Image quality: Diagnostic. Gallbladder: Absent. Biliary ducts: No biliary dilation. No choledocholithiasis. Pancreas: No ductal dilation. Pancreas divisum. OTHER: Lung bases: Unremarkable. Liver: No solid mass. Spleen: Size is within normal limits. Adrenal Glands: No adrenal nodules. Kidneys and Ureters: No hydronephrosis. No solid mass. No complex renal cystic lesion which requires follow up. Stomach and Bowel: Normal colonic caliber, without significant wall thickening. Peritoneum: No abnormal intraperitoneal fluid. No free air. Ventral Wall: No hernia. Abdominal Nodes: No retroperitoneal or mesenteric adenopathy by size criteria. Vessels: Aorta and inferior vena cava are normal in size. Bones: No aggressive osseous abnormality. IMPRESSION: 1. No choledocholithiasis. 2. No biliary or pancreatic ductal dilatation. Pancreas divisum. Dictated by: Herminio Ojeda M.D. on 03/12/2024 at 10:37 Approved by: Herminio Ojeda M.D. on 03/12/2024 at 11:02
== END ==
PROVIDERS: Family Provider Internal Medicine; PCP Internal Medicine; Referring Provider Internal Medicine; Visit Provider Internal Medicine
DX: K83.8 Other specified diseases of biliary tract (principal); Q45.3 Other congenital malformations of pancreas and pancreatic duct; R79.89 Other specified abnormal findings of blood chemistry; R93.5 Abnormal findings on diagnostic imaging of other abdominal regions, including retroperitoneum; Z90.49 Acquired absence of other specified parts of digestive tract
CPT/HCPCS: 74183; A9579

== ENCOUNTER → 2024-04-01 09:56 | Outpatient (CLI) | payer OTHER, SELFPAY ==
[2021-11-03 00:57] VITALS: BMI 26.0
--- NOTE | 2024-04-01 09:58 | DI.RAD.S_ITS ---
PROCEDURE: XR LUMBAR SPINE MIN 4V INDICATIONS: Low back pain, right upper buttock pain TECHNIQUE: 5 views of the lumbar spine acquired, including flexion and extension views. COMPARISON: None. FINDINGS: Bones: 5 nonrib-bearing vertebrae are present. There is normal bony alignment. No vertebral body compression fractures. No suspicious bony lesions. Severe L2-L3 degenerative disc disease. Moderate L5-S1 degenerative disc disease. Mild L3-L4 and L4-L5 degenerative disc disease. Mild L4-L5 and L5-S1 facet arthropathy. Soft tissues: Overlying bowel gas pattern is normal. No suspicious soft tissue calcifications. Flexion/extension: There is normal range of motion, with preserved normal alignment. IMPRESSION: Multilevel degenerative disc disease. Multilevel facet arthropathy. No fracture. No acute osseous lesion. If symptoms and/or clinical suspicion for pathology persists, evaluation with MRI should be considered for further assessment. Dictated by: Fina Patterson MD, PhD on 04/01/2024 at 10:18 Approved by: Fina Patterson MD, PhD on 04/01/2024 at 10:19
== END ==
PROVIDERS: Family Provider Internal Medicine; PCP Internal Medicine; Referring Provider Physician Assistant Surgical; Visit Provider Physician Assistant Surgical
DX: M51.36 Other intervertebral disc degeneration, lumbar region (principal); M51.37 Other intervertebral disc degeneration, lumbosacral region; M47.816 Spondylosis without myelopathy or radiculopathy, lumbar region; M47.817 Spondylosis without myelopathy or radiculopathy, lumbosacral region; M54.50 Low back pain, unspecified
CPT/HCPCS: 72110

== ENCOUNTER 2024-06-25 11:48 | Emergency (ER) | payer OTHER, SELFPAY ==
[2021-11-03 00:57] VITALS: BMI 26.0
[2024-06-25] VITALS (14 sets, daily range): BP systolic 111–139; BP diastolic 72–83; PULSE 82–94; RESP 16–24; TEMP 36.6; O2SAT 95–100; BMI 31.4
--- NOTE | 2024-06-25 12:02 | DI.RAD.S_ITS ---
PROCEDURE: XR CHEST 1V INDICATIONS: chest pain TECHNIQUE: One view of the chest was acquired. COMPARISON: None. FINDINGS: Low lung volumes with mild bibasilar subsegmental atelectasis some of which commonly related expiratory result. Mild degenerative changes of the thoracic spine. Cardiac leads, lines overlie the chest and partially obscure radiographic detail. No pneumothorax, no pleural effusion, no focal consolidation. Cardiomediastinal silhouette and pulmonary vasculature within normal limits for portable AP view. IMPRESSION: Low lung volumes with mild bibasilar subsegmental atelectasis some of which commonly related expiratory result. If symptoms persist or worsen, CT chest could be performed Dictated by: Praveen Guerrero M.D. on 06/25/2024 at 13:09 Approved by: Praveen Guerrero M.D. on 06/25/2024 at 13:13
--- NOTE | 2024-06-25 12:08 | EKG_ITS ---
[address] [address] Test Date: 2024-06-25 Pat Name: Geri Hoskins Department: [facility] Room: Gender: Female [employer] Service Representative: mariangel : 1970 Requested By: Order Number: [id number] Reading MD: Jose Head Measurements Intervals [place] Rate: 91 P: 33 WV: 138 QRS: 4 QRSD: 84 T: 21 QT: 344 QTc: 423 Interpretive Statements Normal sinus rhythm Electronically Signed On 06-25-2024 12:58:00 PDT by Jose Head
--- NOTE | 2024-06-25 12:22 | ED_ITS ---
HPI - Chest Pain General Chief Complaint: Chest Pain Stated Complaint: sent by [facility], chest px, nausea Time Seen by Provider: 06/25/24 12:16 Source: patient Mode of arrival: Ambulatory History of Present Illness HPI narrative: Patient is sent here from walk-in clinic/primary care for substernal chest discomfort nausea and sweating. This has resolved. It lasted about 20 or 30 minutes. Patient however has had episodes of this in the past 3 days. Currently no chest pain. No recent exertional chest pain or shortness of breath. Never had cardiac workup in the past. There is family history of cardiac disease. Patient sees Ana Reyes for primary care. Related Data Home Medications Medication Instructions Recorded Confirmed trazodone 100 mg tablet 50 mg PO BEDTIME PRN insomnia 11/03/21 11/24/23 Previous Rx's Medication Instructions Recorded cyclobenzaprine 10 mg tablet 10 mg PO BID PRN muscle spasm #20 04/01/24 tabs methylprednisolone 4 mg tablets in See Rx Instructions PO PER PKG DIR 04/01/24 a dose pack (Medrol (Sergio)) #21 ea pantoprazole 40 mg tablet,delayed 40 mg PO DAILY #30 tabs 06/25/24 release (Protonix) Allergies Allergy/AdvReac Type Severity Reaction Status Date / Time No Known Drug Allergies Allergy Verified 04/01/24 07:45 Review of Systems Review of Systems Narrative: GENERAL: negative chills, fatigue, malaise, fever, positive sweats. HEENT: negative sinus pain, ear pain, sore throat RESPIRATORY: negative dyspnea, cough CARDIOVASCULAR: Positive chest pain, negative palpitations GASTROINTESTINAL: Positive nausea, negative vomiting, abdominal pain : negative dysuria, frequency, hematuria MUSCULOSKELETAL: negative muscle or bony pain SKIN: negative rash, skin lesions NEUROLOGIC: negative weakness, numbness Patient History Medical History (Updated 07/10/24 @ 00:00 by ) Major depressive disorder, recurrent, moderate Salicylate overdose Family History Mother No problems noted. Social History marital status: number of children: 2 household members: spouse housing: house occupational status: employed Smoking Status: Former smoker alcohol intake: current Smoking Status: Former smoker alcohol intake frequency: holidays/special occasions only Substance Use Type: does not use Exam Narrative Exam Narrative: GENERAL: in no distress, not toxic not dyspneic HEAD: Normocephalic. EYES: Pupils equal round ENT: Mucous membranes moist. NECK: Trachea midline. CARDIOVASCULAR: Regular rate and rhythm RESPIRATORY: Clear to auscultation. Breath sounds equal bilaterally. No wheezes, rales, or rhonchi. GASTROINTESTINAL: Abdomen soft, non-tender EXTREMITIES: No gross deformities. BACK: No flank tenderness. NEURO: AOx4. SKIN: Warm and dry PSYCH: Not anxious, is cooperative Initial Vital Signs Initial Vital Signs: Vital Signs Temperature 97.8 F 06/25/24 11:58 Pulse Rate 94 H 06/25/24 11:58 Respiratory Rate 16 06/25/24 11:58 Blood Pressure 123/83 06/25/24 11:58 Pulse Oximetry 98 06/25/24 11:58 Oxygen Delivery Method Room Air 06/25/24 11:58 Course Orders Ordered: Discontinued Medications Aspirin (Aspirin 81 Mg Chew Tab) 324 mg PO NOW ONE Stop: 06/25/24 12:03 Last Admin: 06/25/24 12:28 Dose: 324 mg Documented By: ALEXIS Sodium Chloride (Normal Saline 0.9%) 500 mls @ 1,000 mls/hr IV BOLUS ONE Stop: 06/25/24 14:49 Last Infusion: 06/25/24 16:02 Dose: Infused Documented By: Admin: 06/25/24 14:37 Dose: 1,000 mls/hr Documented By: ALEXIS Vital Signs Vital signs: Vital Signs - 8 hr 06/25/24 11:58 06/25/24 12:11 06/25/24 12:12 Temperature 97.8 F Pulse Rate 94 H 91 H 91 H Respiratory Rate 16 Blood Pressure 123/83 Pulse Oximetry 98 96 97 Oxygen Delivery Method Room Air 06/25/24 12:12 06/25/24 12:30 06/25/24 12:30 Temperature Pulse Rate 92 H Respiratory Rate 20 Blood Pressure 114/79 122/77 Pulse Oximetry 98 Oxygen Delivery Method Room Air 06/25/24 13:00 06/25/24 13:00 06/25/24 13:30 Temperature Pulse Rate 82 Respiratory Rate 20 Blood Pressure 111/77 115/78 Pulse Oximetry 98 Oxygen Delivery Method 06/25/24 13:30 06/25/24 14:00 06/25/24 14:06 Temperature Pulse Rate 82 Respiratory Rate 24 20 Blood Pressure Pulse Oximetry 98 95 Oxygen Delivery Method Room Air 06/25/24 14:06 06/25/24 14:45 06/25/24 14:47 Temperature Pulse Rate 82 83 Respiratory Rate 22 19 Blood Pressure 128/72 Pulse Oximetry 99 100 Oxygen Delivery Method 06/25/24 14:47 06/25/24 15:00 06/25/24 15:00 Temperature Pulse Rate 83 Respiratory Rate 18 Blood Pressure 139/77 133/76 Pulse Oximetry 100 Oxygen Delivery Method 06/25/24 15:30 06/25/24 15:30 06/25/24 16:00 Temperature Pulse Rate 82 85 Respiratory Rate 18 20 Blood Pressure 126/79 Pulse Oximetry 100 100 Oxygen Delivery Method 06/25/24 16:00 06/25/24 16:30 06/25/24 16:30 Temperature Pulse Rate 82 Respiratory Rate 17 Blood Pressure 121/77 123/75 Pulse Oximetry Oxygen Delivery Method Room Air MDM - Chest Pain Lab Data 06/25/24 12:22 06/25/24 12:22 Labs: Lab Results 06/25/24 06/25/24 Range/Units 12:22 14:20 WBC 6.4 (4.5-11.0) X10^3/uL RBC 4.36 (4.0-5.2) X10^6/uL Hgb 13.6 (12.0-16.0) g/dL Hct 39.6 (36-46) % MCV 90.8 (80-100) fL MCH 31.2 (26-34) PG MCHC 34.3 (30-36) % RDW 14.3 (11.6-14.8) % Plt Count 326 (150-400) X10^3/uL Neut % (Auto) 71.3 (50-75) % Lymph % (Auto) 20.1 L (25-40) % [place] % (Auto) 6.3 (3-14) % Eos % (Auto) 1.6 L (2-4) % Baso % (Auto) 0.7 (0-2) % Neut # (Auto) 4600 (2566-1496) /uL Lymph # (Auto) 1300 (0857-5001) /uL [place] # (Auto) 400 (0-900) /uL Eos # (Auto) 100 (0-450) /uL Baso # (Auto) 0 (0-100) /uL PT 11.8 (9.4-12.5) SECONDS INR 1.0 (0.9-1.3) APTT 34 (25.1-36.5) SECONDS Sodium 135 L (137-145) mmol/L Potassium 4.3 (3.4-5.1) mmol/L Chloride 103 (98-107) mmol/L Carbon Dioxide 26 (22-32) mmol/L BUN 24 H (7-17) mg/dL Creatinine 0.82 (0.52-1.04) mg/dL Estimated GFR > 60 (>60) mL/min BUN/Creatinine Ratio 29.3 H (6-22) Glucose 107 H (70-100) mg/dL Calcium 8.9 (8.4-10.2) mg/dL Magnesium 1.8 (1.6-2.3) mg/dL Total Bilirubin 0.4 (0.2-1.3) mg/dL AST 57 H (14-36) IU/L ALT 89 H (<35) IU/L Alkaline Phosphatase 164 H (38-126) U/L Total Creatine Kinase 83 76 (30-135) U/L Troponin I < 0.012 < 0.012 (0.01-0.034) ng/mL NT-Pro-B Natriuret Pep < 20 (<125) pg/mL Total Protein 7.3 (6.3-8.2) g/dL Albumin 4.2 (3.5-5.0) g/dL Globulin 3.1 (1.7-4.1) g/dL Albumin/Globulin Ratio 1.4 (1.0-2.8) Lipase 35 (23-300) U/L Imaging Data Chest x-ray: Radiologist's Impression: [address] [address] XRay Report Signed Patient: Geri Hoskins MR#: [id number] : 1970 Acct:[id number] Age/Sex: 54 / F Date of Service: 06/25/24 Loc: ED Accession Number: [id number] Procedure: XR chest 1V Ordering Provider: Walter Saxena MD PROCEDURE: XR CHEST 1V INDICATIONS: chest pain TECHNIQUE: One view of the chest was acquired. COMPARISON: None. FINDINGS: Low lung volumes with mild bibasilar subsegmental atelectasis some of which commonly related expiratory result. Mild degenerative changes of the thoracic spine. Cardiac leads, lines overlie the chest and partially obscure radiographic detail. No pneumothorax, no pleural effusion, no focal consolidation. Cardiomediastinal silhouette and pulmonary vasculature within normal limits for portable AP view. IMPRESSION: Low lung volumes with mild bibasilar subsegmental atelectasis some of which commonly related expiratory result. If symptoms persist or worsen, CT chest could be performed Dictated by: Praveen Guerrero M.D. on 06/25/2024 at 13:09 Approved by: Praveen Guerrero M.D. on 06/25/2024 at 13:13 CT scan - chest: Radiologist's Impression: [place] [address] CT Scan Report Signed Patient: Geri Hoskins MR#: [id number] : 1970 Acct:[id number] Age/Sex: 54 / F Date of Service: 06/25/24 Loc: ED Accession Number: [id number] Procedure: CT angio chest PE protocol Ordering Provider: Walter Saxena MD PROCEDURE: CT ANGIO CHEST PE PROTOCOL INDICATIONS: Chest pain TECHNIQUE: After the administration of approximately 70 cc Isovue-300 intravenous contrast, 2 mm thick sections acquired from the pulmonary apices to the posterior costophrenic angles. 3-dimensional maximum intensity projection (MIP) coronal and sagittal reformats were then acquired through the thorax. For radiation dose reduction, the following was used: automated exposure control, adjustment of mA and/or kV according to patient size. COMPARISON: None. FINDINGS: Image quality: Diagnostic. Pulmonary arteries are normal in size, and demonstrate no CT evidence of filling defects to suggest central pulmonary embolism. Mild bibasilar subsegmental atelectasis some of which may be related expiratory result. Jwcz-hn-osvqmkjg bilateral diffuse peribronchial thickening with patchy alveolar opacities predominantly in the lower lobes, bronchitis, viral infection, asthma or other process could be considered. Mild pericardial effusion or pericardial thickening predominantly posteriorly on the left measuring up to 8 mm thickness. Moderate degenerative changes of the thoracic spine without CT evidence of fracture, subluxation or central stenosis. No pneumothorax, no pleural effusion, no lobar consolidation. Several 1 mm-3 mm bilateral nonobstructing renal calculi in the superior poles of the kidneys partially imaged no CT evidence of hydronephrosis. Lower Neck: No enlarged lymph nodes. Thyroid: No thyroid nodules which require sonographic follow up, per consensus guidelines. Axillae: No enlarged lymph nodes. Chest Wall: Unremarkable. Heart: Heart size is normal. Thoracic Vessels: No aortic aneurysm, no dissection. Mediastinum and Jillian: No enlarged lymph nodes. Esophagus: No wall thickening. No hiatal hernia. Upper Abdomen: Visualized upper abdomen solid organs and bowel loops appear normal. IMPRESSION: No CT evidence of filling defects to suggest pulmonary embolism. Ykbt-ya-stsvjolx bilateral diffuse peribronchial thickening with patchy alveolar opacities predominantly in the lower lobes, bronchitis, viral infection, asthma or other process could be considered. Follow-up suggested. Mild pericardial effusion or pericardial thickening predominantly posteriorly on the left measuring up to 8 mm thickness. Follow-up suggested. Mild bibasilar subsegmental atelectasis. Several 1 mm-3 mm bilateral nonobstructing renal calculi. Dictated by: Praveen Guerrero M.D. on 06/25/2024 at 15:30 Approved by: Praveen Guerrero M.D. on 06/25/2024 at 15:42 CT scan - abdomen/pelvis: Radiologist's Impression: [place] [address] CT Scan Report Signed Patient: Geri Hoskins MR#: [id number] : 1970 Acct:[id number] Age/Sex: 54 / F Date of Service: 06/25/24 Loc: ED Accession Number: [id number] Procedure: CT abdomen pelvis w con Ordering Provider: Walter Saxena MD PROCEDURE: CT ABDOMEN PELVIS W CON INDICATIONS: IV contrast only/Elevated liver enzymes TECHNIQUE: After the administration of intravenous contrast, axial sections acquired from the lung bases to the pubic symphysis. Coronal and sagittal reformats were performed. For radiation dose reduction, the following was used: automated exposure control, adjustment of mA and/or kV according to patient size. COMPARISON: [facility], CT, CT ABDOMEN PELVIS W CON, 02/29/2024, 15:33. FINDINGS: ABDOMEN: Image quality: Diagnostic. In the pelvis, there is new mild hydrometrocolpos with low-attenuation presumed fluid-filled endometrial cavity measuring up to 1.3 cm diameter which is non- specific but may represent pattern of obstruction, endometrial polyp or other lesion. Follow-up suggested on an outpatient basis. Pattern of constipation. Mild calcifications of the aorta and iliac vessels unchanged. 1 mm-3 mm bilateral nonobstructing renal calculi unchanged, no hydronephrosis, no ureteral calculi. Moderate degenerative changes lower thoracic and the lumbar spine most notably at L2-3, L4-5 and L5-S1 with suspected mild to moderate bilateral neural foraminal narrowing but without definitive central stenosis unchanged. Gallbladder is surgically absent and there is intrahepatic and extrahepatic biliary ductal dilatation measuring up to 1.2 cm common bile duct, commonly may be related to post cholecystectomy although common bile duct, biliary sludge, noncalcified stones or other pattern of obstruction could be considered, similar to the prior exam. Correlation with serum laboratory values may be useful. If indicated MRCP or ERCP could be considered. Liver: No solid mass. Pancreas: Normal. Spleen: Normal. Adrenal Glands: Normal. Kidneys and Ureters: No hydronephrosis. No solid mass. No complex renal cystic lesion which requires follow up. Stomach and Bowel: Normal colonic caliber, without wall thickening. Peritoneum: No abnormal intraperitoneal fluid. No free air. Ventral Wall: No significant ventral hernia. Abdominal Nodes: No retroperitoneal or mesenteric adenopathy by size criteria. Vessels: Aorta and inferior vena cava are normal in size. PELVIS: Bladder: No bladder wall thickening, accounting for underdistention. Pelvic Nodes: No enlarged lymph nodes. Miscellaneous: No inguinal hernias are seen. IMPRESSION: New mild hydrometrocolpos as discussed above. Follow-up suggested on an outpatient basis. Moderate degenerative changes lower thoracic and the lumbar spine most notably at L2-3, L4-5 and L5-S1 unchanged. Intrahepatic and extrahepatic biliary ductal dilatation, similar to the prior exam. Correlation with serum laboratory values may be useful. If indicated MRCP or ERCP could be considered. Dictated by: Praveen Guerrero M.D. on 06/25/2024 at 15:43 Approved by: Praveen Guerrero M.D. on 06/25/2024 at 15:52 MDM Narrative Medical decision making narrative: Patient is sent here from walk-in clinic/primary care for substernal chest discomfort nausea and sweating. This has resolved. It lasted about 20 or 30 minutes. Patient however has had episodes of this in the past 3 days. Currently no chest pain. No recent exertional chest pain or shortness of breath. Never had cardiac workup in the past. There is family history of cardiac disease. Patient sees Ana Reyes for primary care. After history and exam [facility] Medical records reviewed: No recent visit for this complaint Differential considered: Includes but not limited to STEMI non-STEMI angina unstable angina Lab Test results independently reviewed as above. Pertinent findings: WBC 6.4 hemoglobin 13.6 INR 1.0 sodium 135 potassium 4.3 AST 57 ALT 89 troponin less than 0.012 x2 Independently reviewed EKG normal EKG normal sinus rhythm rate 91 Imaging studies independently reviewed: Chest x-ray no acute finding CT chest no pulmonary embolism CT abdomen pelvis no acute finding. Consultations: 2:[address] Ramos, primary care on-call for patient's primary office, she would like CT abdomen pelvis and repeat troponin and call her back with results before admission evaluation 4:[address] Ramos again. Exam and repeat troponin are reassuring. She does not feel this is cardiac in nature. She would like patient discharged home on Protonix and follow up in the office for outpatient workup and possible stress test. Treatments: Aspirin Re-evaluations: 4:00 p.m.. Patient remains chest pain-free. Awaiting callback from Dr. Ramos 4:35 p.m.. Spoke with patient . Remains chest pain-free. They would like to be discharged home. They agree with Dr. Ramos. They will follow up with primary care. Return precautions reviewed. They desire discharge home. Discussion: I have reviewed with primary care, Dr. Ramos and desires patient to be discharged home. Return precautions reviewed with patient. Diagnosis: Chest pain Discharge Plan Departure Patient Disposition: Home Clinical Impression: Atypical chest pain Instructions: DI for Gastroesophageal Reflux Disease (GERD), DI for Atypical Chest Pain Activity Restrictions/Additional Instructions: Your primary care office has recommended you to be discharged home. At this time this may reflux related. Prescription medication has been sent to your pharmacy to [facility] Prescriptions: New pantoprazole [Protonix] 40 mg tablet,delayed release (DR/EC) 40 mg PO DAILY Qty: 30 0RF No Action methylprednisolone [Medrol (Sergio)] 4 mg tablets,dose pack See Rx Instructions PO PER PKG DIR Qty: 21 0RF Rx Instructions: PO PER PKG DIR for 6 days cyclobenzaprine 10 mg tablet 10 mg PO BID PRN (Reason: muscle spasm) Qty: 20 0RF trazodone 100 mg tablet 50 mg PO BEDTIME PRN (Reason: insomnia) Referrals: Ana Reyes ARNP [Primary Care Provider] - Stand Alone Forms: Patient Portal/API, Work Release Note
[2024-06-25] MEDS: ASPIRIN 81 MG CHEW TAB 324 MG PO (12:28)
[2024-06-25 12:38] LABS: Prothrombin Time 11.8 SECONDS (9.4-12.5)
[2024-06-25 12:40] LABS: Add Manual Diff / Slide Review NO; Basophils Absolute Auto 0 /uL (0-100); Basophils Percent Auto 0.7 % (0-2); Eosinophils Absolute Auto 100 /uL (0-450); Eosinophils Percent Auto 1.6 % (2-4); Hematocrit 39.6 % (36-46); Hemoglobin 13.6 g/dL (12.0-16.0); Lymphocytes Absolute Auto 1300 /uL (1100-4500); Lymphocytes Percent Auto 20.1 % (25-40); Mean Corpuscular HGB Conc 34.3 % (30-36); Mean Corpuscular Hemoglobin 31.2 PG (26-34); Mean Corpuscular Volume 90.8 fL (80-100); Monocytes Absolute Auto 400 /uL (0-900); Monocytes Percent Auto 6.3 % (3-14); Neutrophils Absolute Auto 4600 /uL (1500-7000); Neutrophils Percent Auto 71.3 % (50-75); PTT Partial Thromboplastin Tim 34 SECONDS (25.1-36.5); Platelet Count 326 X10^3/uL (150-400); Red Blood Cell Count 4.36 X10^6/uL (4.0-5.2); Red Cell Distribution Width 14.3 % (11.6-14.8); White Blood Cell Count 6.4 X10^3/uL (4.5-11.0)
[2024-06-25 12:48] LABS: Alanine Aminotransferase 89 IU/L (<35); Albumin 4.2 g/dL (3.5-5.0); Albumin Globulin Ratio 1.4 (1.0-2.8); Alkaline Phosphatase 164 U/L (38-126); Aspartate Aminotransferase 57 IU/L (14-36); BUN Creatinine Ratio 29.3 (6-22); Bilirubin Total 0.4 mg/dL (0.2-1.3); Blood Urea Nitrogen 24 mg/dL (7-17); Calcium 8.9 mg/dL (8.4-10.2); Carbon Dioxide 26 mmol/L (22-32); Chloride 103 mmol/L (98-107); Creatine Kinase 83 U/L (30-135); Estimated Glomerular Filt Rate > 60 mL/min (>60); Globulin 3.1 g/dL (1.7-4.1); Glucose 107 mg/dL (70-100); Lipase 35 U/L (23-300); Magnesium 1.8 mg/dL (1.6-2.3); Potassium 4.3 mmol/L (3.4-5.1); Sodium 135 mmol/L (137-145); Total Protein 7.3 g/dL (6.3-8.2)
[2024-06-25 13:15] LABS: HEMOLYSIS < 15 (0-50); NT-proBNP (BNP-Adult 18+) < 20 pg/mL (<125); Troponin I < 0.012 ng/mL (0.01-0.034)
--- NOTE | 2024-06-25 14:06 | DI.CT.S_ITS ---
PROCEDURE: CT ABDOMEN PELVIS W CON INDICATIONS: IV contrast only/Elevated liver enzymes TECHNIQUE: After the administration of intravenous contrast, axial sections acquired from the lung bases to the pubic symphysis. Coronal and sagittal reformats were performed. For radiation dose reduction, the following was used: automated exposure control, adjustment of mA and/or kV according to patient size. COMPARISON: [facility], CT, CT ABDOMEN PELVIS W CON, 02/29/2024, 15:33. FINDINGS: ABDOMEN: Image quality: Diagnostic. In the pelvis, there is new mild hydrometrocolpos with low-attenuation presumed fluid-filled endometrial cavity measuring up to 1.3 cm diameter which is non-specific but may represent pattern of obstruction, endometrial polyp or other lesion. Follow-up suggested on an outpatient basis. Pattern of constipation. Mild calcifications of the aorta and iliac vessels unchanged. 1 mm-3 mm bilateral nonobstructing renal calculi unchanged, no hydronephrosis, no ureteral calculi. Moderate degenerative changes lower thoracic and the lumbar spine most notably at L2-3, L4-5 and L5-S1 with suspected mild to moderate bilateral neural foraminal narrowing but without definitive central stenosis unchanged. Gallbladder is surgically absent and there is intrahepatic and extrahepatic biliary ductal dilatation measuring up to 1.2 cm common bile duct, commonly may be related to post cholecystectomy although common bile duct, biliary sludge, noncalcified stones or other pattern of obstruction could be considered, similar to the prior exam. Correlation with serum laboratory values may be useful. If indicated MRCP or ERCP could be considered. Liver: No solid mass. Pancreas: Normal. Spleen: Normal. Adrenal Glands: Normal. Kidneys and Ureters: No hydronephrosis. No solid mass. No complex renal cystic lesion which requires follow up. Stomach and Bowel: Normal colonic caliber, without wall thickening. Peritoneum: No abnormal intraperitoneal fluid. No free air. Ventral Wall: No significant ventral hernia. Abdominal Nodes: No retroperitoneal or mesenteric adenopathy by size criteria. Vessels: Aorta and inferior vena cava are normal in size. PELVIS: Bladder: No bladder wall thickening, accounting for underdistention. Pelvic Nodes: No enlarged lymph nodes. Miscellaneous: No inguinal hernias are seen. IMPRESSION: New mild hydrometrocolpos as discussed above. Follow-up suggested on an outpatient basis. Moderate degenerative changes lower thoracic and the lumbar spine most notably at L2-3, L4-5 and L5-S1 unchanged. Intrahepatic and extrahepatic biliary ductal dilatation, similar to the prior exam. Correlation with serum laboratory values may be useful. If indicated MRCP or ERCP could be considered. Dictated by: Praveen Guerrero M.D. on 06/25/2024 at 15:43 Approved by: Praveen Guerrero M.D. on 06/25/2024 at 15:52
--- NOTE | 2024-06-25 14:19 | DI.CT.S_ITS ---
PROCEDURE: CT ANGIO CHEST PE PROTOCOL INDICATIONS: Chest pain TECHNIQUE: After the administration of approximately 70 cc Isovue-300 intravenous contrast, 2 mm thick sections acquired from the pulmonary apices to the posterior costophrenic angles. 3-dimensional maximum intensity projection (MIP) coronal and sagittal reformats were then acquired through the thorax. For radiation dose reduction, the following was used: automated exposure control, adjustment of mA and/or kV according to patient size. COMPARISON: None. FINDINGS: Image quality: Diagnostic. Pulmonary arteries are normal in size, and demonstrate no CT evidence of filling defects to suggest central pulmonary embolism. Mild bibasilar subsegmental atelectasis some of which may be related expiratory result. [id number] bilateral diffuse peribronchial thickening with patchy alveolar opacities predominantly in the lower lobes, bronchitis, viral infection, asthma or other process could be considered. Mild pericardial effusion or pericardial thickening predominantly posteriorly on the left measuring up to 8 mm thickness. Moderate degenerative changes of the thoracic spine without CT evidence of fracture, subluxation or central stenosis. No pneumothorax, no pleural effusion, no lobar consolidation. Several 1 mm-3 mm bilateral nonobstructing renal calculi in the superior poles of the kidneys partially imaged no CT evidence of hydronephrosis. Lower Neck: No enlarged lymph nodes. Thyroid: No thyroid nodules which require sonographic follow up, per consensus guidelines. Axillae: No enlarged lymph nodes. Chest Wall: Unremarkable. Heart: Heart size is normal. Thoracic Vessels: No aortic aneurysm, no dissection. Mediastinum and Jillian: No enlarged lymph nodes. Esophagus: No wall thickening. No hiatal hernia. Upper Abdomen: Visualized upper abdomen solid organs and bowel loops appear normal. IMPRESSION: No CT evidence of filling defects to suggest pulmonary embolism. Yavv-kr-auribhzi bilateral diffuse peribronchial thickening with patchy alveolar opacities predominantly in the lower lobes, bronchitis, viral infection, asthma or other process could be considered. Follow-up suggested. Mild pericardial effusion or pericardial thickening predominantly posteriorly on the left measuring up to 8 mm thickness. Follow-up suggested. Mild bibasilar subsegmental atelectasis. Several 1 mm-3 mm bilateral nonobstructing renal calculi. Dictated by: Praveen Guerrero M.D. on 06/25/2024 at 15:30 Approved by: Praveen Guerrero M.D. on 06/25/2024 at 15:42
[2024-06-25] MEDS: SODIUM CHLORIDE 0.9% 500 ML 1000 ML IV (14:37)
[2024-06-25 14:45] LABS: Creatine Kinase 76 U/L (30-135)
[2024-06-25 14:58] LABS: Troponin I < 0.012 ng/mL (0.01-0.034)
== END 2024-06-25 16:58 | disposition home or self-care (01) ==
PROVIDERS: Emergency Provider Emergency Medicine; Family Provider Internal Medicine; PCP Internal Medicine
DX: R07.89 Other chest pain (principal); R11.0 Nausea
CPT/HCPCS: 36415; 71045; 71275; 74177; 80053; 82550; 83690; 83735; 83880; 84484; 85025; 85610; 85730; 93005; 96360; 99284; Q9967

== ENCOUNTER → 2024-08-13 15:08 | Outpatient (CLI) | payer OTHER, SELFPAY ==
[2021-11-03 00:57] VITALS: BMI 26.0
--- NOTE | 2024-08-13 15:09 | DI.MG.S_ITS ---
BILATERAL DIGITAL SCREENING MAMMOGRAM 3D/2D WITH CAD: 08/13/2024 CLINICAL: Routine screening. Comparison is made to exams dated: 08/09/2023 mammogram, 08/21/2022 mammogram, 08/12/2021 mammogram, and 08/11/2020 mammogram - [facility]. The breasts are heterogeneously dense, which may obscure small masses (category c / 51-75% glandular tissue). Current study was also evaluated with a Computer Aided Detection (CAD) system. No significant masses, calcifications, or other findings are seen in either breast. There has been no significant interval change. IMPRESSION: NEGATIVE There is no mammographic evidence of malignancy. A 1 year screening mammogram is recommended. Based on the Tyrer Cuzick model (a risk assessment model) the patient's lifetime risk is 9.6% and her 10 year risk is 3.1%. According to the ACR, ACS, and NCCN guidelines, an annual breast MRI exam along with mammogram is recommended if the patient's lifetime risk is 20% or greater. This exam was interpreted at Station ID: [id number]. NOTE: For mammograms, a report in lay terms will be sent to the patient. Approximately 15% of breast malignancies will not be visualized mammographically. In the management of a palpable breast mass, a negative mammogram must not discourage biopsy of a clinically suspicious lesion. Electronically Signed By: Herminio sagastume/[email or web address]:08/14/2024 09:40:23 letter sent: Normal Exam ACR BI-RADS Category 1: Negative
== END ==
LOC: MAMMO 15:09
PROVIDERS: Family Provider Internal Medicine; PCP Internal Medicine; Referring Provider Internal Medicine; Visit Provider Internal Medicine
DX: Z12.31 Encounter for screening mammogram for malignant neoplasm of breast (principal); R92.333 Mammographic heterogeneous density, bilateral breasts
CPT/HCPCS: 77063; 77067

== ENCOUNTER → 2024-11-13 10:11 | Outpatient (ROUT) | payer OTHER, SELFPAY ==
[2021-11-03 00:57] VITALS: BMI 26.0
[2024-11-13 11:03] LABS: COVID-19 CEPHEID 4-PLEX PCR Negative (Negative); Influenza A - CEPHEID Flu A NEGATIVE (NEGATIVE); Influenza B - CEPHEID Flu B NEGATIVE (NEGATIVE); Respiratory Syncytial Virus Negative (Negative)
== END ==
PROVIDERS: Family Provider Internal Medicine; PCP Internal Medicine; Visit Provider Family Medicine
DX: R05.1 Acute cough (principal); R11.0 Nausea; R51.9 Headache, unspecified
CPT/HCPCS: 0241U

== ENCOUNTER → 2025-05-15 08:00 | Outpatient (CLI) | payer OTHER, SELFPAY ==
[2021-11-03 00:57] VITALS: BMI 26.0
--- NOTE | 2025-05-15 08:02 | DI.RAD.S_ITS ---
PROCEDURE: XR SHOULDER RT MIN 2V INDICATIONS: TENDONITIS RIGHT BICEPS TECHNIQUE: Three views of the right shoulder were acquired. COMPARISON: [facility], , XR SHOULDER RT MIN 2V, 10/17/2018, 18:43. FINDINGS: Bones: There are no osseous abnormalities. Acromioclavicular and glenohumeral joints: Normal in width and alignment without arthritic change Soft tissues: No soft tissue swelling, calcification or mass. IMPRESSION: Normal right shoulder Dictated by: Alek Booth M.D. on 05/15/2025 at 9:58 Approved by: Alek Booth M.D. on 05/15/2025 at 9:58
== END ==
PROVIDERS: Family Provider Internal Medicine; PCP Internal Medicine; Referring Provider Family Medicine; Visit Provider Family Medicine
DX: M75.21 Bicipital tendinitis, right shoulder (principal)
CPT/HCPCS: 73030

== ENCOUNTER → 2025-05-24 07:15 | Outpatient (CLI) | payer OTHER, SELFPAY ==
[2025-05-20 09:51] VITALS: BMI 26.0
--- NOTE | 2025-05-24 07:18 | DI.MRI.S_ITS ---
PROCEDURE: MR SHOULDER RT WO CON INDICATIONS: rule out rotator cuff TECHNIQUE: Noncontrast oblique coronal T2 fast spin echo with fat saturation, oblique sagittal T1 spin echo and T2 fast spin echo with fat saturation, axial T1 spin echo and T2 fast spin echo with fat saturation through the shoulder. COMPARISON: [facility], MR, MR SHOULDER RT WO CON, 10/21/2018, 13:56. FINDINGS: Image quality: Excellent. Rotator cuff: Mild T2 signal elevation diffusely throughout the supraspinatus and infraspinatus tendons at the humeral insertion sites extending the musculotendinous junctions, indicating tendinopathy. No evidence of tear involving the subscapularis, supraspinatus, infraspinatus, or teres minor tendons. Bones and bursae: No bone marrow contusions or fractures. Mild glenohumeral and acromioclavicular joint degeneration. The acromion demonstrates conventional anatomy, without an os acromiale. No pathologic subacromial-subdeltoid or subcoracoid bursal fluid is present. Capsule and soft tissues: Diffuse degenerative fraying of the glenoid labrum. No change in possible superior labral tear. Partial-thickness tearing of the biceps tendon. The rotator interval appears normal, without fibrosis. The coracohumeral ligament is normal in thickness. IMPRESSION: 1. Supraspinatus and infraspinatus tendinopathy. No rotator cuff tear. 2. Acromioclavicular and glenohumeral joint osteoarthritis. 3. Degenerative fraying of glenoid labrum. No change in possible superior labral tear. 4. Biceps tendon tear. Dictated by: Papo Brar M.D. on 05/25/2025 at 11:57 Approved by: Papo Brar M.D. on 05/25/2025 at 12:05
== END ==
LOC: MRI 07:16
PROVIDERS: Family Provider Internal Medicine; PCP Family Medicine; Referring Provider Orthopaedic Surgery; Visit Provider Orthopaedic Surgery
DX: S46.211A Strain of muscle, fascia and tendon of other parts of biceps, right arm, initial encounter (principal); M19.011 Primary osteoarthritis, right shoulder; M25.511 Pain in right shoulder
CPT/HCPCS: 73221

== ENCOUNTER 2025-08-11 14:30 | Outpatient (RCR) | payer OTHER, SELFPAY ==
[2025-05-20 09:51] VITALS: BMI 26.0
--- NOTE | 2025-07-21 09:15 | PT.OPPOC ---
Physical, Occupational & Speech Therapy At [facility] Current Diagnoses Pain, unspecified (07/21/25) Visit Care Team Role Provider Type Kath Cardona MD Primary Care Provider Non-Staff Specialty: Family Practice Address: [address] [place] [address], [id number] Email: Alondra Burgos DO Attending Provider Physician Referring Provider Specialty: Orthopedics Orthopedic Surgery Address: [address] [place] [address], [id number] Email: [email or web address] Plan Of Care PT OP: Cervical/Upper Extremity Start: 07/21/25 08:13 Freq: Status: Active Protocol: Document 07/21/25 08:14 MARIPOSA (Rec: 07/21/25 09:14 MARIPOSA [id number]) Out-Patient Physical Therapy Visit Information Visit Information Visit Type Initial Evaluation Visit Start Time 08:15 Visit Stop Time 08:45 Visit Number 1 Number of TRANSPORT ANALYST Visits 0 Progress Note Due 08/20/25 Precautions Precautions R shoulder arthroscopy Open subpectoral biceps tenodesis OP-PT Subjective Patient Comments Patient Comments History of current diagnosis: Patient reports she was lifting a litre of fluid in May when she felt some pain in her R shoulder. She reports she was having some pain in that shoulder for a couple months prior to this as well. She is 5 weeks s/p R subpectoral biceps tenodesis on 06/10/[address] Burgos. She reports that after the surgery she was in a sling for about three weeks. She has been moving her shoulder actively below her shoulder. She has a history of R shoulder arthroscopy in 2020. 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 [employer] Physical activities/ hobbies: Walks about once per week Pain location: R shoulder Pain description: mild ache Pain 0-10/10 (current): 0/10 Pain 0-10/10 (worst): 1/10 Pain 0-10/10 (best): 0/10 Aggravating: externally rotating her shoulder Alleviating: neutral position of shoulder Function prior to injury: Independent with all ADLs Function current: Independent with all ADLs - limited with reaching, lifting, eating with R arm, opening doors, open food jars, vacuuming Patient goals: Return to full function with reaching, lifting Patient Questionnaires Quick Dash- Upper Extremity Quick Dash UE Score 52.3 Quick Dash UE 40 to 59% Impaired (Score 40-59) Impairment Shoulder Goniometric Range of Motion Shoulder Measured in Degrees Right Active Shoulder ROM WFL Yes Testing Position Supine Flexion 175 Abduction 180 External Rotation at 90 90 degrees Abduction External Rotation at 45 45 degrees Abduction R Shoulder ROM WFL No Testing Position Supine Flexion 90 Abduction 80 External Rotation at 40 45 degrees Abduction External Rotation at 60 0 degrees Abduction Comments Passive ranges^ Flexion and abduction pain limited Therapeutic Exercises Sitting Exercises Pendulums Side right Reps/Minutes x15 Abduction table slides Side right Reps/Minutes x15 Comments cues for keeping shoulder passive Flexion table slides Side right Reps/Minutes x15 Comments cues for keeping shoulder passive Physical Therapy Assessment Goals Three Impairment R shoulder strength Short Term Goal (STG Patient will demonstrate an increase in R shoulder ) flexion MMT to 3+/5 in order to better function with lifting. STG Duration 4 weeks Delivery Professional Goal (LTG) Patient will demonstrate an increase in R shoulder flexion MMT to 5/5 in order to better function with lifting. LTG Duration 8 weeks Two Impairment R shoulder general function Short Term Goal (STG Patient will demonstrate an reduction in quick DASH ) score to 42 in order to show a reduction in perceived disability. STG Duration 3 weeks Delivery Professional Goal (LTG) Patient will demonstrate an reduction in quick DASH score to 32 in order to show a reduction in perceived disability. LTG Duration 6 weeks One Impairment R shoulder AROM Short Term Goal (STG Patient will demonstrate an increase in R shoulder ) flexion AROM to 130 degrees in order to better function with reaching over head at work. STG Duration 3 weeks [facility] Goal (LTG) Patient will demonstrate an increase in R shoulder flexion AROM to 170 degrees in order to better function with reaching over head at work. LTG Duration 6 weeks Assessment Summary Assessment Patient presenting to PT s/p R subpectoral biceps tenodesis on 06/10/[address] Burgos. Functional deficits include lifting, reaching, vacuuming, opening doors, and jars. Objective investigation revealed deficits in R shoulder ROM (See objective measures: flexion, abduction, ER PROM), and function (see measures: quickDASH). Presentation is consistent with normal post-operative deficits and patient will benefit from PT to address deficits and return to prior level of function. Physical Therapy Plan Frequency and Duration Frequency of 2x/Week Treatment Duration of 12 treatment (weeks) Plan of Care Start 07/21/25 Date Plan of Care End 10/19/25 Date Therapeutic Interventions Therapeutic Aquatic Therapy,Coordination Training,Home Exercise Interventions Program,Joint Mobilizations,Manual Therapy, Neuromuscular Re-education,Patient/Caregiver Education, Self-Care/Home Management,Soft Tissue Mobilization, Taping,Therapeutic Activities,Therapeutic Exercises Modalities Biofeedback,Cold Pack/Ice Massage,Electric Stimulation, Hot Packs,Infrared Therapy,Iontophoresis,Ultrasound, Vasopneumatic Devices Next Visit Focus/Plan Next Note Type Treatment Note Next Visit Plan Initiate treatment with focus on shoulder PROM and gentle AAROM within pain-free ranges. Plan of Care Dates Plan of Care Start Date 07/21/25 Plan of Care End Date 10/19/25 Electronically Signed by: Noemi Wellington, PT 07/21/25 0915 If you are in agreement with this Plan of Care, please return a signed and dated copy. I have reviewed this Plan of Care and certify that the skilled therapy services above are required to meet the patient?s needs. Physician Signature Date Printed Name and Credentials Clinical Instructor Signature Printed Name and Credentials
--- NOTE | 2025-07-29 14:30 | PT.OTN ---
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 She reports she has been doing her home exercises. Therapeutic Exercises Sitting Exercises Cha abduction Side right Reps/Minutes x20 Cha flexion Side right Reps/Minutes x30 Pendulums Side right Reps/Minutes 2x15 Abduction table slides Side right Reps/Minutes x30 Comments cues for keeping shoulder passive Flexion table slides Side right Reps/Minutes x30 Comments cues for keeping shoulder passive Standing Exercises Dowel ER Reps/Minutes x30 Dowel abduction Reps/Minutes x30 Dowel flexion Reps/Minutes x30 Physical Therapy Assessment Goals Three Impairment R shoulder strength Short Term Goal (STG Patient will demonstrate an increase in R shoulder ) flexion MMT to 3+/5 in order to better function with lifting. STG Duration 4 weeks Rope Tier Goal (LTG) Patient will demonstrate an increase in R shoulder flexion MMT to 5/5 in order to better function with lifting. LTG Duration 8 weeks Two Impairment R shoulder general function Short Term Goal (STG Patient will demonstrate an reduction in quick DASH ) score to 42 in order to show a reduction in perceived disability. STG Duration 3 weeks Rope Tier Goal (LTG) Patient will demonstrate an reduction in quick DASH score to 32 in order to show a reduction in perceived disability. LTG Duration 6 weeks One Impairment R shoulder AROM Short Term Goal (STG Patient will demonstrate an increase in R shoulder ) flexion AROM to 130 degrees in order to better function with reaching over head at work. STG Duration 3 weeks Rope Tier Goal (LTG) Patient will demonstrate an increase in R shoulder flexion AROM to 170 degrees in order to better function with reaching over head at work. LTG Duration 6 weeks Assessment Summary Assessment Treatment focused on shoulder PROM and AAROM. Patient tolerated treatment well with no increases in pain levels and was able to complete near-full ROM with exercises today. Plan next session to follow up on home exercises and continue with plan of care per protocol. Physical Therapy Plan Frequency and Duration Frequency of 2x/Week Treatment Duration of 12 treatment (weeks) Plan of Care Start 07/21/25 Date Plan of Care End 10/19/25 Date Next Visit Focus/Plan Next Note Type Treatment Note Next Visit Plan Continue with plan of care focused on shoulder PROM and gentle AAROM within pain-free ranges. Consider initiating more AROM exercise next session as allowed per protocol.
--- NOTE | 2025-08-11 15:16 | PT.OTN ---
Current Diagnoses Pain, unspecified (08/11/25) Physical Therapy Treatment Note PT OP: Cervical/Upper Extremity Start: 07/21/25 08:13 Freq: Status: Active Protocol: Document 08/11/25 14:25 MARIPOSA (Rec: 08/11/25 15:16 MARIPOSA [id number]) Out-Patient Physical Therapy Visit Information Visit Information Visit Type Treatment Note Visit Start Time 14:30 Visit Stop Time 15:10 Visit Number 3 Number of FULL DECATOR OPERATOR Visits 0 Progress Note Due 08/20/25 Precautions Precautions R shoulder arthroscopy, open subpectoral biceps tenodesis DOS: 06/10/2025 OP-PT Subjective Patient Comments Patient Comments Patient reports her shoulder has been feeling great. She has had no pain recently. Therapeutic Exercises Sitting Exercises Supination/ pronation resisted Sitting Exercise Wrist Name Resistance 4# Reps/Minutes 3x10 Cha abduction Side right Reps/Minutes x20 Cha flexion Side right Reps/Minutes x30 Standing Exercises Triceps pull down Reps/Minutes 3x10 Scaption isotonics Reps/Minutes 3x10 Plank position shoulder taps Reps/Minutes 3x10 each side Comments Elevated table Band IR Resistance pink Reps/Minutes 3x10 Band ER Resistance pink Reps/Minutes 3x10 Biceps curl Resistance up to 4# Reps/Minutes 3x10 AROM Reps/Minutes x10 shoulder flexion, x10 shoulder abduction, x10 elbow flexion Physical Therapy Assessment Goals Three Impairment R shoulder strength Short Term Goal (STG Patient will demonstrate an increase in R shoulder ) flexion MMT to 3+/5 in order to better function with lifting. STG Duration 4 weeks Belt Builder Helper Goal (LTG) Patient will demonstrate an increase in R shoulder flexion MMT to 5/5 in order to better function with lifting. LTG Duration 8 weeks Two Impairment R shoulder general function Short Term Goal (STG Patient will demonstrate an reduction in quick DASH ) score to 42 in order to show a reduction in perceived disability. STG Duration 3 weeks Belt Builder Helper Goal (LTG) Patient will demonstrate an reduction in quick DASH score to 32 in order to show a reduction in perceived disability. LTG Duration 6 weeks One Impairment R shoulder AROM Short Term Goal (STG Patient will demonstrate an increase in R shoulder ) flexion AROM to 130 degrees in order to better function with reaching over head at work. STG Duration 3 weeks Belt Builder Helper Goal (LTG) Patient will demonstrate an increase in R shoulder flexion AROM to 170 degrees in order to better function with reaching over head at work. LTG Duration 6 weeks Assessment Summary Assessment Treatment focused on progressing shoulder AROM and initiating gentle strengthening per tenodesis protocol timeline. Patient tolerated treatment well with no increases in pain levels. Plan next session to follow up on home exercises and response to today's session and continue with plan of care. Physical Therapy Plan Frequency and Duration Frequency of 2x/Week Treatment Duration of 12 treatment (weeks) Plan of Care Start 07/21/25 Date Plan of Care End 10/19/25 Date Next Visit Focus/Plan Next Note Type Treatment Note Next Visit Plan Continue with plan of care focused on shoulder AROM and gentle strengthening as allowed per protocol. Follow up on HEP (see below). Current HEP: Band ER, neutral Band IR, neutral Elevated shoulder taps Scaption isotonics Biceps curl
--- NOTE | 2025-09-30 14:15 | PT.OPDS ---
Current Diagnoses Pain, unspecified (08/11/25) Visit Care Team Role Provider Type Kath Cardona MD Primary Care Provider Non-Staff Specialty: Family Practice Address: [address] [facility] [place], [address] Email: Alondra Burgos DO Attending Provider Physician Referring Provider Specialty: Orthopedics Orthopedic Surgery Address: [address] [place] [address], [address] Email: [email or web address] Visit Number Visit Number 3 Discharge Summary PT OP: Cervical/Upper Extremity Start: 07/21/25 08:13 Freq: Status: Active Protocol: Document 09/30/25 14:10 MARIPOSA (Rec: 09/30/25 14:15 MARIPOSA [id number]) Out-Patient Physical Therapy Visit Information Visit Information Visit Type Discharge Summary Physical Therapy Assessment Assessment Summary Assessment Patient has not returned to PT in over one month. She has cancelled her remaining appointments and will be discharged at this time due to lack of follow up. Please reach out to [facility] with any questions.
== END 2025-10-01 08:47 | disposition home or self-care (01) ==
LOC: PHYS 14:30
PROVIDERS: PCP Family Medicine; Referring Provider Orthopaedic Surgery; Visit Provider Orthopaedic Surgery
DX: R52 Pain, unspecified (principal)
CPT/HCPCS: 97110; 97161

== ENCOUNTER → 2025-08-14 14:06 | Outpatient (CLI) | payer OTHER, SELFPAY ==
[2025-05-20 09:51] VITALS: BMI 26.0
--- NOTE | 2025-08-14 14:07 | DI.MG.S_ITS ---
MM screening mammo BI: 08/14/2025. BI-RADS: 1 CLINICAL: 55-year old female for bilateral screening mammogram. Tyrer-Cuzick lifetime risk of 8.6%. No personal or first-degree family history of breast cancer. PRIOR EXAMS: 08/13/2024, 08/09/2023, 08/21/2022, 08/12/2021, 08/11/2020, 08/06/2019, 08/30/2018, 08/05/2018, 08/02/2017. MAMMOGRAPHY TECHNIQUE: 2D and 3D (tomosynthesis) digital mammographic views obtained, with additional images as needed for full coverage. Current study was also evaluated with a Computer Aided Detection (CAD) system. DENSITY C. The breasts are heterogeneously dense, which may obscure small masses. MAMMOGRAPHY FINDINGS Bilateral: No suspicious mass, asymmetry, microcalcification, or other abnormality seen. IMPRESSION: * No evidence of malignancy. RECOMMENDATIONS Bilateral * Annual screening mammography. OVERALL ASSESSMENT CATEGORY BI-RADS-1: Negative. The [employer] recommends annual screening mammography beginning at age 40 for women with average risk of breast cancer. ELECTRONICALLY SIGNED: Bonita Ellis M.D. on 08/16/2025 at 03:56:27 PM PT Interpreting Station ID: [id number]
== END ==
LOC: MAMMO 14:07
PROVIDERS: PCP Family Medicine; Referring Provider Family Medicine; Visit Provider Family Medicine
DX: Z12.31 Encounter for screening mammogram for malignant neoplasm of breast (principal); R92.333 Mammographic heterogeneous density, bilateral breasts
CPT/HCPCS: 77063; 77067